=== PATIENT | male | born 1950 | race Hispanic/Latino ===

== ENCOUNTER 2017-02-04 08:17 | Day surgery (SDC) | payer BC, MEDICARE ==
[2017-01-23 08:43] VITALS: BMI 26.6
[2017-02-04] MEDS ORDERED: Propofol 10 mg/ml Inj (20 ML) ONE (10:33)
[2017-02-04] MEDS ORDERED: Sodium Chloride 0.9% 1,000 ML IV SCH (11:15)
[2017-02-04 11:29] VITALS: TEMP 98.3; O2SAT 97
[2017-02-04 11:38] VITALS: RESP 15
[2017-02-04 11:47] VITALS: PULSE 69
[2017-02-04 12:36] VITALS: BP 116/73
== END 2017-02-04 12:00 | disposition home or self-care (01) ==
LOC: ENDO 08:17
PROVIDERS: ATTEND Internal Medicine Gastroenterology
DX: D12.4 Benign neoplasm of descending colon (principal); K63.5 Polyp of colon; K59.00 Constipation, unspecified; K57.30 Diverticulosis of large intestine without perforation or abscess without bleeding; K64.8 Other hemorrhoids; Z80.0 Family history of malignant neoplasm of digestive organs
CPT/HCPCS: 45381; 45385; 88305; J2704; J7040

== ENCOUNTER 2017-12-25 14:10 | Inpatient (IN) | payer MEDICARE, OTHER ==
[2017-12-25 14:20] VITALS: BMI 22.1
--- NOTE | 2017-12-25 14:38 | ED PDOC ---
Arrival/HPI - General Chief Complaint: Dizziness/Lightheaded Time Seen by Provider: 12/25/17 14:23 Historian: Patient - History of Present Illness Narrative History of Present Illness (Text): 12/25/17 14:39 67 year old male, on Plavix, whose PMHx includes HTN, who presents to the ED complaining of lower abdominal pain since this morning. Pt reports lightheadedness and dizziness with walking, stating that the room was "spinning ." Patient additionally reports associated nausea and black stool. Of note, patient had recent colonoscopy done on 06/25 with positive findings for diverticulosis and internal hemorrhoids. Patient denies any fever, chills, vomiting, diarrhea, chest pain, shortness of breath, cough, headache, neck pain, back pain, or any other complaints. PMD: Dr. Jenkins GI: Dr. Noyola 12/25/17 14:47 Time/Duration: 1-3 hours Symptom Course: Unchanged Quality: Aching Activities at Onset: Light Context: Home Past Medical History - Provider Review Nursing Documentation Reviewed: Yes - Cardiac Hx Pacemaker: No - Pulmonary Hx Asthma: Yes - Neurological Hx Paralysis: No - HEENT Hx HEENT Disorder: No - Endocrine/Metabolic Hx Endocrine Disorders: No Hx Diabetes Mellitus Type 2: Yes (borderline no meds) - Hematological/Oncological Hx Blood Transfusions: No - Integumentary Hx Dermatological Disorder: No - Musculoskeletal/Rheumatological Hx Musculoskeletal Disorders: No - Gastrointestinal Hx Gastrointestinal Disorders: Yes (gastritis, hiatal hernia) - Genitourinary/Gynecological Hx Genitourinary Disorders: Yes (blader retention negative test results) - Psychiatric Hx Emotional Abuse: No Hx Physical Abuse: No Hx Substance Use: No - Anesthesia Hx Anesthesia Reactions: No Hx Malignant Hyperthermia: No - Suicidal Assessment Feels Threatened In Home Enviroment: No Family/Social History - Physician Review Nursing Documentation Reviewed: Yes Family/Social History: Unknown Family HX Smoking Status: Never Smoked Hx Alcohol Use: Yes (WINE ON OCCASION) Hx Substance Use: No Allergies/Home Meds Allergies/Adverse Reactions: Allergies Penicillins Allergy (Verified 12/25/17 18:18) RASH SEASONAL Allergy (Uncoded 12/25/17 18:18) CONGESTION Home Medications: Home Meds Medication Instructions Recorded Confirmed Aspirin 81 mg PO DAILY 02/01/15 12/25/17 Atorvastatin Calcium [Lipitor] 40 mg PO DIN 02/01/15 12/25/17 Clopidogrel [Plavix] 75 mg PO DAILY 02/01/15 12/25/17 Losartan/Hydrochlorothiazide 1 tab PO DAILY 01/23/17 12/25/17 [Losartan-Hctz 100-25 mg Tab] RX: Metoprolol Tartrate [Lopressor] 25 mg PO BID 01/23/17 12/25/17 Review of Systems - Physician Review All systems were reviewed & negative as marked: Yes - Review of Systems Constitutional: absent: Fevers Respiratory: absent: SOB, Cough Cardiovascular: absent: Chest Pain Gastrointestinal: Abdominal Pain, Stool Changes, Nausea. absent: Diarrhea, Vomiting Musculoskeletal: absent: Back Pain, Neck Pain Neurological: Dizziness. absent: Headache Physical Exam Vital Signs Reviewed: Yes Vital Signs Temp Pulse Resp BP Pulse Ox 12/25/17 14:20 98.5 F 100 H 18 119/79 99 Temperature: Afebrile Blood Pressure: Normal Pulse: Regular Respiratory Rate: Normal Appearance: Positive for: Non-Toxic, Comfortable, Other (pale appearing) Pain Distress: None Mental Status: Positive for: Alert and Oriented X 3 - Systems Exam Head: Present: Atraumatic, Normocephalic Pupils: Present: PERRL Extroacular Muscles: Present: EOMI Conjunctiva: Present: Normal Mouth: Present: Moist Mucous Membranes Neck: Present: Normal Range of Motion Respiratory/Chest: Present: Clear to Auscultation, Good Air Exchange. No: Respiratory Distress, Accessory Muscle Use Cardiovascular: Present: Regular Rate and Rhythm, Normal S1, S2. No: Murmurs Abdomen: No: Tenderness, Distention, Peritoneal Signs Rectal: Present: Other (guaiac positive) Back: Present: Normal Inspection Upper Extremity: Present: Normal Inspection. No: Cyanosis, Edema Lower Extremity: Present: Normal Inspection. No: Edema Neurological: Present: GCS=15, CN II-XII Intact, Speech Normal Skin: Present: Warm, Dry, Pale. No: Rashes Psychiatric: Present: Alert, Oriented x 3, Normal Insight, Normal Concentration Medical Decision Making ED Course and Treatment: 12/25/17 14:53 Impression: 67 year old pale who presents to the Ed with complaints of lower abdominal pain and dizziness. Differential Diagnosis included but are not limited to: GI bleed, suspect upper. abd soft no ttp. Plan: -- Labs -- EKG -- Chest X-ray -- Protonix -- IV fluids -- UA -- Reassess and disposition Prior Visits: Notes and results from previous visits were reviewed. Progress Notes: 12/25/17 15:39 Chest X-ray reviewed by radiologist, shows no active disease. 12/28/17 12:[address] diggs 12/28/17 12:08 h/h stable labs suggestive of upper gi bleed. - RAD Interpretation Contract Engineer: Radiologist - Jarrell Statement The provider has reviewed the documentation as recorded by the Jarrell romano with [facility] All medical record entries made by the Jarrell were at my direction and personally dictated by me. I have reviewed the chart and agree that the record accurately reflects my personal performance of the history, physical exam, [facility] decision making, and the department course for this patient. I have also personally directed, reviewed, and agree with the discharge instructions and disposition. Disposition/Present on Arrival - Present on Arrival Any Indicators Present on Arrival: No History of DVT/PE: No History of Uncontrolled Diabetes: No Urinary Catheter: No History of Decub. Ulcer: No History Surgical Site Infection Following: None - Disposition Have Diagnosis and Disposition been Completed?: Yes Diagnosis: Upper GI bleed Disposition: HOSPITALIZED Disposition Time: 06:00 Condition: FAIR
[2017-12-25] MEDS ORDERED: Sodium Chloride 0.9% 1,000 ML IV STA (14:39)
--- NOTE | 2017-12-25 15:05 | RAD ---
Date of service: 12/25/2017 HISTORY: abd pain COMPARISON: 05/02/2017 FINDINGS: LUNGS: No active pulmonary disease. PLEURA: No significant pleural effusion identified, no pneumothorax apparent. CARDIOVASCULAR: No atherosclerotic calcification present No radiographic findings to suggest acute or significant cardiovascular disease. OSSEOUS STRUCTURES: No significant abnormalities. VISUALIZED UPPER ABDOMEN: Normal. OTHER FINDINGS: None. IMPRESSION: No active disease. No significant interval change compared to the prior examination(s).
[2017-12-25] MEDS: Pantoprazole 40mg/100mL NS 40 MG/100 ML BAG IVPB SCH ×2 (15:26→21:09)
[2017-12-25 16:06] LABS: BASO # 0.03 K/mm3 (0.0-2.0); BASO % 0.3 % (0.0-3.0); EOS % 0.3 % (1.5-5.0); GRAN # 8.01 (1.4-6.5); GRAN % 85.6 % (50.0-68.0); HEMOGLOBIN 11.7 g/dL (14.0-18.0); LYMPH # 1.1 (1.2-3.4); LYMPH % 11.2 % (22.0-35.0); MEAN CELL VOLUME 91.4 fl (80.0-105.0); MEAN CORPUSCULAR HEMOGLOBIN 31.3 pg (25.0-35.0); MEAN CORPUSCULAR HGB CONC 34.2 g/dl (31.0-37.0); MEAN PLATELET VOLUME 10.4 fl (7.0-11.0); MONO # 0.2 (0.1-0.6); MONO % 2.6 % (1.0-6.0); RBC 3.74 10^6/uL (3.5-6.1); RED CELL DISTRIBUTION WIDTH 12.1 % (11.5-14.5); WHITE BLOOD COUNT 9.4 10^3/ul (4.5-11.0)
[2017-12-25 16:07] LABS: INR 1.11; PARTIAL THROMBOPLASTIN TIME 24.9 Seconds (25.1-36.5); PROTHROMBIN TIME 12.7 SECONDS (9.4-12.5)
[2017-12-25 16:08] LABS: ALB/GLOB RATIO 1.5 (1.1-1.8); ALBUMIN 3.8 g/dL (3.0-4.8); ALT/SGPT 65 U/L (7-56); AST/SGOT 57 U/L (17-59); BLOOD UREA NITROGEN 58 mg/dL (7-21); CALCIUM 9.1 mg/dL (8.4-10.5); GFR NON-AFRICAN AMERICAN > 60; LIPASE 75 U/L (23-300)
[2017-12-25 16:18] LABS: TROPONIN I < 0.01 ng/mL
[2017-12-25 16:33] LABS: CK-MB 3.1 ng/mL (0.0-3.6)
[2017-12-25 17:16] LABS: URINE BILIRUBIN NEGATIVE (NEGATIVE); URINE BLOOD NEGATIVE (NEGATIVE); URINE GLUCOSE (UA) NEGATIVE (NEGATIVE); URINE LEUKOCYTE ESTERASE NEGATIVE Leu/uL (NEGATIVE); URINE PROTEIN NEGATIVE mg/dL (<30 mg/dL); URINE UROBILINOGEN 0.2 E.U./dL (<1 E.U./dL)
[2017-12-25] MEDS ORDERED: Sodium Chloride 0.9% 1,000 ML IV SCH (17:45)
[2017-12-25 17:54] LABS: URINE APPEARANCE CLEAR (CLEAR)
--- NOTE | 2017-12-25 18:39 | CP.PCM.HP ---
<Regis Lerner - Last Filed: 12/25/17 20:25> History of Present Illness - History of Present Illness History of Present Illness: Regis Lerner PGY2 IM H&P Note for Dr. Heath cc: dizziness and lightheadedness after large dark stools Mr. Casas is a 67 year old male with a PMH of CAD, STEMI s/p PTCA w/ OUSMANE x 3 (2014) on ASA/Plavix, diverticulosis, internal hemorrhoids , colonic polyps, BPH and HTN who presented to the ED with dizziness and light headedness that started a few hours prior to presentation. After breakfast, the patient states that he had a normal bowel movement with normal caliber, but then had a large loose BM that was dark in color. Afterward, the patient became light headed and felt dizzy and had to sit down. He states that he had two smaller BM's afterward that were also dark in nature. In ED, the is bedside and states that the patient became dizzy, fell onto the stretcher as he was trying to stand. The patient denies any prior episodes of GI bleed, vomiting or dark stools. He also denies any episodes of fresh blood on toilet paper when wiping. He denies any excessive use of NSAIDS. The patient also denies any current chest or abdominal pain, nausea/vomiting, numbness/tingling. 12-pt ROS was reviewed and is otherwise unremarkable. Prior charts were reviewed and patient's last colonoscopy was 01/2017 and showed diverticulosis, internal hemorrhoids and polyps that were biopsied. Patient had a LHC for STEMI in 01/2015 for which he received OUSMANE in RCA, LAD and PDA. In ED, patient was noted to be guaiac positive by ED MD. He was given NS 1L bolus and started on PTX drip. PMD: Dr. Jenkins Cardio: Dr. Antunez/Dr. Cordero PMH: as above PSH: prostate surgery (w/ Dr. Cortés) Meds: reviewed, as per MAR; patient is unsure why he's still on ASA/Plavix for >1 yr but his (who works w/ Dr. Cordero) states it's because it was a large [place] Allergies: Penicillin (rash), and seasonal allergies SHx: retired; denies tobacco or drug use; occasional EtOH (beer) FHx: mom: colon CA but of heart disease in 60's; dad: of heart disease Present on Admission - Present on Admission Any Indicators Present on Admission: No Review of Systems - Review of Systems All systems: reviewed and no additional remarkable complaints except (as per HPI) Past Patient History - Past Medical History & Family History Past Medical History?: Yes - Past Social History Smoking Status: Never Smoked Alcohol: Occasional Drugs: Denies Home Situation {Lives}: With Family - CARDIAC Hx Heart Attack: Yes (2014 s/p 3 stents) Hx Hypertension: Yes Hx Pacemaker: No - PULMONARY Hx Asthma: Yes - NEUROLOGICAL Hx Paralysis: No - HEENT Hx HEENT Problems: No - ENDOCRINE/METABOLIC Hx Endocrine Disorders: No - HEMATOLOGICAL/ONCOLOGICAL Hx Blood Disorders: No Hx Blood Transfusions: No - INTEGUMENTARY Hx Dermatological Problems: No - MUSCULOSKELETAL/RHEUMATOLOGICAL Hx Musculoskeletal Disorders: No - GASTROINTESTINAL Hx Constipation: Yes - GENITOURINARY/GYNECOLOGICAL Hx Prostate Problems: Yes (BPH ) - PSYCHIATRIC Hx Emotional Abuse: No Hx Physical Abuse: No Hx Substance Use: No - SURGICAL HISTORY Hx Surgeries: Yes Other/Comment: prostate - ANESTHESIA Hx Anesthesia Reactions: No Hx Malignant Hyperthermia: No Meds Allergies/Adverse Reactions: Allergies Allergy/AdvReac Type Severity Reaction Status Date / Time Penicillins Allergy RASH Verified 12/25/17 18:18 SEASONAL Allergy CONGESTION Uncoded 12/25/17 18:18 Physical Exam - Constitutional Appears: No Acute Distress - Head Exam Head Exam: NORMAL INSPECTION - Eye Exam Eye Exam: EOMI, PERRL. absent: Normal appearance Additional comments: pallor - ENT Exam ENT Exam: Mucous Membranes Dry - Neck Exam Neck exam: Positive for: Normal Inspection - Respiratory Exam Respiratory Exam: NORMAL BREATHING PATTERN. absent: Rales, Rhonchi, Wheezes - Cardiovascular Exam Cardiovascular Exam: Tachycardia, +S1, +S2 Additional comments: orthostasis + - GI/Abdominal Exam GI & Abdominal Exam: Soft. absent: Distended, Organomegaly, Tenderness - Extremities Exam Extremities exam: Positive for: full ROM. Negative for: pedal edema - Back Exam Back exam: NORMAL INSPECTION - Neurological Exam Neurological exam: Alert, Oriented x3 - Psychiatric Exam Psychiatric exam: Normal Mood - Skin Skin Exam: Pallor Results - Vital Signs Recent Vital Signs: Last Vital Signs Temp 98.9 F 12/25/17 18:03 Pulse 93 H 12/25/17 18:03 Resp 18 12/25/17 18:03 BP 104/68 12/25/17 16:54 Pulse Ox 97 12/25/17 18:03 - Labs Result Diagrams: 12/25/17 15:53 12/25/17 15:53 Labs: Laboratory Results - last 24 hr 12/25/17 12/25/17 12/25/17 15:53 15:53 15:53 WBC 9.4 D RBC 3.74 Hgb 11.7 L Hct 34.2 L MCV 91.4 MCH 31.3 MCHC 34.2 RDW 12.1 Plt Count 206 MPV 10.4 Gran % 85.6 H Lymph % (Auto) 11.2 L [place] % (Auto) 2.6 Eos % (Auto) 0.3 L Baso % (Auto) 0.3 Gran # 8.01 H Lymph # (Auto) 1.1 L [place] # (Auto) 0.2 Eos # (Auto) 0.0 Baso # (Auto) 0.03 PT 12.7 H INR 1.11 APTT 24.9 L Sodium 135 Potassium 5.4 H Chloride 98 Carbon Dioxide 27 Anion Gap 16 BUN 58 H Creatinine 0.9 Est GFR ( Amer) > 60 Est GFR (Non-Af Amer) > 60 Random Glucose 186 H Calcium 9.1 Magnesium 1.6 L Total Bilirubin 0.7 AST 57 ALT 65 H Alkaline Phosphatase 51 Lactate Dehydrogenase 449 Total Creatine Kinase 326 H CK-MB (CK-2) 3.1 CK-MB (CK-2) % Cancelled Troponin I < 0.01 D Total Protein 6.4 Albumin 3.8 Globulin 2.6 Albumin/Globulin Ratio 1.5 Lipase 75 Urine Color Urine Appearance Urine pH Ur Specific [place] Urine Protein Urine Glucose (UA) Urine Ketones Urine Blood Urine Nitrate Urine Bilirubin Urine Urobilinogen Ur Leukocyte Esterase Blood Type Antibody Screen BBK History Checked 12/25/17 12/25/17 15:53 17:00 WBC RBC Hgb Hct MCV MCH MCHC RDW Plt Count MPV Gran % Lymph % (Auto) [place] % (Auto) Eos % (Auto) Baso % (Auto) Gran # Lymph # (Auto) [place] # (Auto) Eos # (Auto) Baso # (Auto) PT INR APTT Sodium Potassium Chloride Carbon Dioxide Anion Gap BUN Creatinine Est GFR ( Amer) Est GFR (Non-Af Amer) Random Glucose Calcium Magnesium Total Bilirubin AST ALT Alkaline Phosphatase Lactate Dehydrogenase Total Creatine Kinase CK-MB (CK-2) CK-MB (CK-2) % Troponin I Total Protein Albumin Globulin Albumin/Globulin Ratio Lipase Urine Color yellow Urine Appearance Clear Urine pH 6.0 Ur Specific [place] 1.020 Urine Protein Negative Urine Glucose (UA) Negative Urine Ketones 15 H Urine Blood Negative Urine Nitrate Negative Urine Bilirubin Negative Urine Urobilinogen 0.2 Ur Leukocyte Esterase Negative Blood Type A NEGATIVE Antibody Screen Negative BBK History Checked No verified bt Assessment & Plan - Assessment and Plan (Free Text) Assessment: 67 year old male with a PMH of CAD, STEMI s/p PTCA w/ OUSMANE x 3 (2014) on ASA/Plavix, diverticulosis, internal hemorrhoids , colonic polyps, BPH and HTN who presented to the ED with dizziness and light headedness after having a large dark bowel movement. Labs and VS reviewed. Patient is likely having an upper GI bleed, with symptomatic anemia (H/H may be masked by hemo- concentration) evident by orthostasis. Plan: 1. Dizziness likely 2/2 orthostasis due to upper GI bleed - NS 1L bolus followed by NS @ 125 - PTX drip started by ED - holding ASA/Plavix - avoid blood thinners or NSAIDS - NPO - bedrest - CBC q6 hrs - f/u AM labs - EKG was reviewed - VS q6 hrs - due to dizziness, will obtain CT Head - GI consulted, recs appreciated 2. Hx CAD - holding ASA/Plavix at this time until cleared by GI - holding PO meds as BP is well controlled - Cardio is consulted, recs appreciated 3. Hx BPH - ordered bladder scan prn - straight cath if post-void residual is > 200cc PTX gtt SCDs for DVT ppx NPO Case was reviewed and discussed with attending, Dr. Ivana Lerner PGY2 <Ankita Heath - Last Filed: 12/26/17 16:09> Results - Vital Signs Recent Vital Signs: Last Vital Signs Temp 98.5 F 12/26/17 12:11 Pulse 85 12/26/17 12:00 Resp 17 12/26/17 06:45 BP 103/59 L 12/26/17 06:00 Pulse Ox 100 12/26/17 14:58 - Labs Result Diagrams: 12/26/17 13:10 12/26/17 02:04 Labs: Laboratory Results - last 24 hr 12/25/17 12/25/17 12/25/17 15:53 15:53 15:53 WBC 9.4 D RBC 3.74 Hgb 11.7 L Hct 34.2 L MCV 91.4 MCH 31.3 MCHC 34.2 RDW 12.1 Plt Count 206 MPV 10.4 Gran % 85.6 H Lymph % (Auto) 11.2 L [place] % (Auto) 2.6 Eos % (Auto) 0.3 L Baso % (Auto) 0.3 Gran # 8.01 H Lymph # (Auto) 1.1 L [place] # (Auto) 0.2 Eos # (Auto) 0.0 Baso # (Auto) 0.03 PT 12.7 H INR 1.11 APTT 24.9 L Sodium 135 Potassium 5.4 H Chloride 98 Carbon Dioxide 27 Anion Gap 16 BUN 58 H Creatinine 0.9 Est GFR ( Amer) > 60 Est GFR (Non-Af Amer) > 60 POC Glucose (mg/dL) Random Glucose 186 H Hemoglobin A1c Calcium 9.1 Phosphorus Magnesium 1.6 L Total Bilirubin 0.7 AST 57 ALT 65 H Alkaline Phosphatase 51 Lactate Dehydrogenase 449 Total Creatine Kinase 326 H CK-MB (CK-2) 3.1 CK-MB (CK-2) % Cancelled Troponin I < 0.01 D Total Protein 6.4 Albumin 3.8 Globulin 2.6 Albumin/Globulin Ratio 1.5 Triglycerides Cholesterol LDL Cholesterol Direct HDL Cholesterol Lipase 75 TSH 3rd Generation Urine Color Urine Appearance Urine pH Ur Specific [place] Urine Protein Urine Glucose (UA) Urine Ketones Urine Blood Urine Nitrate Urine Bilirubin Urine Urobilinogen Ur Leukocyte Esterase Blood Type Blood Type Confirm Antibody Screen Crossmatch BBK History Checked 12/25/17 12/25/17 12/25/17 15:53 17:00 18:00 WBC RBC Hgb Hct MCV MCH MCHC RDW Plt Count MPV Gran % Lymph % (Auto) [place] % (Auto) Eos % (Auto) Baso % (Auto) Gran # Lymph # (Auto) [place] # (Auto) Eos # (Auto) Baso # (Auto) PT INR APTT Sodium Potassium Chloride Carbon Dioxide Anion Gap BUN Creatinine Est GFR ( Amer) Est GFR (Non-Af Amer) POC Glucose (mg/dL) Random Glucose Hemoglobin A1c Calcium Phosphorus Magnesium Total Bilirubin AST ALT Alkaline Phosphatase Lactate Dehydrogenase Total Creatine Kinase CK-MB (CK-2) CK-MB (CK-2) % Troponin I Total Protein Albumin Globulin Albumin/Globulin Ratio Triglycerides Cholesterol LDL Cholesterol Direct HDL Cholesterol Lipase TSH 3rd Generation Urine Color yellow Urine Appearance Clear Urine pH 6.0 Ur Specific [place] 1.020 Urine Protein Negative Urine Glucose (UA) Negative Urine Ketones 15 H Urine Blood Negative Urine Nitrate Negative Urine Bilirubin Negative Urine Urobilinogen 0.2 Ur Leukocyte Esterase Negative Blood Type A NEGATIVE Blood Type Confirm A NEGATIVE Antibody Screen Negative Crossmatch See Detail BBK History Checked No verified bt 12/25/17 12/25/17 12/25/17 21:01 21:01 21:01 WBC 10.2 RBC 3.19 L Hgb 10.0 L Hct 29.0 L MCV 90.9 MCH 31.3 MCHC 34.5 RDW 12.2 Plt Count 193 MPV 9.9 Gran % 89.6 H Lymph % (Auto) 7.4 L [place] % (Auto) 2.9 Eos % (Auto) 0.0 L Baso % (Auto) 0.1 Gran # 9.13 H Lymph # (Auto) 0.8 L [place] # (Auto) 0.3 Eos # (Auto) 0.0 Baso # (Auto) 0.01 PT INR APTT Sodium Potassium Chloride Carbon Dioxide Anion Gap BUN Creatinine Est GFR ( Amer) Est GFR (Non-Af Amer) POC Glucose (mg/dL) Random Glucose Hemoglobin A1c 5.6 Calcium Phosphorus Magnesium Total Bilirubin AST ALT Alkaline Phosphatase Lactate Dehydrogenase 349 Total Creatine Kinase 225 CK-MB (CK-2) CK-MB (CK-2) % Troponin I 0.02 D Total Protein Albumin Globulin Albumin/Globulin Ratio Triglycerides 126 Cholesterol 99 L LDL Cholesterol Direct 54 HDL Cholesterol 38 Lipase TSH 3rd Generation Urine Color Urine Appearance Urine pH Ur Specific [place] Urine Protein Urine Glucose (UA) Urine Ketones Urine Blood Urine Nitrate Urine Bilirubin Urine Urobilinogen Ur Leukocyte Esterase Blood Type Blood Type Confirm Antibody Screen Crossmatch BBK History Checked 12/25/17 12/25/17 12/26/17 21:01 21:01 02:04 WBC RBC Hgb Hct MCV MCH MCHC RDW Plt Count MPV Gran % Lymph % (Auto) [place] % (Auto) Eos % (Auto) Baso % (Auto) Gran # Lymph # (Auto) [place] # (Auto) Eos # (Auto) Baso # (Auto) PT INR APTT Sodium 135 135 Potassium 4.7 3.9 Chloride 101 103 Carbon Dioxide 26 26 Anion Gap 13 10 BUN 60 H 55 H Creatinine 0.9 0.9 Est GFR ( Amer) > 60 > 60 Est GFR (Non-Af Amer) > 60 > 60 POC Glucose (mg/dL) Random Glucose 167 H 133 H Hemoglobin A1c Calcium 8.6 8.3 L Phosphorus 4.0 Magnesium 2.1 Total Bilirubin 1.0 AST 38 ALT 54 Alkaline Phosphatase 44 Lactate Dehydrogenase 331 L Total Creatine Kinase 181 CK-MB (CK-2) CK-MB (CK-2) % Troponin I 0.02 Total Protein 5.7 L Albumin 3.2 Globulin 2.5 Albumin/Globulin Ratio 1.3 Triglycerides Cholesterol LDL Cholesterol Direct HDL Cholesterol Lipase TSH 3rd Generation 0.40 L Urine Color Urine Appearance Urine pH Ur Specific [place] Urine Protein Urine Glucose (UA) Urine Ketones Urine Blood Urine Nitrate Urine Bilirubin Urine Urobilinogen Ur Leukocyte Esterase Blood Type Blood Type Confirm Antibody Screen Crossmatch BBK History Checked 12/26/17 12/26/17 12/26/17 02:04 08:15 11:46 WBC 7.9 D 7.6 RBC 3.38 L 3.21 L Hgb 10.3 L 9.6 L Hct 29.8 L 28.2 L MCV 88.2 87.9 MCH 30.5 29.9 MCHC 34.6 34.0 RDW 13.5 13.8 Plt Count 160 152 MPV 9.4 9.5 Gran % Lymph % (Auto) [place] % (Auto) Eos % (Auto) Baso % (Auto) Gran # Lymph # (Auto) [place] # (Auto) Eos # (Auto) Baso # (Auto) PT INR APTT Sodium Potassium Chloride Carbon Dioxide Anion Gap BUN Creatinine Est GFR ( Amer) Est GFR (Non-Af Amer) POC Glucose (mg/dL) 114 H Random Glucose Hemoglobin A1c Calcium Phosphorus Magnesium Total Bilirubin AST ALT Alkaline Phosphatase Lactate Dehydrogenase Total Creatine Kinase CK-MB (CK-2) CK-MB (CK-2) % Troponin I Total Protein Albumin Globulin Albumin/Globulin Ratio Triglycerides Cholesterol LDL Cholesterol Direct HDL Cholesterol Lipase TSH 3rd Generation Urine Color Urine Appearance Urine pH Ur Specific [place] Urine Protein Urine Glucose (UA) Urine Ketones Urine Blood Urine Nitrate Urine Bilirubin Urine Urobilinogen Ur Leukocyte Esterase Blood Type Blood Type Confirm Antibody Screen Crossmatch BBK History Checked 12/26/17 13:10 WBC 8.4 RBC 3.30 L Hgb 10.0 L Hct 29.1 L MCV 88.2 MCH 30.3 MCHC 34.4 RDW 14.1 Plt Count 165 MPV 9.6 Gran % Lymph % (Auto) [place] % (Auto) Eos % (Auto) Baso % (Auto) Gran # Lymph # (Auto) [place] # (Auto) Eos # (Auto) Baso # (Auto) PT INR APTT Sodium Potassium Chloride Carbon Dioxide Anion Gap BUN Creatinine Est GFR ( Amer) Est GFR (Non-Af Amer) POC Glucose (mg/dL) Random Glucose Hemoglobin A1c Calcium Phosphorus Magnesium Total Bilirubin AST ALT Alkaline Phosphatase Lactate Dehydrogenase Total Creatine Kinase CK-MB (CK-2) CK-MB (CK-2) % Troponin I Total Protein Albumin Globulin Albumin/Globulin Ratio Triglycerides Cholesterol LDL Cholesterol Direct HDL Cholesterol Lipase TSH 3rd Generation Urine Color Urine Appearance Urine pH Ur Specific [place] Urine Protein Urine Glucose (UA) Urine Ketones Urine Blood Urine Nitrate Urine Bilirubin Urine Urobilinogen Ur Leukocyte Esterase Blood Type Blood Type Confirm Antibody Screen Crossmatch BBK History Checked Attending/Attestation - Attestation I have personally seen and examined this patient.: Yes I have fully participated in the care of the patient.: Yes I have reviewed all pertinent clinical information: Yes Notes (Text): 12/26/17 16:04 Medical record note made by the resident after discussion with my direction and input after the patient was personally seen and examined by me. I have reviewed the chart and agree that the record accurately reflects by personal performance of the history, physical exam, data review, and medical decision-making, in the course for the patient. I have also personally directed the plan of care. 67 year old male with a PMH of CAD, STEMI s/p PTCA w/ OUSMANE x 3 (2014) on ASA/Plavix, diverticulosis, internal hemorrhoids , colonic polyps, BPH and HTN who presented to the ED with dizziness and light headedness after having a large dark bowel movement.Patient is tachycardiac .His symptoms are likely due to upper GI bleeding.We will hold Aspirin ,Plavix and NSAID. Continue aggressive IV hydration and Protonix drip. We will monitor Hemoglobin and Hematocrit We will GI consult for Endoscopy. Management plan was discussed in detail with patient. Education was provided.
--- NOTE | 2017-12-25 19:19 | CP.PCM.CON ---
<Richard Crowley - Last Filed: 12/25/17 19:41> History of Present Illness - History of Present Illness History of Present Illness: Ruddy Casas is a very pleasant 67M who presented with dizziness and black stool. Patient was at home when he developed diarrhea that was black. He has been taking aspirin, plavix daily and motrin as needed for joint pains. He has not been taking PPI medications. He denies previous history of gastric bleeding. He has had colonoscopy with diverticulosis and tubular adenoma. At time of my exam, patient was going for CT scan of head and a rapid response was called for syncope. Patient was alert and oriented but very pale. SBP was 120, and HR 98. PMHx - CAD and CHF. Past Patient History - Past Social History Smoking Status: Never Smoked - CARDIAC Hx Pacemaker: No - PULMONARY Hx Asthma: Yes - NEUROLOGICAL Hx Paralysis: No - HEENT Hx HEENT Problems: No - ENDOCRINE/METABOLIC Hx Endocrine Disorders: No Hx Diabetes Mellitus Type 2: Yes (borderline no meds) - HEMATOLOGICAL/ONCOLOGICAL Hx Blood Transfusions: No - INTEGUMENTARY Hx Dermatological Problems: No - MUSCULOSKELETAL/RHEUMATOLOGICAL Hx Musculoskeletal Disorders: No - GASTROINTESTINAL Hx Gastrointestinal Disorders: Yes (gastritis, hiatal hernia) - GENITOURINARY/GYNECOLOGICAL Hx Genitourinary Disorders: Yes (blader retention negative test results) - PSYCHIATRIC Hx Emotional Abuse: No Hx Physical Abuse: No Hx Substance Use: No - SURGICAL HISTORY Hx Surgeries: Yes - ANESTHESIA Hx Anesthesia Reactions: No Hx Malignant Hyperthermia: No Meds Home Medications: Home Medication List Medication Instructions Recorded Confirmed Type Pantoprazole [Protonix] 40 mg PO DAILY #30 ect 12/28/17 Rx Allergies/Adverse Reactions: Allergies Allergy/AdvReac Type Severity Reaction Status Date / Time Penicillins Allergy RASH Verified 12/25/17 18:18 SEASONAL Allergy CONGESTION Uncoded 12/25/17 18:18 - Medications Medications: Current Medications Pantoprazole Sodium (Protonix 40mg Ivpb) 40 mg in 100 mls @ 20 mls/hr IVPB .Q5H [facility] Last Admin: 12/25/17 15:26 Dose: 20 mls/hr Sodium Chloride (Sodium Chloride 0.9%) 1,000 mls @ 125 mls/hr IV .Q8H [facility] Physical Exam - Constitutional Appears: Non-toxic, No Acute Distress Additional comments: Diaphoretic - Head Exam Head Exam: ATRAUMATIC, NORMAL INSPECTION - Eye Exam Eye Exam: EOMI, Normal appearance - ENT Exam ENT Exam: Mucous Membranes Moist, Normal Exam - Respiratory Exam Respiratory Exam: Clear to Auscultation Bilateral, NORMAL BREATHING PATTERN - Cardiovascular Exam Cardiovascular Exam: Tachycardia, RRR, +S1, +S2 - GI/Abdominal Exam GI & Abdominal Exam: Normal Bowel Sounds, Soft. absent: Distended, Tenderness - Rectal Exam Rectal Exam: Deferred - Extremities Exam Extremities exam: Positive for: normal inspection - Neurological Exam Neurological exam: Alert, CN II-XII Intact, Oriented x3 - Psychiatric Exam Psychiatric exam: Normal Affect, Normal Mood - Skin Skin Exam: Diaphoretic, Pallor Results - Vital Signs Recent Vital Signs: Last Vital Signs Temp 98.9 F 12/25/17 18:03 Pulse 93 H 12/25/17 18:03 Resp 18 12/25/17 18:03 BP 104/68 12/25/17 16:54 Pulse Ox 97 12/25/17 18:03 - Labs Result Diagrams: 12/25/17 15:53 12/25/17 15:53 Labs: Laboratory Results - last 24 hr 12/25/17 12/25/17 12/25/17 15:53 15:53 15:53 WBC 9.4 D RBC 3.74 Hgb 11.7 L Hct 34.2 L MCV 91.4 MCH 31.3 MCHC 34.2 RDW 12.1 Plt Count 206 MPV 10.4 Gran % 85.6 H Lymph % (Auto) 11.2 L [place] % (Auto) 2.6 Eos % (Auto) 0.3 L Baso % (Auto) 0.3 Gran # 8.01 H Lymph # (Auto) 1.1 L [place] # (Auto) 0.2 Eos # (Auto) 0.0 Baso # (Auto) 0.03 PT 12.7 H INR 1.11 APTT 24.9 L Sodium 135 Potassium 5.4 H Chloride 98 Carbon Dioxide 27 Anion Gap 16 BUN 58 H Creatinine 0.9 Est GFR ( Amer) > 60 Est GFR (Non-Af Amer) > 60 Random Glucose 186 H Calcium 9.1 Magnesium 1.6 L Total Bilirubin 0.7 AST 57 ALT 65 H Alkaline Phosphatase 51 Lactate Dehydrogenase 449 Total Creatine Kinase 326 H CK-MB (CK-2) 3.1 CK-MB (CK-2) % Cancelled Troponin I < 0.01 D Total Protein 6.4 Albumin 3.8 Globulin 2.6 Albumin/Globulin Ratio 1.5 Lipase 75 Urine Color Urine Appearance Urine pH Ur Specific [place] Urine Protein Urine Glucose (UA) Urine Ketones Urine Blood Urine Nitrate Urine Bilirubin Urine Urobilinogen Ur Leukocyte Esterase Blood Type Blood Type Confirm Antibody Screen BBK History Checked 12/25/17 12/25/17 12/25/17 15:53 17:00 18:00 WBC RBC Hgb Hct MCV MCH MCHC RDW Plt Count MPV Gran % Lymph % (Auto) [place] % (Auto) Eos % (Auto) Baso % (Auto) Gran # Lymph # (Auto) [place] # (Auto) Eos # (Auto) Baso # (Auto) PT INR APTT Sodium Potassium Chloride Carbon Dioxide Anion Gap BUN Creatinine Est GFR ( Amer) Est GFR (Non-Af Amer) Random Glucose Calcium Magnesium Total Bilirubin AST ALT Alkaline Phosphatase Lactate Dehydrogenase Total Creatine Kinase CK-MB (CK-2) CK-MB (CK-2) % Troponin I Total Protein Albumin Globulin Albumin/Globulin Ratio Lipase Urine Color yellow Urine Appearance Clear Urine pH 6.0 Ur Specific [place] 1.020 Urine Protein Negative Urine Glucose (UA) Negative Urine Ketones 15 H Urine Blood Negative Urine Nitrate Negative Urine Bilirubin Negative Urine Urobilinogen 0.2 Ur Leukocyte Esterase Negative Blood Type A NEGATIVE Blood Type Confirm A NEGATIVE Antibody Screen Negative BBK History Checked No verified bt Assessment & Plan - Assessment and Plan (Free Text) Assessment: 67M who has been taking aspirin, plavix, and as needed motrin without PPI is presenting with dark stool and syncope likely due to upper GI bleed #Acute blood loss anemia due to GI bleed #Syncope #CAD #possible chronic systolic CHF #HTN #Tubular adenoma PLAN -Likely upper GI bleed PUD -Recheck Hb q6h -Transfuse pRBCs for Hb less than 7 or symptomatic anemia. We will order 4 units and transfuse as needed after repeat CBC. -Continue PPI drip -Hold aspirin, plavix, NSAIDs, anticoagulation -We will consider platelets after discussion with cardiology and before EGD. -Plan for EGD tomorrow AM. -Discussed with ICU team about conservative fluid management. -NPO - Date & Time Date: 12/25/17 Time: 19:24 <Earnest Noyola V - Last Filed: 12/30/17 00:01> Meds - Medications Medications: Current Medications Pantoprazole Sodium (Protonix 40mg Ivpb) 40 mg in 100 mls @ 20 mls/hr IVPB .Q5H [facility] Last Admin: 12/25/17 21:09 Dose: 20 mls/hr Sodium Chloride (Sodium Chloride 0.9%) 1,000 mls @ 125 mls/hr IV .Q8H [facility] Sodium Chloride (Sodium Chloride 0.9%) 1,000 mls @ 60 mls/hr IV .[id number] [facility] Metoprolol Tartrate (Lopressor) 12.5 mg PO BID [facility] Last Admin: 12/25/17 21:09 Dose: 12.5 mg Results - Vital Signs Recent Vital Signs: Last Vital Signs Temp 99.1 F 12/25/17 23:33 Pulse 79 12/25/17 23:33 Resp 20 12/25/17 23:33 BP 113/64 12/25/17 23:33 Pulse Ox 100 12/25/17 23:00 - Labs Result Diagrams: 12/28/17 17:55 12/28/17 05:00 Labs: Laboratory Results - last 24 hr 12/25/17 12/25/17 12/25/17 15:53 15:53 15:53 WBC 9.4 D RBC 3.74 Hgb 11.7 L Hct 34.2 L MCV 91.4 MCH 31.3 MCHC 34.2 RDW 12.1 Plt Count 206 MPV 10.4 Gran % 85.6 H Lymph % (Auto) 11.2 L [place] % (Auto) 2.6 Eos % (Auto) 0.3 L Baso % (Auto) 0.3 Gran # 8.01 H Lymph # (Auto) 1.1 L [place] # (Auto) 0.2 Eos # (Auto) 0.0 Baso # (Auto) 0.03 PT 12.7 H INR 1.11 APTT 24.9 L Sodium 135 Potassium 5.4 H Chloride 98 Carbon Dioxide 27 Anion Gap 16 BUN 58 H Creatinine 0.9 Est GFR ( Amer) > 60 Est GFR (Non-Af Amer) > 60 Random Glucose 186 H Calcium 9.1 Magnesium 1.6 L Total Bilirubin 0.7 AST 57 ALT 65 H Alkaline Phosphatase 51 Lactate Dehydrogenase 449 Total Creatine Kinase 326 H CK-MB (CK-2) 3.1 CK-MB (CK-2) % Cancelled Troponin I < 0.01 D Total Protein 6.4 Albumin 3.8 Globulin 2.6 Albumin/Globulin Ratio 1.5 Triglycerides Cholesterol LDL Cholesterol Direct HDL Cholesterol Lipase 75 TSH 3rd Generation Urine Color Urine Appearance Urine pH Ur Specific [place] Urine Protein Urine Glucose (UA) Urine Ketones Urine Blood Urine Nitrate Urine Bilirubin Urine Urobilinogen Ur Leukocyte Esterase Blood Type Blood Type Confirm Antibody Screen Crossmatch BBK History Checked 12/25/17 12/25/17 12/25/17 15:53 17:00 18:00 WBC RBC Hgb Hct MCV MCH MCHC RDW Plt Count MPV Gran % Lymph % (Auto) [place] % (Auto) Eos % (Auto) Baso % (Auto) Gran # Lymph # (Auto) [place] # (Auto) Eos # (Auto) Baso # (Auto) PT INR APTT Sodium Potassium Chloride Carbon Dioxide Anion Gap BUN Creatinine Est GFR ( Amer) Est GFR (Non-Af Amer) Random Glucose Calcium Magnesium Total Bilirubin AST ALT Alkaline Phosphatase Lactate Dehydrogenase Total Creatine Kinase CK-MB (CK-2) CK-MB (CK-2) % Troponin I Total Protein Albumin Globulin Albumin/Globulin Ratio Triglycerides Cholesterol LDL Cholesterol Direct HDL Cholesterol Lipase TSH 3rd Generation Urine Color yellow Urine Appearance Clear Urine pH 6.0 Ur Specific [place] 1.020 Urine Protein Negative Urine Glucose (UA) Negative Urine Ketones 15 H Urine Blood Negative Urine Nitrate Negative Urine Bilirubin Negative Urine Urobilinogen 0.2 Ur Leukocyte Esterase Negative Blood Type A NEGATIVE Blood Type Confirm A NEGATIVE Antibody Screen Negative Crossmatch See Detail BBK History Checked No verified bt 12/25/17 12/25/17 12/25/17 21:01 21:01 21:01 WBC 10.2 RBC 3.19 L Hgb 10.0 L Hct 29.0 L MCV 90.9 MCH 31.3 MCHC 34.5 RDW 12.2 Plt Count 193 MPV 9.9 Gran % 89.6 H Lymph % (Auto) 7.4 L [place] % (Auto) 2.9 Eos % (Auto) 0.0 L Baso % (Auto) 0.1 Gran # 9.13 H Lymph # (Auto) 0.8 L [place] # (Auto) 0.3 Eos # (Auto) 0.0 Baso # (Auto) 0.01 PT INR APTT Sodium Potassium Chloride Carbon Dioxide Anion Gap BUN Creatinine Est GFR ( Amer) Est GFR (Non-Af Amer) Random Glucose Calcium Magnesium Total Bilirubin AST ALT Alkaline Phosphatase Lactate Dehydrogenase 349 Total Creatine Kinase 225 CK-MB (CK-2) CK-MB (CK-2) % Troponin I 0.02 D Total Protein Albumin Globulin Albumin/Globulin Ratio Triglycerides 126 Cholesterol 99 L LDL Cholesterol Direct 54 HDL Cholesterol 38 Lipase TSH 3rd Generation 0.40 L Urine Color Urine Appearance Urine pH Ur Specific [place] Urine Protein Urine Glucose (UA) Urine Ketones Urine Blood Urine Nitrate Urine Bilirubin Urine Urobilinogen Ur Leukocyte Esterase Blood Type Blood Type Confirm Antibody Screen Crossmatch BBK History Checked 12/25/17 21:01 WBC RBC Hgb Hct MCV MCH MCHC RDW Plt Count MPV Gran % Lymph % (Auto) [place] % (Auto) Eos % (Auto) Baso % (Auto) Gran # Lymph # (Auto) [place] # (Auto) Eos # (Auto) Baso # (Auto) PT INR APTT Sodium 135 Potassium 4.7 Chloride 101 Carbon Dioxide 26 Anion Gap 13 BUN 60 H Creatinine 0.9 Est GFR ( Amer) > 60 Est GFR (Non-Af Amer) > 60 Random Glucose 167 H Calcium 8.6 Magnesium Total Bilirubin AST ALT Alkaline Phosphatase Lactate Dehydrogenase Total Creatine Kinase CK-MB (CK-2) CK-MB (CK-2) % Troponin I Total Protein Albumin Globulin Albumin/Globulin Ratio Triglycerides Cholesterol LDL Cholesterol Direct HDL Cholesterol Lipase TSH 3rd Generation Urine Color Urine Appearance Urine pH Ur Specific [place] Urine Protein Urine Glucose (UA) Urine Ketones Urine Blood Urine Nitrate Urine Bilirubin Urine Urobilinogen Ur Leukocyte Esterase Blood Type Blood Type Confirm Antibody Screen Crossmatch BBK History Checked Attending/Attestation - Attestation I have personally seen and examined this patient.: Yes I have fully participated in the care of the patient.: Yes I have reviewed all pertinent clinical information: Yes Notes (Text): This is an addendum to GI consult report dictated by the GI Fellow.The patient was seen and examined earlier. Medical records, lab studies, imagings were reviewed. Last 24 hours events reviewed. Agreed with the above treatment plan as outlined in GI Fellow 's notes with the addition of the following Admitted with upper GI bleeding and syncopal episode History of taking NSAIDs Patient is also on aspirin and plavix for CAD stent placement three years ago On examination abdomen soft non-tender Followup of Hb may need platelet transfusion if active bleeding EGD after optimization of the patient's condition High dose PPI Discussed with the security intelligence analyst and patient's family 12/29/17 23:58
--- NOTE | 2017-12-25 19:31 | CP.PCM.CON ---
<Regis Lerner - Last Filed: 12/25/17 20:26> History of Present Illness - History of Present Illness History of Present Illness: Regis Lerner PGY2 ICU Consult Note for Dr. Crockett Mr. Casas is a 67 year old male with a PMH of CAD, STEMI s/p PTCA w/ OUSMANE x 3 (2014) on ASA/Plavix, diverticulosis, internal hemorrhoids, colonic polyps, BPH and HTN admitted for suspected upper GI bleed after becoming dizzy and weak after passing a large amount of loose dark stools earlier today. The patient was noted to be guaiac positive in ED, and was started on PTX gtt and given 1L NS bolus. Upon admission, as he was waiting to get a CT Head, he became dizzy again and was noted by radiology staff to be pre-syncopal and pale. BIOLOGY FACULTY MEMBER was called and ICU was asked to evaluate the patient (refer to BIOLOGY FACULTY MEMBER note for further information). The patient denies any dizziness or weakness upon evaluation, however, with changes in position (e.g. from strecher to CT bed), he does get dizzy and experiences orthostasis. He denies chest pain, shortness of breath, abdominal pain, or having any more bowel movements. 12-pt ROS was reviewed and is otherwise unremarkable. Prior charts were reviewed and patient's last colonoscopy was 01/2017 and showed diverticulosis, internal hemorrhoids and polyps that were biopsied. Patient had a LHC for STEMI in 01/2015 for which he received OUSMANE in RCA, LAD and PDA. PMD: Dr. Jenkins Cardio: Dr. Antunez/Dr. Cordero PMH: as above PSH: prostate surgery (w/ Dr. Cortés) Meds: reviewed, as per MAR; patient is unsure why he's still on ASA/Plavix for >1 yr but his (who works w/ Dr. Cordero) states it's because it was a large GA Allergies: Penicillin (rash), and seasonal allergies SHx: retired; denies tobacco or drug use; occasional EtOH (beer) FHx: mom: colon CA but of heart disease in 60's; dad: of heart disease Review of Systems - Review of Systems All systems: reviewed and no additional remarkable complaints except (as per HPI) Past Patient History - Past Medical History & Family History Past Medical History?: Yes - Past Social History Smoking Status: Never Smoked Alcohol: Occasional Drugs: Denies Home Situation {Lives}: With Family - CARDIAC Hx Heart Attack: Yes Hx Hypertension: Yes Hx Pacemaker: No - PULMONARY Hx Asthma: Yes - NEUROLOGICAL Hx Paralysis: No - HEENT Hx HEENT Problems: No - RENAL Hx Chronic Kidney Disease: No - ENDOCRINE/METABOLIC Hx Endocrine Disorders: No - HEMATOLOGICAL/ONCOLOGICAL Hx Blood Disorders: No Hx Blood Transfusions: No - INTEGUMENTARY Hx Dermatological Problems: No - MUSCULOSKELETAL/RHEUMATOLOGICAL Hx Musculoskeletal Disorders: No - GASTROINTESTINAL Hx Constipation: Yes - GENITOURINARY/GYNECOLOGICAL Hx Prostate Problems: Yes (BPH) - PSYCHIATRIC Hx Emotional Abuse: No Hx Physical Abuse: No Hx Substance Use: No - SURGICAL HISTORY Hx Surgeries: Yes - ANESTHESIA Hx Anesthesia Reactions: No Hx Malignant Hyperthermia: No Meds Allergies/Adverse Reactions: Allergies Allergy/AdvReac Type Severity Reaction Status Date / Time Penicillins Allergy RASH Verified 12/25/17 18:18 SEASONAL Allergy CONGESTION Uncoded 12/25/17 18:18 - Medications Medications: Current Medications Pantoprazole Sodium (Protonix 40mg Ivpb) 40 mg in 100 mls @ 20 mls/hr IVPB .Q5H [facility] Last Admin: 12/25/17 15:26 Dose: 20 mls/hr Sodium Chloride (Sodium Chloride 0.9%) 1,000 mls @ 125 mls/hr IV .Q8H [facility] Physical Exam - Constitutional Appears: Well, Non-toxic, No Acute Distress - Head Exam Head Exam: NORMAL INSPECTION - Eye Exam Eye Exam: EOMI, PERRL Additional comments: pale conjuctiva - ENT Exam ENT Exam: Mucous Membranes Dry - Neck Exam Neck exam: Positive for: Normal Inspection - Respiratory Exam Respiratory Exam: NORMAL BREATHING PATTERN. absent: Rhonchi, Wheezes, R espiratory Distress - Cardiovascular Exam Cardiovascular Exam: Tachycardia, +S1, +S2. absent: Systolic Murmur - GI/Abdominal Exam GI & Abdominal Exam: Normal Bowel Sounds, Soft. absent: Distended, Tenderness - Extremities Exam Extremities exam: Positive for: full ROM. Negative for: pedal edema - Back Exam Back exam: NORMAL INSPECTION - Neurological Exam Neurological exam: Alert, CN II-XII Intact, Oriented x3 - Psychiatric Exam Psychiatric exam: Normal Mood - Skin Skin Exam: Dry, Pallor Results - Vital Signs Recent Vital Signs: Last Vital Signs Temp 98.9 F 12/25/17 18:03 Pulse 93 H 12/25/17 18:03 Resp 18 12/25/17 18:03 BP 104/68 12/25/17 16:54 Pulse Ox 97 12/25/17 18:03 - Labs Result Diagrams: 12/25/17 15:53 12/25/17 15:53 Labs: Laboratory Results - last 24 hr 12/25/17 12/25/17 12/25/17 15:53 15:53 15:53 WBC 9.4 D RBC 3.74 Hgb 11.7 L Hct 34.2 L MCV 91.4 MCH 31.3 MCHC 34.2 RDW 12.1 Plt Count 206 MPV 10.4 Gran % 85.6 H Lymph % (Auto) 11.[address] % (Auto) 2.6 Eos % (Auto) 0.3 L Baso % (Auto) 0.3 Gran # 8.01 H Lymph # (Auto) 1.[address] [place] # (Auto) 0.2 Eos # (Auto) 0.0 Baso # (Auto) 0.03 PT 12.7 H INR 1.11 APTT 24.9 L Sodium 135 Potassium 5.4 H Chloride 98 Carbon Dioxide 27 Anion Gap 16 BUN 58 H Creatinine 0.9 Est GFR ( Amer) > 60 Est GFR (Non-Af Amer) > 60 Random Glucose 186 H Calcium 9.1 Magnesium 1.6 L Total Bilirubin 0.7 AST 57 ALT 65 H Alkaline Phosphatase 51 Lactate Dehydrogenase 449 Total Creatine Kinase 326 H CK-MB (CK-2) 3.1 CK-MB (CK-2) % Cancelled Troponin I < 0.01 D Total Protein 6.4 Albumin 3.8 Globulin 2.6 Albumin/Globulin Ratio 1.5 Lipase 75 Urine Color Urine Appearance Urine pH Ur Specific [place]range Urine Protein Urine Glucose (UA) Urine Ketones Urine Blood Urine Nitrate Urine Bilirubin Urine Urobilinogen Ur Leukocyte Esterase Blood Type Blood Type Confirm Antibody Screen Crossmatch BBK History Checked 12/25/17 12/25/17 12/25/17 15:53 17:00 18:00 WBC RBC Hgb Hct MCV MCH MCHC RDW Plt Count MPV Gran % Lymph % (Auto) [place] % (Auto) Eos % (Auto) Baso % (Auto) Gran # Lymph # (Auto) [place] # (Auto) Eos # (Auto) Baso # (Auto) PT INR APTT Sodium Potassium Chloride Carbon Dioxide Anion Gap BUN Creatinine Est GFR ( Amer) Est GFR (Non-Af Amer) Random Glucose Calcium Magnesium Total Bilirubin AST ALT Alkaline Phosphatase Lactate Dehydrogenase Total Creatine Kinase CK-MB (CK-2) CK-MB (CK-2) % Troponin I Total Protein Albumin Globulin Albumin/Globulin Ratio Lipase Urine Color yellow Urine Appearance Clear Urine pH 6.0 Ur Specific [place] 1.020 Urine Protein Negative Urine Glucose (UA) Negative Urine Ketones 15 H Urine Blood Negative Urine Nitrate Negative Urine Bilirubin Negative Urine Urobilinogen 0.2 Ur Leukocyte Esterase Negative Blood Type A NEGATIVE Blood Type Confirm A NEGATIVE Antibody Screen Negative Crossmatch See Detail BBK History Checked No verified bt Assessment & Plan - Assessment and Plan (Free Text) Assessment: 67 year old male with a PMH of CAD, STEMI s/p PTCA w/ OUSMANE x 3 (2014) on ASA/Plavix, diverticulosis, internal hemorrhoids, colonic polyps, BPH and HTN admitted for suspected upper GI bleed after becoming dizzy and weak after passing a large amount of loose dark stools earlier today. He is admitted for suspected upper GI bleed, with resulting symptomatic anemia and severe orthostasis. GI has evaluated the patient during the BIOLOGY FACULTY MEMBER and recommend 4u pRBC to be typed and crossed and transfuse as needed. They are recommending endoscopy in AM, and will order platelets if needed. Patient will be monitored in ICU overnight. Plan: Neuro - at baseline - monitor for changes in baseline - CT head not obtained due to patient being unstable at this time - maintain normothermia CV - maintain MAP > 65 - holding ASA/Plavix - holding PO ant-hypertensive meds as BP is normal - consider starting at later time - NS @ 125 but monitor for signs of fluid overload especially as blood being given - Prior echo was reviewed, none that are recent - troponin q6h to r/o atypical presentation of ACS - ordered A1C, lipid panel and TSH - EKG reviewed Pulm - maintain SaO2 > 92% - patient is stable at this time and not requiring any further breathing intervention - O2 PRN GI - NPO - cont PTX gtt - GI consulted, recommending AM endoscopy Heme likely upper GI bleed w/ symptomatic anemia masked w/ hemo-concentration - pRBC 4u typed and crossed - transfuse two at this time and reassess - Lasix maybe given in between to avoid fluid overload - CBC q6h - bladder scan prn - straight cath if post-void residual > 200 cc Endo - maintain euglycemia - TSH and A1c ordered ID - no signs of infection at this time Case was reviewed and discussed with attending, Dr. Bon Lerner PGY2 <Kiel Crockett - Last Filed: 12/26/17 06:26> Meds - Medications Medications: Current Medications Pantoprazole Sodium (Protonix 40mg Ivpb) 40 mg in 100 mls @ 20 mls/hr IVPB .Q5H [facility] Last Admin: 12/26/17 05:46 Dose: 20 mls/hr Sodium Chloride (Sodium Chloride 0.9%) 1,000 mls @ 125 mls/hr IV .Q8H [facility]A Sodium Chloride (Sodium Chloride 0.9%) 1,000 mls @ 60 mls/hr IV .[id number] [facility] Last Admin: 12/25/17 22:30 Dose: 60 mls/hr Metoprolol Tartrate (Lopressor) 12.5 mg PO BID ISA Last Admin: 12/25/17 21:09 Dose: 12.5 mg Results - Vital Signs Recent Vital Signs: Last Vital Signs Temp 98.7 F 12/26/17 01:15 Pulse 71 12/26/17 06:03 Resp 19 12/26/17 01:15 BP 124/62 12/26/17 01:15 Pulse Ox 100 12/25/17 23:00 - Labs Result Diagrams: 12/26/17 02:04 12/26/17 02:04 Labs: Laboratory Results - last 24 hr 12/25/17 12/25/17 12/25/17 15:53 15:53 15:53 WBC 9.4 D RBC 3.74 Hgb 11.7 L Hct 34.2 L MCV 91.4 MCH 31.3 MCHC 34.2 RDW 12.1 Plt Count 206 MPV 10.4 Gran % 85.6 H Lymph % (Auto) 11.[address] [place] % (Auto) 2.6 Eos % (Auto) 0.3 L Baso % (Auto) 0.3 Gran # 8.01 H Lymph # (Auto) 1.[address] [place] # (Auto) 0.2 Eos # (Auto) 0.0 Baso # (Auto) 0.03 PT 12.7 H INR 1.11 APTT 24.9 L Sodium 135 Potassium 5.4 H Chloride 98 Carbon Dioxide 27 Anion Gap 16 BUN 58 H Creatinine 0.9 Est GFR ( Amer) > 60 Est GFR (Non-Af Amer) > 60 Random Glucose 186 H Calcium 9.1 Phosphorus Magnesium 1.6 L Total Bilirubin 0.7 AST 57 ALT 65 H Alkaline Phosphatase 51 Lactate Dehydrogenase 449 Total Creatine Kinase 326 H CK-MB (CK-2) 3.1 CK-MB (CK-2) % Cancelled Troponin I < 0.01 D Total Protein 6.4 Albumin 3.8 Globulin 2.6 Albumin/Globulin Ratio 1.5 Triglycerides Cholesterol LDL Cholesterol Direct HDL Cholesterol Lipase 75 TSH 3rd Generation Urine Color Urine Appearance Urine pH Ur Specific [place]range Urine Protein Urine Glucose (UA) Urine Ketones Urine Blood Urine Nitrate Urine Bilirubin Urine Urobilinogen Ur Leukocyte Esterase Blood Type Blood Type Confirm Antibody Screen Crossmatch BBK History Checked 12/25/17 12/25/17 12/25/17 15:53 17:00 18:00 WBC RBC Hgb Hct MCV MCH MCHC RDW Plt Count MPV Gran % Lymph % (Auto) [place] % (Auto) Eos % (Auto) Baso % (Auto) Gran # Lymph # (Auto) [place] # (Auto) Eos # (Auto) Baso # (Auto) PT INR APTT Sodium Potassium Chloride Carbon Dioxide Anion Gap BUN Creatinine Est GFR ( Amer) Est GFR (Non-Af Amer) Random Glucose Calcium Phosphorus Magnesium Total Bilirubin AST ALT Alkaline Phosphatase Lactate Dehydrogenase Total Creatine Kinase CK-MB (CK-2) CK-MB (CK-2) % Troponin I Total Protein Albumin Globulin Albumin/Globulin Ratio Triglycerides Cholesterol LDL Cholesterol Direct HDL Cholesterol Lipase TSH 3rd Generation Urine Color yellow Urine Appearance Clear Urine pH 6.0 Ur Specific [place] 1.020 Urine Protein Negative Urine Glucose (UA) Negative Urine Ketones 15 H Urine Blood Negative Urine Nitrate Negative Urine Bilirubin Negative Urine Urobilinogen 0.2 Ur Leukocyte Esterase Negative Blood Type A NEGATIVE Blood Type Confirm A NEGATIVE Antibody Screen Negative Crossmatch See Detail BBK History Checked No verified bt 12/25/17 12/25/17 12/25/17 21:01 21:01 21:01 WBC 10.2 RBC 3.19 L Hgb 10.0 L Hct 29.0 L MCV 90.9 MCH 31.3 MCHC 34.5 RDW 12.2 Plt Count 193 MPV 9.9 Gran % 89.6 H Lymph % (Auto) 7.[address] [place] % (Auto) 2.9 Eos % (Auto) 0.0 L Baso % (Auto) 0.1 Gran # 9.13 H Lymph # (Auto) 0.[address] [place] # (Auto) 0.3 Eos # (Auto) 0.0 Baso # (Auto) 0.01 PT INR APTT Sodium Potassium Chloride Carbon Dioxide Anion Gap BUN Creatinine Est GFR ( Amer) Est GFR (Non-Af Amer) Random Glucose Calcium Phosphorus Magnesium Total Bilirubin AST ALT Alkaline Phosphatase Lactate Dehydrogenase 349 Total Creatine Kinase 225 CK-MB (CK-2) CK-MB (CK-2) % Troponin I 0.02 D Total Protein Albumin Globulin Albumin/Globulin Ratio Triglycerides 126 Cholesterol 99 L LDL Cholesterol Direct 54 HDL Cholesterol 38 Lipase TSH 3rd Generation 0.40 L Urine Color Urine Appearance Urine pH Ur Specific [place] Urine Protein Urine Glucose (UA) Urine Ketones Urine Blood Urine Nitrate Urine Bilirubin Urine Urobilinogen Ur Leukocyte Esterase Blood Type Blood Type Confirm Antibody Screen Crossmatch BBK History Checked 12/25/17 12/26/17 12/26/17 21:01 02:04 02:04 WBC 7.9 D RBC 3.38 L Hgb 10.3 L Hct 29.8 L MCV 88.2 MCH 30.5 MCHC 34.6 RDW 13.5 Plt Count 160 MPV 9.4 Gran % Lymph % (Auto) [place] % (Auto) Eos % (Auto) Baso % (Auto) Gran # Lymph # (Auto) [place] # (Auto) Eos # (Auto) Baso # (Auto) PT INR APTT Sodium 135 135 Potassium 4.7 3.9 Chloride 101 103 Carbon Dioxide 26 26 Anion Gap 13 10 BUN 60 H 55 H Creatinine 0.9 0.9 Est GFR ( Amer) > 60 > 60 Est GFR (Non-Af Amer) > 60 > 60 Random Glucose 167 H 133 H Calcium 8.6 8.3 L Phosphorus 4.0 Magnesium 2.1 Total Bilirubin 1.0 AST 38 ALT 54 Alkaline Phosphatase 44 Lactate Dehydrogenase 331 L Total Creatine Kinase 181 CK-MB (CK-2) CK-MB (CK-2) % Troponin I 0.02 Total Protein 5.7 L Albumin 3.2 Globulin 2.5 Albumin/Globulin Ratio 1.3 Triglycerides Cholesterol LDL Cholesterol Direct HDL Cholesterol Lipase TSH 3rd Generation Urine Color Urine Appearance Urine pH Ur Specific [place] Urine Protein Urine Glucose (UA) Urine Ketones Urine Blood Urine Nitrate Urine Bilirubin Urine Urobilinogen Ur Leukocyte Esterase Blood Type Blood Type Confirm Antibody Screen Crossmatch BBK History Checked Attending/Attestation - Attestation I have personally seen and examined this patient.: Yes I have fully participated in the care of the patient.: Yes I have reviewed all pertinent clinical information: Yes
--- NOTE | 2017-12-25 19:33 | PCM.RRT ---
<Quinn Thorne - Last Filed: 12/25/17 19:33> COLD PRESS OPERATOR Nurse Assessment - Situation Date: 12/25/17 Time COLD PRESS OPERATOR was called: 18:56 COLD PRESS OPERATOR Responder Arrival Time: 18:58 COLD PRESS OPERATOR Location:: ground floor CT scan COLD PRESS OPERATOR Reason for Call: Looks Sicker COLD PRESS OPERATOR Called By: RN - IV IV Inserted during COLD PRESS OPERATOR?: No - Respiratory Oxygen Delivery Method: Nasal Cannula @L/min Received Nebulizer Treatments:: No Was the Patient Ventilated with Bag/Mask 100% O2?: No Secretions Suctioned?: No Was the Patient Intubated?: No Was the Patient Placed on a Ventilator?: No - Diagnostic Test Ordered EKG: Yes CT Scan: No - Stat Labs Ordered COLD PRESS OPERATOR Stat Labs Ordered: CBC CPR started during COLD PRESS OPERATOR?: No - Freeman Coma Scale Coma Scale Eye Opening: Spontaneous Coma Scale Motor: Obeys Commands Movement Coma Scale Verbal: Oriented - Time COLD PRESS OPERATOR Ended Time COLD PRESS OPERATOR Ended: 19:30 - Recommendations 5) COLD PRESS OPERATOR Level of Care Recommendations: Transfer to ICU Notifications: Attending Physician, Consultations, Family or Designated Caregiver I.Reason for COLD PRESS OPERATOR - A) Acute Change in Patient: (Select all that apply): Staff member or family is worried about patient Subjective: Pt reported feeling weak, diaphoretic. Pt admitted today for suspected GI bleed. Pt was about to receive a CT scan and when he was being moved from one bed to another, he began feeling weak an dizzy. He stated that he did not feel well. Pt did not fall or hit his head. Pt transferred to the ICU - Neurological Status (Select all that apply): Alert, Responsive, Oriented, Verbal, Follows Commands - Respiratory Oxygen Delivery Method: Nasal Cannula @L/min - Head Head Exam: ATRAUMATIC, NORMAL INSPECTION, NORMOCEPHALIC - Eyes Eye Exam: EOMI - Respiratory Exam Respiratory Exam: NORMAL BREATHING PATTERN - Cardiovascular Exam Cardiovascular Exam: REGULAR RHYTHM, RRR, +S1, +S2 - Neurological Exam Neurological Exam: Alert, Awake, Oriented x3 - Extremities Exam Extremities Exam: Full ROM Plan - Assessment of Findings&Treatment Plan Weakness/ Dizziness - stat EKG: NSR - stat H/H - stat type and cross - CT canceled, will reschedule at a later date - Pt consented for blood transfusion - Dr Noyola notified, at bedside during rapid response, recommends 4 units, with close monitoring for overload - pt transferred to [facility] for close monitoring - pt at bedside <Caleb Rios - Last Filed: 12/26/17 15:29> Attending/Attestation - Attestation I have personally seen and examined this patient.: Yes I have fully participated in the care of the patient.: Yes I have reviewed all pertinent clinical information, including history, physical exam and plan: Yes Notes (Text): 12/26/17 15:27 Patient seen and examined during rapid response. Patient is still the CAT scan area. Patient came down for CT head. While transferring from bed [address] scan patient became dizzy and diaphoretic. Patient was immediately placed back on stretcher. Blood pressure is 121/70. Heart rate is 78. EKG showed no acute ST-T changes. Patient is looking pale. Stat hemoglobin ordered. Patient is admitted for GI bleed; patient was taking aspirin, Plavix and Motrin at home. Patient will be transferred to ICU. Transfusion ordered. GI Dr. Bridges by the bedside during rapid response. plan for endoscopy tomorrow. Case endorsed to ICU attending. Case discussed with patient's in detail by the bedside.
[2017-12-25] MEDS ORDERED: Magnesium Sulfate 1 gm in D5W 1 GM/100 ML BAG IVPB ONE ×2 (20:23→20:31)
[2017-12-25 21:04] LABS: BASO # 0.01 K/mm3 (0.0-2.0); BASO % 0.1 % (0.0-3.0); GRAN # 9.13 (1.4-6.5); GRAN % 89.6 % (50.0-68.0); LYMPH # 0.8 (1.2-3.4); LYMPH % 7.4 % (22.0-35.0); MEAN CELL VOLUME 90.9 fl (80.0-105.0); MEAN CORPUSCULAR HEMOGLOBIN 31.3 pg (25.0-35.0); MEAN CORPUSCULAR HGB CONC 34.5 g/dl (31.0-37.0); MEAN PLATELET VOLUME 9.9 fl (7.0-11.0); MONO # 0.3 (0.1-0.6); MONO % 2.9 % (1.0-6.0); RBC 3.19 10^6/uL (3.5-6.1); RED CELL DISTRIBUTION WIDTH 12.2 % (11.5-14.5); WHITE BLOOD COUNT 10.2 10^3/ul (4.5-11.0)
[2017-12-25 21:28] LABS: TROPONIN I 0.02 ng/mL
--- NOTE | 2017-12-25 22:07 | CARD ---
APPROVED REPORT Date of service: 12/25/2017 EKG Measurement Heart [id number] <Conclusion> Sinus tachycardia Inferior infarct, age undetermined Abnormal ECG
[2017-12-25] MEDS: Sodium Chloride 0.9% 1,000 ML IV SCH (22:30)
[2017-12-25 22:51] LABS: BLOOD UREA NITROGEN 60 mg/dL (7-21); CALCIUM 8.6 mg/dL (8.4-10.5); GFR NON-AFRICAN AMERICAN > 60
[2017-12-25] MEDS ORDERED: Influenza Vaccine 60 mcg/0.5 mL SYR (4YR UP) IM ONE (23:41)
[2017-12-25] MEDS ORDERED: Pneumococcal 23-Valent Vaccine IM ONE (23:41)
--- NOTE | 2017-12-26 02:06 | CON ---
DATE: 12/25/2017 The patient in ICU 128, bed 4. REASON FOR CONSULTATION: Coronary artery disease, history of stent insertion, GI bleeding, hypertension. HISTORY OF PRESENT ILLNESS: The patient is a 67-year-old male, known to have coronary artery disease. He had an acute STEMI on 01/30/2015, and he was found to have multivessel disease. He had stent put in in LAD, RCA, and RPDA. At that time, ejection fraction was 35% because of acute DC. The patient is a known case of colonic polyps, BPH, hypertension, presented to emergency room with a history that he had a large amount of black stools at home and when he got out of bathroom, he felt weak and dizzy and sat down on the sofa. Denied any chest pain, shortness of breath, palpitation. The patient also had diaphoresis at that time. Following that, large black stool bowel movement, the patient had another one small amount bowel movement. The patient felt nauseous, but denies any chest pain or shortness of breath, palpitation. Denies any vomiting of blood. Patient also felt dizzy after large Black stool Bowel Movement. PAST MEDICAL HISTORY: The patient's past history positive for coronary artery disease and stent insertion as above, diverticulosis, internal hemorrhoids, colonic polyps, BPH, hypertension. The patient states that many years ago, he was told to have an ulcer. SOCIAL HISTORY: Denies smoking, denies drinking. ALLERGIES: PATIENT DENIES ANY ALLERGIES. MEDICATIONS: The patient's home medications were metoprolol 25 b.i.d., Lipitor 40 daily, losartan HCl 100/25 mg p.o. daily. The patient also has been taking Motrin along with Plavix and aspirin. REVIEW OF SYSTEMS: All the systems reviewed, positive mentioned in history, others were negative. PHYSICAL EXAMINATION: VITAL SIGNS: Blood pressure is 104/68, pulse is 91, temperature 98.1. HEENT: Head is normocephalic. Eyes, pupils normal. Conjunctivae slightly pale. NECK: JVP low. Carotids equal. THORAX: AP diameter normal. CARDIOPULMONARY: S1, S2. LUNGS: Clear. ABDOMEN: Soft. No tenderness. No organomegaly. EXTREMITIES: No edema, no clubbing, no cyanosis. LABORATORY DATA: WBC 9.4, hemoglobin 11.7, hematocrit 34.2, platelet 206,000. Sodium 135, potassium 5.4, BUN 58, creatinine 0.9. Random glucose 186. AST 57, ALT 65. Troponin less than 0.01. Total protein 6.4, albumin 3.8. Chest x-ray, no active disease. EKG showed regular sinus rhythm, old inferior wall DC as compared to old EKG. T waves inverted on the previous EKGs are now upright. ASSESSMENT: Acute upper gastrointestinal bleeding, rule out peptic ulcer disease; coronary artery disease; history of stents insertion; benign prostatic hypertrophy; history of colonic diverticulosis; history of colonic polyps; dizziness, probably on the basis of gastrointestinal bleeding; history of benign prostatic hypertrophy; internal hemorrhoids. Dizzyness after Bloody Bowel Movement is due to G.I.Blood Loss. PLAN: To follow up CBC and cross match blood, keep on hand. The patient already receiving Protonix 40 IV, stat was given. The patient is getting IV fluid therapy and we will follow the BUN, elevated, probably on the basis of GI bleeding. We will follow repeat electrolytes and CBC. The patient may need blood transfusions. Already spoke to Dr. Noyola to evaluate the patient. We will continue present therapy and monitor the patient closely at this point. If the patient needs endoscopy or colonoscopy, from cardiac point of view, the patient can go for it, it has a moderate risk. As soon as the patient's condition is stable, we will put back on beta-chavez 25 b.i.d., but right now, if the patient continued to bleed, if he became hypotensive, so we will hold off metoprolol at this moment for the time being. Already aspirin and Plavix is on hold. Sizzyness after large Bloody Stool is related to G.I.Blood Loss. Ankita Cordero MD [facility] CENTERMillie
[2017-12-26 02:49] LABS: HEMOGLOBIN 10.3 g/dL (14.0-18.0); MEAN CELL VOLUME 88.2 fl (80.0-105.0); MEAN CORPUSCULAR HEMOGLOBIN 30.5 pg (25.0-35.0); MEAN CORPUSCULAR HGB CONC 34.6 g/dl (31.0-37.0); MEAN PLATELET VOLUME 9.4 fl (7.0-11.0); RBC 3.38 10^6/uL (3.5-6.1); RED CELL DISTRIBUTION WIDTH 13.5 % (11.5-14.5); WHITE BLOOD COUNT 7.9 10^3/ul (4.5-11.0)
[2017-12-26 03:16] LABS: TROPONIN I 0.02 ng/mL
[2017-12-26 03:27] LABS: ALB/GLOB RATIO 1.3 (1.1-1.8); ALBUMIN 3.2 g/dL (3.0-4.8); ALT/SGPT 54 U/L (7-56); AST/SGOT 38 U/L (17-59); BLOOD UREA NITROGEN 55 mg/dL (7-21); CALCIUM 8.3 mg/dL (8.4-10.5); GFR NON-AFRICAN AMERICAN > 60
[2017-12-26] MEDS: Pantoprazole 40mg/100mL NS 40 MG/100 ML BAG IVPB SCH ×2 (03:29→05:46)
--- NOTE | 2017-12-26 08:01 | CP.CCUPN ---
<Nigel Galvan - Last Filed: 12/26/17 08:23> CCU Subjective - Physician Review Subjective (Free Text): Nigel Galvan CCU Progress Note for Dr. Clayton Patient seen and examined at bedside. Patient is sitting at bedside and not in acute distress. Patient does not look pale and is stating well on 3L of NC. Patient reports black, loose stool and dizziness yesterday. Today, patient denies dizziness, fever, headache, chest pain, heart palpitations, shortness of breath, cough, wheezing, nausea, vomiting, constipation, diarrhea, dysuria, hematuria, numbness/tingling. 12-ROS was unremarkable except for what was mentioned above. CCU Objective - Vital Signs / Intake & Output Vital Signs (Last 4 hours): Vital Signs Temp Pulse Resp BP Pulse Ox 12/26/17 07:02 99.2 F 12/26/17 06:45 73 17 100 12/26/17 06:30 73 17 100 12/26/17 06:15 73 17 100 12/26/17 06:03 71 12/26/17 06:00 99.5 F 76 20 103/59 L 100 12/26/17 05:53 72 7 L 100 Intake and Output (Last 8hrs): Intake & Output 12/25/17 12/26/17 12/26/17 22:59 06:59 14:59 Intake Total 0 1615 Output Total 1650 Balance 0 -35 Weight 175 lb Intake: IV 915 Left Antecubital 915 Blood Product 0 650 Red Blood Cells Cpd As1 0 325 Lr Unit [id number] Other 50 Red Blood Cells Cpd As1 50 Lr Unit [id number] Output: Urine 1650 Urine, Voided 1650 Stool 0 Emesis 0 Other: Voiding Method Urinal - Physical Exam Head: Positive for: Atraumatic, Normocephalic Pupils: Positive for: PERRL Extroacular Muscles: Positive for: EOMI Conjunctiva: Positive for: Normal Mouth: Positive for: Moist Mucous Membranes Neck: Positive for: Normal Range of Motion Respiratory/Chest: Positive for: Clear to Auscultation, Good Air Exchange. Negative for: Respiratory Distress, Accessory Muscle Use Cardiovascular: Positive for: Regular Rate and Rhythm, Normal S1, S2. Negative for: Murmurs Abdomen: Negative for: Tenderness, Distention, Peritoneal Signs Back: Positive for: Normal Inspection Upper Extremity: Positive for: Normal Inspection. Negative for: Cyanosis, Edema Lower Extremity: Positive for: Normal Inspection. Negative for: Edema Neurological: Positive for: GCS=15, CN II-XII Intact, Speech Normal Skin: Positive for: Warm, Dry, Normal Color. Negative for: Rashes Psychiatric: Positive for: Alert, Oriented x 3, Normal Insight, Normal Concentration - Medications Active Medications: Active Medications Generic Name Dose Route Start Last Admin Trade Name Freq PRN Reason Stop Dose Admin Pantoprazole Sodium 40 mg in 100 mls @ 20 mls/hr 12/25/17 14:45 12/26/17 05:46 Protonix 40mg Ivpb IVPB 20 mls/hr .Q5H ISA Administration Sodium Chloride 1,000 mls @ 60 mls/hr 12/25/17 21:45 12/25/17 22:30 Sodium Chloride 0.9% IV 60 mls/hr .[id number] ISA Administration Metoprolol Tartrate 12.5 mg 12/26/17 07:39 Lopressor PO BID ISA - Patient Studies Lab Studies: Lab Studies 12/26/17 12/26/17 12/25/17 Range/Units 02:04 02:04 21:01 WBC 7.9 D (4.5-11.0) 10^3/ul RBC 3.38 L (3.5-6.1) 10^6/uL Hgb 10.3 L (14.0-18.0) g/dL Hct 29.8 L (42.0-52.0) % MCV 88.2 (80.0-105.0) fl MCH 30.5 (25.0-35.0) pg MCHC 34.6 (31.0-37.0) g/dl RDW 13.5 (11.5-14.5) % Plt Count 160 (120.0-450.0) 10^3/uL MPV 9.4 (7.0-11.0) fl Gran % (50.0-68.0) % Lymph % (Auto) (22.0-35.0) % [place] % (Auto) (1.0-6.0) % Eos % (Auto) (1.5-5.0) % Baso % (Auto) (0.0-3.0) % Gran # (1.4-6.5) Lymph # (Auto) (1.2-3.4) [place] # (Auto) (0.1-0.6) Eos # (Auto) (0.0-0.7) Baso # (Auto) (0.0-2.0) K/mm3 PT (9.4-12.5) SECONDS INR APTT (25.1-36.5) Seconds Sodium 135 135 (132-148) mmol/L Potassium 3.9 4.7 (3.6-5.0) mmol/L Chloride 103 101 (98-107) mmol/L Carbon Dioxide 26 26 (21-33) mmol/L Anion Gap 10 13 (10-20) BUN 55 H 60 H (7-21) mg/dL Creatinine 0.9 0.9 (0.8-1.5) mg/dl Est GFR ( Amer) > 60 > 60 Est GFR (Non-Af Amer) > 60 > 60 Random Glucose 133 H 167 H (70-110) mg/dL Calcium 8.3 L 8.6 (8.4-10.5) mg/dL Phosphorus 4.0 (2.5-4.5) mg/dL Magnesium 2.1 (1.7-2.2) mg/dL Total Bilirubin 1.0 (0.2-1.3) mg/dL AST 38 (17-59) U/L ALT 54 (7-56) U/L Alkaline Phosphatase 44 (38-126) U/L Lactate Dehydrogenase 331 L (333-699) U/L Total Creatine Kinase 181 (35-230) U/L CK-MB (CK-2) (0.0-3.6) ng/mL CK-MB (CK-2) % Troponin I 0.02 ng/mL Total Protein 5.7 L (5.8-8.3) g/dL Albumin 3.2 (3.0-4.8) g/dL Globulin 2.5 gm/dL Albumin/Globulin Ratio 1.3 (1.1-1.8) Triglycerides (35-160) mg/dL Cholesterol (130-200) mg/dL LDL Cholesterol Direct (0-129) mg/dL HDL Cholesterol (29-60) mg/dL Lipase (23-300) U/L TSH 3rd Generation (0.46-4.68) mIU/mL Urine Color (YELLOW) Urine Appearance (CLEAR) Urine pH (4.7-8.0) Ur Specific [place] (1.005-1.035) Urine Protein (<30 mg/dL) mg/dL Urine Glucose (UA) (NEGATIVE) mg/dL Urine Ketones (NEGATIVE) mg/dL Urine Blood (NEGATIVE) Urine Nitrate (NEGATIVE) Urine Bilirubin (NEGATIVE) Urine Urobilinogen (<1 E.U./dL) E.U./dL Ur Leukocyte Esterase (NEGATIVE) Gregory/uL Blood Type Blood Type Confirm Antibody Screen Crossmatch BBK History Checked 12/25/17 12/25/17 12/25/17 Range/Units 21:01 21:01 21:01 WBC 10.2 (4.5-11.0) 10^3/ul RBC 3.19 L (3.5-6.1) 10^6/uL Hgb 10.0 L (14.0-18.0) g/dL Hct 29.0 L (42.0-52.0) % MCV 90.9 (80.0-105.0) fl MCH 31.3 (25.0-35.0) pg MCHC 34.5 (31.0-37.0) g/dl RDW 12.2 (11.5-14.5) % Plt Count 193 (120.0-450.0) 10^3/uL MPV 9.9 (7.0-11.0) fl Gran % 89.6 H (50.0-68.0) % Lymph % (Auto) 7.4 L (22.0-35.0) % [place] % (Auto) 2.9 (1.0-6.0) % Eos % (Auto) 0.0 L (1.5-5.0) % Baso % (Auto) 0.1 (0.0-3.0) % Gran # 9.13 H (1.4-6.5) Lymph # (Auto) 0.8 L (1.2-3.4) [place] # (Auto) 0.3 (0.1-0.6) Eos # (Auto) 0.0 (0.0-0.7) Baso # (Auto) 0.01 (0.0-2.0) K/mm3 PT (9.4-12.5) SECONDS INR APTT (25.1-36.5) Seconds Sodium (132-148) mmol/L Potassium (3.6-5.0) mmol/L Chloride (98-107) mmol/L Carbon Dioxide (21-33) mmol/L Anion Gap (10-20) BUN (7-21) mg/dL Creatinine (0.8-1.5) mg/dl Est GFR ( Amer) Est GFR (Non-Af Amer) Random Glucose (70-110) mg/dL Calcium (8.4-10.5) mg/dL Phosphorus (2.5-4.5) mg/dL Magnesium (1.7-2.2) mg/dL Total Bilirubin (0.2-1.3) mg/dL AST (17-59) U/L ALT (7-56) U/L Alkaline Phosphatase (38-126) U/L Lactate Dehydrogenase 349 (333-699) U/L Total Creatine Kinase 225 (35-230) U/L CK-MB (CK-2) (0.0-3.6) ng/mL CK-MB (CK-2) % Troponin I 0.02 D ng/mL Total Protein (5.8-8.3) g/dL Albumin (3.0-4.8) g/dL Globulin gm/dL Albumin/Globulin Ratio (1.1-1.8) Triglycerides 126 (35-160) mg/dL Cholesterol 99 L (130-200) mg/dL LDL Cholesterol Direct 54 (0-129) mg/dL HDL Cholesterol 38 (29-60) mg/dL Lipase (23-300) U/L TSH 3rd Generation 0.40 L (0.46-4.68) mIU/mL Urine Color (YELLOW) Urine Appearance (CLEAR) Urine pH (4.7-8.0) Ur Specific [place] (1.005-1.035) Urine Protein (<30 mg/dL) mg/dL Urine Glucose (UA) (NEGATIVE) mg/dL Urine Ketones (NEGATIVE) mg/dL Urine Blood (NEGATIVE) Urine Nitrate (NEGATIVE) Urine Bilirubin (NEGATIVE) Urine Urobilinogen (<1 E.U./dL) E.U./dL Ur Leukocyte Esterase (NEGATIVE) Gregory/uL Blood Type Blood Type Confirm Antibody Screen Crossmatch BBK History Checked 12/25/17 12/25/17 12/25/17 Range/Units 18:00 17:00 15:53 WBC (4.5-11.0) 10^3/ul RBC (3.5-6.1) 10^6/uL Hgb (14.0-18.0) g/dL Hct (42.0-52.0) % MCV (80.0-105.0) fl MCH (25.0-35.0) pg MCHC (31.0-37.0) g/dl RDW (11.5-14.5) % Plt Count (120.0-450.0) 10^3/uL MPV (7.0-11.0) fl Gran % (50.0-68.0) % Lymph % (Auto) (22.0-35.0) % [place] % (Auto) (1.0-6.0) % Eos % (Auto) (1.5-5.0) % Baso % (Auto) (0.0-3.0) % Gran # (1.4-6.5) Lymph # (Auto) (1.2-3.4) [place] # (Auto) (0.1-0.6) Eos # (Auto) (0.0-0.7) Baso # (Auto) (0.0-2.0) K/mm3 PT (9.4-12.5) SECONDS INR APTT (25.1-36.5) Seconds Sodium (132-148) mmol/L Potassium (3.6-5.0) mmol/L Chloride (98-107) mmol/L Carbon Dioxide (21-33) mmol/L Anion Gap (10-20) BUN (7-21) mg/dL Creatinine (0.8-1.5) mg/dl Est GFR ( Amer) Est GFR (Non-Af Amer) Random Glucose (70-110) mg/dL Calcium (8.4-10.5) mg/dL Phosphorus (2.5-4.5) mg/dL Magnesium (1.7-2.2) mg/dL Total Bilirubin (0.2-1.3) mg/dL AST (17-59) U/L ALT (7-56) U/L Alkaline Phosphatase (38-126) U/L Lactate Dehydrogenase (333-699) U/L Total Creatine Kinase (35-230) U/L CK-MB (CK-2) (0.0-3.6) ng/mL CK-MB (CK-2) % Troponin I ng/mL Total Protein (5.8-8.3) g/dL Albumin (3.0-4.8) g/dL Globulin gm/dL Albumin/Globulin Ratio (1.1-1.8) Triglycerides (35-160) mg/dL Cholesterol (130-200) mg/dL LDL Cholesterol Direct (0-129) mg/dL HDL Cholesterol (29-60) mg/dL Lipase (23-300) U/L TSH 3rd Generation (0.46-4.68) mIU/mL Urine Color yellow (YELLOW) Urine Appearance Clear (CLEAR) Urine pH 6.0 (4.7-8.0) Ur Specific [place] 1.020 (1.005-1.035) Urine Protein Negative (<30 mg/dL) mg/dL Urine Glucose (UA) Negative (NEGATIVE) mg/dL Urine Ketones 15 H (NEGATIVE) mg/dL Urine Blood Negative (NEGATIVE) Urine Nitrate Negative (NEGATIVE) Urine Bilirubin Negative (NEGATIVE) Urine Urobilinogen 0.2 (<1 E.U./dL) E.U./dL Ur Leukocyte Esterase Negative (NEGATIVE) Gregory/uL Blood Type A NEGATIVE Blood Type Confirm A NEGATIVE Antibody Screen Negative Crossmatch See Detail BBK History Checked No verified bt 12/25/17 12/25/17 12/25/17 Range/Units 15:53 15:53 15:53 WBC 9.4 D (4.5-11.0) 10^3/ul RBC 3.74 (3.5-6.1) 10^6/uL Hgb 11.7 L (14.0-18.0) g/dL Hct 34.2 L (42.0-52.0) % MCV 91.4 (80.0-105.0) fl MCH 31.3 (25.0-35.0) pg MCHC 34.2 (31.0-37.0) g/dl RDW 12.1 (11.5-14.5) % Plt Count 206 (120.0-450.0) 10^3/uL MPV 10.4 (7.0-11.0) fl Gran % 85.6 H (50.0-68.0) % Lymph % (Auto) 11.2 L (22.0-35.0) % [place] % (Auto) 2.6 (1.0-6.0) % Eos % (Auto) 0.3 L (1.5-5.0) % Baso % (Auto) 0.3 (0.0-3.0) % Gran # 8.01 H (1.4-6.5) Lymph # (Auto) 1.1 L (1.2-3.4) [place] # (Auto) 0.2 (0.1-0.6) Eos # (Auto) 0.0 (0.0-0.7) Baso # (Auto) 0.03 (0.0-2.0) K/mm3 PT 12.7 H (9.4-12.5) SECONDS INR 1.11 APTT 24.9 L (25.1-36.5) Seconds Sodium 135 (132-148) mmol/L Potassium 5.4 H (3.6-5.0) mmol/L Chloride 98 (98-107) mmol/L Carbon Dioxide 27 (21-33) mmol/L Anion Gap 16 (10-20) BUN 58 H (7-21) mg/dL Creatinine 0.9 (0.8-1.5) mg/dl Est GFR ( Amer) > 60 Est GFR (Non-Af Amer) > 60 Random Glucose 186 H (70-110) mg/dL Calcium 9.1 (8.4-10.5) mg/dL Phosphorus (2.5-4.5) mg/dL Magnesium 1.6 L (1.7-2.2) mg/dL Total Bilirubin 0.7 (0.2-1.3) mg/dL AST 57 (17-59) U/L ALT 65 H (7-56) U/L Alkaline Phosphatase 51 (38-126) U/L Lactate Dehydrogenase 449 (333-699) U/L Total Creatine Kinase 326 H (35-230) U/L CK-MB (CK-2) 3.1 (0.0-3.6) ng/mL CK-MB (CK-2) % Cancelled Troponin I < 0.01 D ng/mL Total Protein 6.4 (5.8-8.3) g/dL Albumin 3.8 (3.0-4.8) g/dL Globulin 2.6 gm/dL Albumin/Globulin Ratio 1.5 (1.1-1.8) Triglycerides (35-160) mg/dL Cholesterol (130-200) mg/dL LDL Cholesterol Direct (0-129) mg/dL HDL Cholesterol (29-60) mg/dL Lipase 75 (23-300) U/L TSH 3rd Generation (0.46-4.68) mIU/mL Urine Color (YELLOW) Urine Appearance (CLEAR) Urine pH (4.7-8.0) Ur Specific [place] (1.005-1.035) Urine Protein (<30 mg/dL) mg/dL Urine Glucose (UA) (NEGATIVE) mg/dL Urine Ketones (NEGATIVE) mg/dL Urine Blood (NEGATIVE) Urine Nitrate (NEGATIVE) Urine Bilirubin (NEGATIVE) Urine Urobilinogen (<1 E.U./dL) E.U./dL Ur Leukocyte Esterase (NEGATIVE) Gregory/uL Blood Type Blood Type Confirm Antibody Screen Crossmatch BBK History Checked Laboratory Results - last 24 hr 12/25/17 12/25/17 12/25/17 15:53 15:53 15:53 WBC 9.4 D RBC 3.74 Hgb 11.7 L Hct 34.2 L MCV 91.4 MCH 31.3 MCHC 34.2 RDW 12.1 Plt Count 206 MPV 10.4 Gran % 85.6 H Lymph % (Auto) 11.2 L [place] % (Auto) 2.6 Eos % (Auto) 0.3 L Baso % (Auto) 0.3 Gran # 8.01 H Lymph # (Auto) 1.1 L [place] # (Auto) 0.2 Eos # (Auto) 0.0 Baso # (Auto) 0.03 PT 12.7 H INR 1.11 APTT 24.9 L Sodium 135 Potassium 5.4 H Chloride 98 Carbon Dioxide 27 Anion Gap 16 BUN 58 H Creatinine 0.9 Est GFR ( Amer) > 60 Est GFR (Non-Af Amer) > 60 Random Glucose 186 H Calcium 9.1 Phosphorus Magnesium 1.6 L Total Bilirubin 0.7 AST 57 ALT 65 H Alkaline Phosphatase 51 Lactate Dehydrogenase 449 Total Creatine Kinase 326 H CK-MB (CK-2) 3.1 CK-MB (CK-2) % Cancelled Troponin I < 0.01 D Total Protein 6.4 Albumin 3.8 Globulin 2.6 Albumin/Globulin Ratio 1.5 Triglycerides Cholesterol LDL Cholesterol Direct HDL Cholesterol Lipase 75 TSH 3rd Generation Urine Color Urine Appearance Urine pH Ur Specific [place] Urine Protein Urine Glucose (UA) Urine Ketones Urine Blood Urine Nitrate Urine Bilirubin Urine Urobilinogen Ur Leukocyte Esterase Blood Type Blood Type Confirm Antibody Screen Crossmatch BBK History Checked 12/25/17 12/25/17 12/25/17 15:53 17:00 18:00 WBC RBC Hgb Hct MCV MCH MCHC RDW Plt Count MPV Gran % Lymph % (Auto) [place] % (Auto) Eos % (Auto) Baso % (Auto) Gran # Lymph # (Auto) [place] # (Auto) Eos # (Auto) Baso # (Auto) PT INR APTT Sodium Potassium Chloride Carbon Dioxide Anion Gap BUN Creatinine Est GFR ( Amer) Est GFR (Non-Af Amer) Random Glucose Calcium Phosphorus Magnesium Total Bilirubin AST ALT Alkaline Phosphatase Lactate Dehydrogenase Total Creatine Kinase CK-MB (CK-2) CK-MB (CK-2) % Troponin I Total Protein Albumin Globulin Albumin/Globulin Ratio Triglycerides Cholesterol LDL Cholesterol Direct HDL Cholesterol Lipase TSH 3rd Generation Urine Color yellow Urine Appearance Clear Urine pH 6.0 Ur Specific [place] 1.020 Urine Protein Negative Urine Glucose (UA) Negative Urine Ketones 15 H Urine Blood Negative Urine Nitrate Negative Urine Bilirubin Negative Urine Urobilinogen 0.2 Ur Leukocyte Esterase Negative Blood Type A NEGATIVE Blood Type Confirm A NEGATIVE Antibody Screen Negative Crossmatch See Detail BBK History Checked No verified bt 12/25/17 12/25/17 12/25/17 21:01 21:01 21:01 WBC 10.2 RBC 3.19 L Hgb 10.0 L Hct 29.0 L MCV 90.9 MCH 31.3 MCHC 34.5 RDW 12.2 Plt Count 193 MPV 9.9 Gran % 89.6 H Lymph % (Auto) 7.4 L [place] % (Auto) 2.9 Eos % (Auto) 0.0 L Baso % (Auto) 0.1 Gran # 9.13 H Lymph # (Auto) 0.8 L [place] # (Auto) 0.3 Eos # (Auto) 0.0 Baso # (Auto) 0.01 PT INR APTT Sodium Potassium Chloride Carbon Dioxide Anion Gap BUN Creatinine Est GFR ( Amer) Est GFR (Non-Af Amer) Random Glucose Calcium Phosphorus Magnesium Total Bilirubin AST ALT Alkaline Phosphatase Lactate Dehydrogenase 349 Total Creatine Kinase 225 CK-MB (CK-2) CK-MB (CK-2) % Troponin I 0.02 D Total Protein Albumin Globulin Albumin/Globulin Ratio Triglycerides 126 Cholesterol 99 L LDL Cholesterol Direct 54 HDL Cholesterol 38 Lipase TSH 3rd Generation 0.40 L Urine Color Urine Appearance Urine pH Ur Specific [place] Urine Protein Urine Glucose (UA) Urine Ketones Urine Blood Urine Nitrate Urine Bilirubin Urine Urobilinogen Ur Leukocyte Esterase Blood Type Blood Type Confirm Antibody Screen Crossmatch BBK History Checked 12/25/17 12/26/17 12/26/17 21:01 02:04 02:04 WBC 7.9 D RBC 3.38 L Hgb 10.3 L Hct 29.8 L MCV 88.2 MCH 30.5 MCHC 34.6 RDW 13.5 Plt Count 160 MPV 9.4 Gran % Lymph % (Auto) [place] % (Auto) Eos % (Auto) Baso % (Auto) Gran # Lymph # (Auto) [place] # (Auto) Eos # (Auto) Baso # (Auto) PT INR APTT Sodium 135 135 Potassium 4.7 3.9 Chloride 101 103 Carbon Dioxide 26 26 Anion Gap 13 10 BUN 60 H 55 H Creatinine 0.9 0.9 Est GFR ( Amer) > 60 > 60 Est GFR (Non-Af Amer) > 60 > 60 Random Glucose 167 H 133 H Calcium 8.6 8.3 L Phosphorus 4.0 Magnesium 2.1 Total Bilirubin 1.0 AST 38 ALT 54 Alkaline Phosphatase 44 Lactate Dehydrogenase 331 L Total Creatine Kinase 181 CK-MB (CK-2) CK-MB (CK-2) % Troponin I 0.02 Total Protein 5.7 L Albumin 3.2 Globulin 2.5 Albumin/Globulin Ratio 1.3 Triglycerides Cholesterol LDL Cholesterol Direct HDL Cholesterol Lipase TSH 3rd Generation Urine Color Urine Appearance Urine pH Ur Specific [place] Urine Protein Urine Glucose (UA) Urine Ketones Urine Blood Urine Nitrate Urine Bilirubin Urine Urobilinogen Ur Leukocyte Esterase Blood Type Blood Type Confirm Antibody Screen Crossmatch BBK History Checked EKG/Cardiology Studies: Cardiology / EKG Studies 12/25/17 14:38 ELECTROCARDIOGRAM Stat Comment: Reason For Exam: abd pain 12/25/17 19:05 EKG [ELECTROCARDIOGRAM] Stat Comment: 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, 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, 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 Fingerstick Blood Sugar Results: 133 Review of Systems - Constitutional Constitutional: absent: Fever, Chills, Sweats - EENT Eyes: absent: Blurred Vision Ears: absent: Decreased Hearing Nose/Mouth/Throat: absent: Sore Throat - Cardiovascular Cardiovascular: absent: Chest Pain, Diaphoresis, Dyspnea - Respiratory Respiratory: absent: Cough, Dyspnea, Hemoptysis, Wheezing - Gastrointestinal Gastrointestinal: absent: Abdominal Pain, Constipation, Diarrhea, Nausea, Vomiting - Genitourinary Genitourinary: absent: Dysuria, Hematuria - Musculoskeletal Musculoskeletal: absent: Arthralgias, Back Pain - Neurological Neurological: Syncope (2 times yesterday). absent: Numbness, Headaches, Tingling, Tremor Critical Care Progress Note - Ventilator Checklist Head of Bed 30 Degrees: Yes PUD Prophalyxis: Yes DVT Prophylaxis: Yes - Nutrition Nutrition: Nutrition Category Date Time Status NPO Diet [DIET] Diets 12/25/17 Dinner Ordered Assessment/Plan - Assessment and Plan (Free Text) Assessment: 67 year old male with past medical history of CAD, STEMI with PTCA with DESx3 in 2015, ASA/plavix, divertiulosis, internal hemorrhoids, colonic polyps, BPH, HTN presents wit h dizziness, lightheadedness and 3 black, loose stools. Patient lost consciousness twice yesterday, was found to have guaiac positive stool, and had an episode of dizziness and LOC when he was able to go for a CT scan Plan: Neuro: -AAOx3, no FND, moving extremities past midline. -Monitor neuro status. -Reorient patient as necessary. Cardio: -RRR, borderline hypotensive at 99/63, no signs of HD compromise -EKG: sinus tachycardia at HR: 105 -Last echocardiogram in 2014: LVEF: 55.6% -Lopressor 12.5 mg BID held due to patient's low blood pressure. -As per cardiology, patient is moderate risk for endoscopy procedure today but is stable for procedure. -Maintain MAP>65. -Monitor for S/S, HD compromise. Pulm: -No signs of respiratory distress. CTA B/L -Patient is stating well on 3L of NC. -Maintain O2 saturation>95%. -CXR: no active disease -Elevate bed to 30 degrees GI: -NPO prior to endoscopy procedure today. -Patient has had an elevated BUN/Cr ratio throughout admission, admitted to 3 episodes of black loose stools, and was guiaic positive. Patient reports last taking NSAID on Friday. Patient had one U of PRBCs last nightPatient is currently asymptomatic. Patient is anemic at 10.3, but this may be falsely elevated due to patient's fluid status. Patients Hgb improved to 10.3 from 10.0 after the 1 U of PRBCs last night. -Patient will have upper endoscopy today to evaluate for suspected upper GI bleed with appropriate intervention. Patient's aspirin and plavix has been held. -Protonix drip at 20 cc/hr -Last colonoscopy in 01/2017 showed 1 5 mm tubular adenoma in descending colon, 1 hyperplastic polyp in ascending colon, 1 8 mm sigmoid diverticula, and internal hemorrhoids. /Nephro: -BUN/Cr ratio elevated at 55/0.9 likely 2/2 to hypovolemia vs. upper GI bleed. -NS at 60 cc/hr -UA: 15 ketones, negative nitrates, negative leukocyte esterase -Increased urine output overnight. -Continue monitoring. -Replete electrolytes as needed. -Maintain euvolemia. Endocrinology: -Random glucose: 133 -Maintain euglycemia. Heme/Onc: -H/H is 10.3/29.8. Patient's hemoglobin increased from 10 to 10.3 post 1 U of PRBCs yesterday. -3 more units of PRBCs ready for transfusion if patient is symptomatic for anemia or if Hgb<8 due to patient's cardiac status. -1 U of platelet pharesis on standby if needed for prior or post endoscopy today. -No signs of HD compromise. -Continue monitoring H/H ID: -Afebrile, no leukocytosis -Monitor for signs and symptoms of infection. DVT prophylaxis: SCD GI prophylaxis: protonix drip at 20 cc/hr Patient seen and examined with Dr. Clayton. - Date & Time Date: 12/26/17 Time: 08:04 <Cinyd Clayton - Last Filed: 12/26/17 18:22> CCU Objective - Vital Signs / Intake & Output Vital Signs (Last 4 hours): Vital Signs Pulse Resp BP Pulse Ox 12/26/17 17:00 68 16 110/61 100 12/26/17 16:00 72 16 102/59 L 100 12/26/17 15:40 93 L 12/26/17 14:58 100 Intake and Output (Last 8hrs): Intake & Output 12/26/17 12/26/17 12/26/17 06:59 14:59 22:59 Intake Total 1615 Output Total 1650 Balance -35 Weight 79.379 kg Intake: IV 915 Left Antecubital 915 Blood Product 650 Red Blood Cells Cpd As1 325 Lr Unit [id number] Other 50 Red Blood Cells Cpd As1 50 Lr Unit [id number] Output: Urine 1650 Urine, Voided 1650 Stool 0 Emesis 0 Other: Voiding Method Urinal - Medications Active Medications: Active Medications Generic Name Dose Route Start Last Admin Trade Name Freq PRN Reason Stop Dose Admin Sodium Chloride 1,000 mls @ 60 mls/hr 12/25/17 21:45 12/26/17 11:46 Sodium Chloride 0.9% IV 60 mls/hr .[id number] ISA Administration Metoprolol Tartrate 12.5 mg 12/26/17 07:39 Lopressor PO BID ISA Pantoprazole Sodium 40 mg 12/26/17 22:00 Protonix Inj IVP Q12 ISA - Patient Studies Lab Studies: Lab Studies 12/26/17 12/26/17 12/26/17 Range/Units 16:11 13:10 11:46 WBC 6.1 D 8.4 (4.5-11.0) 10^3/ul RBC 2.93 L 3.30 L (3.5-6.1) 10^6/uL Hgb 8.9 L 10.0 L (14.0-18.0) g/dL Hct 25.9 L 29.1 L (42.0-52.0) % MCV 88.4 88.2 (80.0-105.0) fl MCH 30.4 30.3 (25.0-35.0) pg MCHC 34.4 34.4 (31.0-37.0) g/dl RDW 14.2 14.1 (11.5-14.5) % Plt Count 132 165 (120.0-450.0) 10^3/uL MPV 9.4 9.6 (7.0-11.0) fl Gran % (50.0-68.0) % Lymph % (Auto) (22.0-35.0) % [place] % (Auto) (1.0-6.0) % Eos % (Auto) (1.5-5.0) % Baso % (Auto) (0.0-3.0) % Gran # (1.4-6.5) Lymph # (Auto) (1.2-3.4) [place] # (Auto) (0.1-0.6) Eos # (Auto) (0.0-0.7) Baso # (Auto) (0.0-2.0) K/mm3 Sodium (132-148) mmol/L Potassium (3.6-5.0) mmol/L Chloride (98-107) mmol/L Carbon Dioxide (21-33) mmol/L Anion Gap (10-20) BUN (7-21) mg/dL Creatinine (0.8-1.5) mg/dl Est GFR ( Amer) Est GFR (Non-Af Amer) POC Glucose (mg/dL) 114 H (65-110) mg/dL Random Glucose (70-110) mg/dL Hemoglobin A1c (4.2-6.5) % Calcium (8.4-10.5) mg/dL Phosphorus (2.5-4.5) mg/dL Magnesium (1.7-2.2) mg/dL Total Bilirubin (0.2-1.3) mg/dL AST (17-59) U/L ALT (7-56) U/L Alkaline Phosphatase (38-126) U/L Lactate Dehydrogenase (333-699) U/L Total Creatine Kinase (35-230) U/L Troponin I ng/mL Total Protein (5.8-8.3) g/dL Albumin (3.0-4.8) g/dL Globulin gm/dL Albumin/Globulin Ratio (1.1-1.8) Triglycerides (35-160) mg/dL Cholesterol (130-200) mg/dL LDL Cholesterol Direct (0-129) mg/dL HDL Cholesterol (29-60) mg/dL TSH 3rd Generation (0.46-4.68) mIU/mL Blood Type Blood Type Confirm Antibody Screen Crossmatch BBK History Checked 12/26/17 12/26/17 12/26/17 Range/Units 08:15 02:04 02:04 WBC 7.6 7.9 D (4.5-11.0) 10^3/ul RBC 3.21 L 3.38 L (3.5-6.1) 10^6/uL Hgb 9.6 L 10.3 L (14.0-18.0) g/dL Hct 28.2 L 29.8 L (42.0-52.0) % MCV 87.9 88.2 (80.0-105.0) fl MCH 29.9 30.5 (25.0-35.0) pg MCHC 34.0 34.6 (31.0-37.0) g/dl RDW 13.8 13.5 (11.5-14.5) % Plt Count 152 160 (120.0-450.0) 10^3/uL MPV 9.5 9.4 (7.0-11.0) fl Gran % (50.0-68.0) % Lymph % (Auto) (22.0-35.0) % [place] % (Auto) (1.0-6.0) % Eos % (Auto) (1.5-5.0) % Baso % (Auto) (0.0-3.0) % Gran # (1.4-6.5) Lymph # (Auto) (1.2-3.4) [place] # (Auto) (0.1-0.6) Eos # (Auto) (0.0-0.7) Baso # (Auto) (0.0-2.0) K/mm3 Sodium 135 (132-148) mmol/L Potassium 3.9 (3.6-5.0) mmol/L Chloride 103 (98-107) mmol/L Carbon Dioxide 26 (21-33) mmol/L Anion Gap 10 (10-20) BUN 55 H (7-21) mg/dL Creatinine 0.9 (0.8-1.5) mg/dl Est GFR ( Amer) > 60 Est GFR (Non-Af Amer) > 60 POC Glucose (mg/dL) (65-110) mg/dL Random Glucose 133 H (70-110) mg/dL Hemoglobin A1c (4.2-6.5) % Calcium 8.3 L (8.4-10.5) mg/dL Phosphorus 4.0 (2.5-4.5) mg/dL Magnesium 2.1 (1.7-2.2) mg/dL Total Bilirubin 1.0 (0.2-1.3) mg/dL AST 38 (17-59) U/L ALT 54 (7-56) U/L Alkaline Phosphatase 44 (38-126) U/L Lactate Dehydrogenase 331 L (333-699) U/L Total Creatine Kinase 181 (35-230) U/L Troponin I 0.02 ng/mL Total Protein 5.7 L (5.8-8.3) g/dL Albumin 3.2 (3.0-4.8) g/dL Globulin 2.5 gm/dL Albumin/Globulin Ratio 1.3 (1.1-1.8) Triglycerides (35-160) mg/dL Cholesterol (130-200) mg/dL LDL Cholesterol Direct (0-129) mg/dL HDL Cholesterol (29-60) mg/dL TSH 3rd Generation (0.46-4.68) mIU/mL Blood Type Blood Type Confirm Antibody Screen Crossmatch BBK History Checked 12/25/17 12/25/17 12/25/17 Range/Units 21:01 21:01 21:01 WBC (4.5-11.0) 10^3/ul RBC (3.5-6.1) 10^6/uL Hgb (14.0-18.0) g/dL Hct (42.0-52.0) % MCV (80.0-105.0) fl MCH (25.0-35.0) pg MCHC (31.0-37.0) g/dl RDW (11.5-14.5) % Plt Count (120.0-450.0) 10^3/uL MPV (7.0-11.0) fl Gran % (50.0-68.0) % Lymph % (Auto) (22.0-35.0) % [place] % (Auto) (1.0-6.0) % Eos % (Auto) (1.5-5.0) % Baso % (Auto) (0.0-3.0) % Gran # (1.4-6.5) Lymph # (Auto) (1.2-3.4) [place] # (Auto) (0.1-0.6) Eos # (Auto) (0.0-0.7) Baso # (Auto) (0.0-2.0) K/mm3 Sodium 135 (132-148) mmol/L Potassium 4.7 (3.6-5.0) mmol/L Chloride 101 (98-107) mmol/L Carbon Dioxide 26 (21-33) mmol/L Anion Gap 13 (10-20) BUN 60 H (7-21) mg/dL Creatinine 0.9 (0.8-1.5) mg/dl Est GFR ( Amer) > 60 Est GFR (Non-Af Amer) > 60 POC Glucose (mg/dL) (65-110) mg/dL Random Glucose 167 H (70-110) mg/dL Hemoglobin A1c 5.6 (4.2-6.5) % Calcium 8.6 (8.4-10.5) mg/dL Phosphorus (2.5-4.5) mg/dL Magnesium (1.7-2.2) mg/dL Total Bilirubin (0.2-1.3) mg/dL AST (17-59) U/L ALT (7-56) U/L Alkaline Phosphatase (38-126) U/L Lactate Dehydrogenase (333-699) U/L Total Creatine Kinase (35-230) U/L Troponin I ng/mL Total Protein (5.8-8.3) g/dL Albumin (3.0-4.8) g/dL Globulin gm/dL Albumin/Globulin Ratio (1.1-1.8) Triglycerides (35-160) mg/dL Cholesterol (130-200) mg/dL LDL Cholesterol Direct (0-129) mg/dL HDL Cholesterol (29-60) mg/dL TSH 3rd Generation 0.40 L (0.46-4.68) mIU/mL Blood Type Blood Type Confirm Antibody Screen Crossmatch BBK History Checked 12/25/17 12/25/17 12/25/17 Range/Units 21:01 21:01 18:00 WBC 10.2 (4.5-11.0) 10^3/ul RBC 3.19 L (3.5-6.1) 10^6/uL Hgb 10.0 L (14.0-18.0) g/dL Hct 29.0 L (42.0-52.0) % MCV 90.9 (80.0-105.0) fl MCH 31.3 (25.0-35.0) pg MCHC 34.5 (31.0-37.0) g/dl RDW 12.2 (11.5-14.5) % Plt Count 193 (120.0-450.0) 10^3/uL MPV 9.9 (7.0-11.0) fl Gran % 89.6 H (50.0-68.0) % Lymph % (Auto) 7.4 L (22.0-35.0) % [place] % (Auto) 2.9 (1.0-6.0) % Eos % (Auto) 0.0 L (1.5-5.0) % Baso % (Auto) 0.1 (0.0-3.0) % Gran # 9.13 H (1.4-6.5) Lymph # (Auto) 0.8 L (1.2-3.4) [place] # (Auto) 0.3 (0.1-0.6) Eos # (Auto) 0.0 (0.0-0.7) Baso # (Auto) 0.01 (0.0-2.0) K/mm3 Sodium (132-148) mmol/L Potassium (3.6-5.0) mmol/L Chloride (98-107) mmol/L Carbon Dioxide (21-33) mmol/L Anion Gap (10-20) BUN (7-21) mg/dL Creatinine (0.8-1.5) mg/dl Est GFR ( Amer) Est GFR (Non-Af Amer) POC Glucose (mg/dL) (65-110) mg/dL Random Glucose (70-110) mg/dL Hemoglobin A1c (4.2-6.5) % Calcium (8.4-10.5) mg/dL Phosphorus (2.5-4.5) mg/dL Magnesium (1.7-2.2) mg/dL Total Bilirubin (0.2-1.3) mg/dL AST (17-59) U/L ALT (7-56) U/L Alkaline Phosphatase (38-126) U/L Lactate Dehydrogenase 349 (333-699) U/L Total Creatine Kinase 225 (35-230) U/L Troponin I 0.02 D ng/mL Total Protein (5.8-8.3) g/dL Albumin (3.0-4.8) g/dL Globulin gm/dL Albumin/Globulin Ratio (1.1-1.8) Triglycerides 126 (35-160) mg/dL Cholesterol 99 L (130-200) mg/dL LDL Cholesterol Direct 54 (0-129) mg/dL HDL Cholesterol 38 (29-60) mg/dL TSH 3rd Generation (0.46-4.68) mIU/mL Blood Type Blood Type Confirm A NEGATIVE Antibody Screen Crossmatch BBK History Checked 12/25/17 Range/Units 15:53 WBC (4.5-11.0) 10^3/ul RBC (3.5-6.1) 10^6/uL Hgb (14.0-18.0) g/dL Hct (42.0-52.0) % MCV (80.0-105.0) fl MCH (25.0-35.0) pg MCHC (31.0-37.0) g/dl RDW (11.5-14.5) % Plt Count (120.0-450.0) 10^3/uL MPV (7.0-11.0) fl Gran % (50.0-68.0) % Lymph % (Auto) (22.0-35.0) % [place] % (Auto) (1.0-6.0) % Eos % (Auto) (1.5-5.0) % Baso % (Auto) (0.0-3.0) % Gran # (1.4-6.5) Lymph # (Auto) (1.2-3.4) [place] # (Auto) (0.1-0.6) Eos # (Auto) (0.0-0.7) Baso # (Auto) (0.0-2.0) K/mm3 Sodium (132-148) mmol/L Potassium (3.6-5.0) mmol/L Chloride (98-107) mmol/L Carbon Dioxide (21-33) mmol/L Anion Gap (10-20) BUN (7-21) mg/dL Creatinine (0.8-1.5) mg/dl Est GFR ( Amer) Est GFR (Non-Af Amer) POC Glucose (mg/dL) (65-110) mg/dL Random Glucose (70-110) mg/dL Hemoglobin A1c (4.2-6.5) % Calcium (8.4-10.5) mg/dL Phosphorus (2.5-4.5) mg/dL Magnesium (1.7-2.2) mg/dL Total Bilirubin (0.2-1.3) mg/dL AST (17-59) U/L ALT (7-56) U/L Alkaline Phosphatase (38-126) U/L Lactate Dehydrogenase (333-699) U/L Total Creatine Kinase (35-230) U/L Troponin I ng/mL Total Protein (5.8-8.3) g/dL Albumin (3.0-4.8) g/dL Globulin gm/dL Albumin/Globulin Ratio (1.1-1.8) Triglycerides (35-160) mg/dL Cholesterol (130-200) mg/dL LDL Cholesterol Direct (0-129) mg/dL HDL Cholesterol (29-60) mg/dL TSH 3rd Generation (0.46-4.68) mIU/mL Blood Type A NEGATIVE Blood Type Confirm Antibody Screen Negative Crossmatch See Detail BBK History Checked No verified bt Laboratory Results - last 24 hr 12/25/17 12/25/17 12/25/17 15:53 18:00 21:01 WBC RBC Hgb Hct MCV MCH MCHC RDW Plt Count MPV Gran % Lymph % (Auto) [place] % (Auto) Eos % (Auto) Baso % (Auto) Gran # Lymph # (Auto) [place] # (Auto) Eos # (Auto) Baso # (Auto) Sodium Potassium Chloride Carbon Dioxide Anion Gap BUN Creatinine Est GFR ( Amer) Est GFR (Non-Af Amer) POC Glucose (mg/dL) Random Glucose Hemoglobin A1c Calcium Phosphorus Magnesium Total Bilirubin AST ALT Alkaline Phosphatase Lactate Dehydrogenase 349 Total Creatine Kinase 225 Troponin I 0.02 D Total Protein Albumin Globulin Albumin/Globulin Ratio Triglycerides 126 Cholesterol 99 L LDL Cholesterol Direct 54 HDL Cholesterol 38 TSH 3rd Generation Blood Type A NEGATIVE Blood Type Confirm A NEGATIVE Antibody Screen Negative Crossmatch See Detail BBK History Checked No verified bt 10/12/25/17 12/25/17 21:01 21:01 21:01 WBC 10.2 RBC 3.19 L Hgb 10.0 L Hct 29.0 L MCV 90.9 MCH 31.3 MCHC 34.5 RDW 12.2 Plt Count 193 MPV 9.9 Gran % 89.6 H Lymph % (Auto) 7.4 L [place] % (Auto) 2.9 Eos % (Auto) 0.0 L Baso % (Auto) 0.1 Gran # 9.13 H Lymph # (Auto) 0.8 L [place] # (Auto) 0.3 Eos # (Auto) 0.0 Baso # (Auto) 0.01 Sodium Potassium Chloride Carbon Dioxide Anion Gap BUN Creatinine Est GFR ( Amer) Est GFR (Non-Af Amer) POC Glucose (mg/dL) Random Glucose Hemoglobin A1c 5.6 Calcium Phosphorus Magnesium Total Bilirubin AST ALT Alkaline Phosphatase Lactate Dehydrogenase Total Creatine Kinase Troponin I Total Protein Albumin Globulin Albumin/Globulin Ratio Triglycerides Cholesterol LDL Cholesterol Direct HDL Cholesterol TSH 3rd Generation 0.40 L Blood Type Blood Type Confirm Antibody Screen Crossmatch BBK History Checked 12/25/17 12/26/17 12/26/17 21:01 02:04 02:04 WBC 7.9 D RBC 3.38 L Hgb 10.3 L Hct 29.8 L MCV 88.2 MCH 30.5 MCHC 34.6 RDW 13.5 Plt Count 160 MPV 9.4 Gran % Lymph % (Auto) [place] % (Auto) Eos % (Auto) Baso % (Auto) Gran # Lymph # (Auto) [place] # (Auto) Eos # (Auto) Baso # (Auto) Sodium 135 135 Potassium 4.7 3.9 Chloride 101 103 Carbon Dioxide 26 26 Anion Gap 13 10 BUN 60 H 55 H Creatinine 0.9 0.9 Est GFR ( Amer) > 60 > 60 Est GFR (Non-Af Amer) > 60 > 60 POC Glucose (mg/dL) Random Glucose 167 H 133 H Hemoglobin A1c Calcium 8.6 8.3 L Phosphorus 4.0 Magnesium 2.1 Total Bilirubin 1.0 AST 38 ALT 54 Alkaline Phosphatase 44 Lactate Dehydrogenase 331 L Total Creatine Kinase 181 Troponin I 0.02 Total Protein 5.7 L Albumin 3.2 Globulin 2.5 Albumin/Globulin Ratio 1.3 Triglycerides Cholesterol LDL Cholesterol Direct HDL Cholesterol TSH 3rd Generation Blood Type Blood Type Confirm Antibody Screen Crossmatch BBK History Checked 12/26/17 12/26/17 12/26/17 08:15 11:46 13:10 WBC 7.6 8.4 RBC 3.21 L 3.30 L Hgb 9.6 L 10.0 L Hct 28.2 L 29.1 L MCV 87.9 88.2 MCH 29.9 30.3 MCHC 34.0 34.4 RDW 13.8 14.1 Plt Count 152 165 MPV 9.5 9.6 Gran % Lymph % (Auto) [place] % (Auto) Eos % (Auto) Baso % (Auto) Gran # Lymph # (Auto) [place] # (Auto) Eos # (Auto) Baso # (Auto) Sodium Potassium Chloride Carbon Dioxide Anion Gap BUN Creatinine Est GFR ( Amer) Est GFR (Non-Af Amer) POC Glucose (mg/dL) 114 H Random Glucose Hemoglobin A1c Calcium Phosphorus Magnesium Total Bilirubin AST ALT Alkaline Phosphatase Lactate Dehydrogenase Total Creatine Kinase Troponin I Total Protein Albumin Globulin Albumin/Globulin Ratio Triglycerides Cholesterol LDL Cholesterol Direct HDL Cholesterol TSH 3rd Generation Blood Type Blood Type Confirm Antibody Screen Crossmatch BBK History Checked 12/26/17 16:11 WBC 6.1 D RBC 2.93 L Hgb 8.9 L Hct 25.9 L MCV 88.4 MCH 30.4 MCHC 34.4 RDW 14.2 Plt Count 132 MPV 9.4 Gran % Lymph % (Auto) [place] % (Auto) Eos % (Auto) Baso % (Auto) Gran # Lymph # (Auto) [place] # (Auto) Eos # (Auto) Baso # (Auto) Sodium Potassium Chloride Carbon Dioxide Anion Gap BUN Creatinine Est GFR ( Amer) Est GFR (Non-Af Amer) POC Glucose (mg/dL) Random Glucose Hemoglobin A1c Calcium Phosphorus Magnesium Total Bilirubin AST ALT Alkaline Phosphatase Lactate Dehydrogenase Total Creatine Kinase Troponin I Total Protein Albumin Globulin Albumin/Globulin Ratio Triglycerides Cholesterol LDL Cholesterol Direct HDL Cholesterol TSH 3rd Generation Blood Type Blood Type Confirm Antibody Screen Crossmatch BBK History Checked EKG/Cardiology Studies: Cardiology / EKG Studies 12/25/17 19:05 EKG [ELECTROCARDIOGRAM] Stat Comment: 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 Case reviewed on round with housestaff. Agree with resident note above with the following additions/exceptions: 67M admitted with GI bleed. He is on aspirin, and plavix at home for hx of CAD/STEMI with stents 2014 Acute blood loss anemia due to GI bleed liky upper Hx of Stemi/CAD HTN Tubular adenoma He is hemodynamically stable Rec'd 1 unit PRBc which did not change his HB plan for EGD today with GI NPO for now PPI drip Hold aspirin, plavix, NSAIDs, anticoagulation Will follow up post-EGD rest of care above Cindy Clayton MD Lab Clerk
[2017-12-26 08:40] LABS: HEMOGLOBIN 9.6 g/dL (14.0-18.0); MEAN CELL VOLUME 87.9 fl (80.0-105.0); MEAN CORPUSCULAR HEMOGLOBIN 29.9 pg (25.0-35.0); MEAN PLATELET VOLUME 9.5 fl (7.0-11.0); RBC 3.21 10^6/uL (3.5-6.1); RED CELL DISTRIBUTION WIDTH 13.8 % (11.5-14.5); WHITE BLOOD COUNT 7.6 10^3/ul (4.5-11.0)
--- NOTE | 2017-12-26 10:12 | CARD ---
APPROVED REPORT Date of service: 12/25/2017 EKG Measurement Heart [id number] <Conclusion> Normal sinus rhythm Inferior infarct, age undetermined Abnormal ECG
[2017-12-26] MEDS: Sodium Chloride 0.9% 1,000 ML IV SCH (11:46)
--- NOTE | 2017-12-26 13:04 | CP.PCM.PN ---
<Aria Ramos - Last Filed: 12/26/17 13:01> Subjective - Date & Time of Evaluation Date of Evaluation: 12/26/17 Time of Evaluation: 09:30 - Subjective Subjective: PGY-1 Medicine Progress Note for Dr. Heath's service Patient seen and examined at bedside. Patient reports no acute complaints. Patient denies weakness, lightheadedness, dizziness, fevers, chills, chest pain, sob, n/v, constipation or diarrhea, dysuria. Objective - Vital Signs/Intake and Output Vital Signs (last 24 hours): Temp Pulse Resp BP Pulse Ox 98.5 F 85 17 103/59 L 100 12/26/17 12:11 12/26/17 12:00 12/26/17 06:45 12/26/17 06:00 12/26/17 06:45 Intake and Output: 12/26/17 12/26/17 06:59 18:59 Intake Total 1615 Output Total 1650 Balance -35 - Medications Medications: Current Medications Pantoprazole Sodium (Protonix 40mg Ivpb) 40 mg in 100 mls @ 20 mls/hr IVPB .Q5H [facility] Last Admin: 12/26/17 05:46 Dose: 20 mls/hr Sodium Chloride (Sodium Chloride 0.9%) 1,000 mls @ 60 mls/hr IV .[id number] [facility] Last Admin: 12/26/17 11:46 Dose: 60 mls/hr Metoprolol Tartrate (Lopressor) 12.5 mg PO BID ISA - Labs Labs: 12/26/17 08:15 12/26/17 02:04 PT 12.7 SECONDS (9.4-12.5) H 12/25/17 15:53 INR 1.11 12/25/17 15:53 APTT 24.9 Seconds (25.1-36.5) L 12/25/17 15:53 - Constitutional Appears: Non-toxic, No Acute Distress - Head Exam Head Exam: NORMAL INSPECTION, NORMOCEPHALIC - Eye Exam Eye Exam: EOMI, Normal appearance. absent: Nystagmus, Scleral icterus - ENT Exam ENT Exam: Mucous Membranes Moist - Respiratory Exam Respiratory Exam: Clear to Ausculation Bilateral, NORMAL BREATHING PATTERN. absent: Rales, Rhonchi, Wheezes - Cardiovascular Exam Cardiovascular Exam: REGULAR RHYTHM, +S1, +S2 - GI/Abdominal Exam GI & Abdominal Exam: Soft, Normal Bowel Sounds - Neurological Exam Neurological Exam: Alert, Awake, Oriented x3 Neuro motor strength exam: Left Upper Extremity: 5, Right Upper Extremity: 5, Left Lower Extremity: 5, Right Lower Extremity: 5 - Psychiatric Exam Psychiatric exam: Normal Affect, Normal Mood - Skin Skin Exam: Intact, Normal Color Assessment and Plan - Assessment and Plan (Free Text) Assessment: Mr. Casas is a 67 year old male with a PMH of CAD, STEMI s/p PTCA w/ OUSMANE x 3 (2014) on ASA/Plavix, diverticulosis, internal hemorrhoids , colonic polyps, BPH and HTN who presented to the ED with dizziness and light headedness that started a few hours prior to presentation. Trended CBCs showed an acute loss of blood. Patient was repleted with 1 unit of pRBCs. Patient was made NPO and plan for endoscopy by GI team. Plan: Dizziness likely orthostatic 2/2 blood loss Plavix/ASA held in setting of bleed Patient NPO for endoscopy with GI team VSS stable CT head not completed as patient became dizzy; no need currently as patient asymptomatic NS @ 60mls/hr IVPB Hx of BPH Prostate surgery was done with Dr. Cortés Hx of CAD Consider restarting home statin agent after procedure Hx of [place] Will hold off Asa/Plavix Lopressor 12.5 mg po bid Hx of HTN Held in the setting of normotensive blood pressure readings. PPx DVT- SCDs GI- Protonix 40mg po <Ankita Heath - Last Filed: 12/26/17 16:13> Objective - Vital Signs/Intake and Output Vital Signs (last 24 hours): Temp Pulse Resp BP Pulse Ox 98.5 F 85 17 103/59 L 100 12/26/17 12:11 12/26/17 12:00 12/26/17 06:45 12/26/17 06:00 12/26/17 14:58 Intake and Output: 12/26/17 12/26/17 06:59 18:59 Intake Total 1615 Output Total 1650 Balance -35 - Medications Medications: Current Medications Sodium Chloride (Sodium Chloride 0.9%) 1,000 mls @ 60 mls/hr IV .[id number] [facility] Last Admin: 12/26/17 11:46 Dose: 60 mls/hr Metoprolol Tartrate (Lopressor) 12.5 mg PO BID ISA Pantoprazole Sodium (Protonix Inj) 40 mg IVP Q12 ISA - Labs Labs: 12/26/17 13:10 12/26/17 02:04 PT 12.7 SECONDS (9.4-12.5) H 12/25/17 15:53 INR 1.11 12/25/17 15:53 APTT 24.9 Seconds (25.1-36.5) L 12/25/17 15:53 Attending/Attestation - Attestation I have personally seen and examined this patient.: Yes I have fully participated in the care of the patient.: Yes I have reviewed all pertinent clinical information, including history, physical exam and plan: Yes Notes (Text): 12/26/17 16:11 Medical record note made by the resident after discussion with my direction and input after the patient was personally seen and examined by me. I have reviewed the chart and agree that the record accurately reflects by personal performance of the history, physical exam, data review, and medical decision-making, in the course for the patient. I have also personally directed the plan of care. 67 year old male with a PMH of CAD, STEMI s/p PTCA w/ OUSMANE x 3 (2014) on ASA/Plavix, diverticulosis, internal hemorrhoids , colonic polyps, BPH and HTN was admitted with GI bleeding. He is SP one unit PRBC.Tachycardia is improved, on IV fluid and PPI. Patient is for EGD by GI today, we will follow up results. Management plan was discussed in detail with patient. Education was provided.
[2017-12-26 13:32] LABS: MEAN CELL VOLUME 88.2 fl (80.0-105.0); MEAN CORPUSCULAR HEMOGLOBIN 30.3 pg (25.0-35.0); MEAN CORPUSCULAR HGB CONC 34.4 g/dl (31.0-37.0); MEAN PLATELET VOLUME 9.6 fl (7.0-11.0); RBC 3.3 10^6/uL (3.5-6.1); RED CELL DISTRIBUTION WIDTH 14.1 % (11.5-14.5); WHITE BLOOD COUNT 8.4 10^3/ul (4.5-11.0)
[2017-12-26] MEDS ORDERED: Propofol 10 mg/ml Inj (20 ML) ONE (15:00)
[2017-12-26 16:16] LABS: HEMOGLOBIN 8.9 g/dL (14.0-18.0); MEAN CELL VOLUME 88.4 fl (80.0-105.0); MEAN CORPUSCULAR HEMOGLOBIN 30.4 pg (25.0-35.0); MEAN CORPUSCULAR HGB CONC 34.4 g/dl (31.0-37.0); MEAN PLATELET VOLUME 9.4 fl (7.0-11.0); RBC 2.93 10^6/uL (3.5-6.1); RED CELL DISTRIBUTION WIDTH 14.2 % (11.5-14.5); WHITE BLOOD COUNT 6.1 10^3/ul (4.5-11.0)
--- NOTE | 2017-12-26 17:15 | PN ---
DATE: 12/26/2017 LOCATION: Patient in ICU 128, bed 4. REASON FOR CONSULTATION: Coronary artery disease, GI bleeding, hypertension, dizzy spells. SUBJECTIVE: Patient was admitted yesterday with GI bleeding and feeling dizzy and weak. Denied any chest pain, shortness of breath, or palpitation. Patient received one blood transfusion lot during the night and he is lying flat in bed without any cardiac symptoms. Patient did not have any bowel movement since admission. PHYSICAL EXAMINATION: VITAL SIGNS: Blood pressure 103/59, respiration 20, pulse 76, patient is afebrile. HEENT: Head is normocephalic. Eyes, pupils normal. Conjunctivae slightly pale. NECK: JVP low. Carotids equal. THORAX: AP diameter normal. LUNGS: Clear. CARDIOPULMONARY: S1, S2. ABDOMEN: Soft. No tenderness. No organomegaly. Bowel sounds normal. EXTREMITIES: No clubbing. No cyanosis. LABORATORY DATA: WBC 8.4, hemoglobin 10, hematocrit 29.1, platelet 165. Sodium 135, potassium 3.9, BUN 55, creatinine 0.9. Sugar 114, glucose 133, calcium 8.3, phosphorous 4, magnesium 2.1. Troponin x2 negative. DIAGNOSES: Acute upper gastrointestinal bleeding, possibility of ulcer, coronary artery disease, history of stent insertion, prostatic hypertrophy, history of colonic diverticulosis, history of colon polyps, dizziness probably on the basis of bleeding, history of internal hemorrhoids. PLAN: Clinically, patient's cardiac status is stable and patient needs to do endoscopy and from cardiac point of view he can go for endoscopy as moderate risk. Patient's Plavix, aspirin have been already stopped. Patient getting Protonix 40 p.o. daily. I started patient on metoprolol tartrate 12.5 mg p.o. b.i.d. Patient getting IV fluid therapy. Patient is scheduled for endoscopy today. From cardiac point of view, he can go for endoscopy as moderate risk and we will continue to follow BUN, creatinine, and CBC. BUN, creatinine elevated probably on the basis of GI bleeding and we will continue IV fluids. Ankita Cordero MD
[2017-12-26 21:25] LABS: HEMOGLOBIN 8.8 g/dL (14.0-18.0); MEAN CELL VOLUME 88.9 fl (80.0-105.0); MEAN CORPUSCULAR HEMOGLOBIN 30.7 pg (25.0-35.0); MEAN CORPUSCULAR HGB CONC 34.5 g/dl (31.0-37.0); MEAN PLATELET VOLUME 9.2 fl (7.0-11.0); RBC 2.87 10^6/uL (3.5-6.1); WHITE BLOOD COUNT 6.7 10^3/ul (4.5-11.0)
[2017-12-27] MEDS: Sodium Chloride 0.9% 1,000 ML IV SCH ×2 (04:54→23:10)
[2017-12-27 05:45] LABS: HEMOGLOBIN 10.2 g/dL (14.0-18.0); MEAN CELL VOLUME 89.4 fl (80.0-105.0); MEAN CORPUSCULAR HGB CONC 30.2 g/dl (31.0-37.0); MEAN PLATELET VOLUME 8.2 fl (7.0-11.0); RBC 3.78 10^6/uL (3.5-6.1); RED CELL DISTRIBUTION WIDTH 17.9 % (11.5-14.5); WHITE BLOOD COUNT 11.6 10^3/ul (4.5-11.0)
[2017-12-27] MEDS ORDERED: Pantoprazole 40 mg EC Tab PO SCH (06:00)
[2017-12-27 06:08] LABS: ALB/GLOB RATIO 1.1 (1.1-1.8); ALBUMIN 2.7 g/dL (3.0-4.8); ALT/SGPT 22 U/L (7-56); AST/SGOT 34 U/L (17-59); BLOOD UREA NITROGEN 43 mg/dL (7-21); CALCIUM 8.2 mg/dL (8.4-10.5); GFR NON-AFRICAN AMERICAN 51
--- NOTE | 2017-12-27 06:59 | CP.PCM.PN ---
<Aria Ramos - Last Filed: 12/27/17 14:04> Subjective - Date & Time of Evaluation Date of Evaluation: 12/27/17 Time of Evaluation: 07:30 - Subjective Subjective: PGY-1 Medicine Progress Note for Dr. Heath's service Patient seen and examined at bedside. Patient offers no acute complaints. Patient denies fevers, chills, chest pain, sob, n/v, constipation or diarrhea, dysuria, melena, hematochezia. Objective - Vital Signs/Intake and Output Vital Signs (last 24 hours): Temp Pulse Resp BP Pulse Ox 97.9 F 67 15 114/60 100 12/27/17 04:00 12/27/17 06:00 12/26/17 18:00 12/26/17 18:00 12/26/17 18:00 Intake and Output: 12/26/17 12/27/17 18:59 06:59 Intake Total 940 840 Output Total 725 900 Balance 215 -60 - Medications Medications: Current Medications Sodium Chloride (Sodium Chloride 0.9%) 1,000 mls @ 60 mls/hr IV .[id number] [facility] Last Admin: 12/27/17 04:54 Dose: 60 mls/hr Metoprolol Tartrate (Lopressor) 12.5 mg PO BID [facility] Pantoprazole Sodium (Protonix Inj) 40 mg IVP Q12 [facility] Last Admin: 12/26/17 21:34 Dose: 40 mg - Labs Labs: 12/27/17 05:00 12/27/17 05:00 PT 12.7 SECONDS (9.4-12.5) H 12/25/17 15:53 INR 1.11 12/25/17 15:53 APTT 24.9 Seconds (25.1-36.5) L 12/25/17 15:53 - Constitutional Appears: Non-toxic, No Acute Distress - Head Exam Head Exam: NORMAL INSPECTION, NORMOCEPHALIC - Eye Exam Eye Exam: EOMI, Normal appearance. absent: Nystagmus, Scleral icterus - ENT Exam ENT Exam: Mucous Membranes Moist - Respiratory Exam Respiratory Exam: Clear to Ausculation Bilateral, NORMAL BREATHING PATTERN. absent: Rales, Rhonchi, Wheezes - Cardiovascular Exam Cardiovascular Exam: REGULAR RHYTHM, +S1, +S2. absent: Tachycardia, Murmur - GI/Abdominal Exam GI & Abdominal Exam: Soft, Normal Bowel Sounds. absent: Distended, Firm, Guarding, Tenderness - Extremities Exam Extremities Exam: Normal Inspection. absent: Calf Tenderness, Pedal Edema - Neurological Exam Neurological Exam: Alert, Awake, Oriented x3 - Psychiatric Exam Psychiatric exam: Normal Affect, Normal Mood - Skin Skin Exam: Intact, Normal Color Assessment and Plan - Assessment and Plan (Free Text) Assessment: Mr. Casas is a 67 year old male with a PMH of CAD, STEMI s/p PTCA w/ OUSMANE x 3 (2014) on ASA/Plavix, diverticulosis, internal hemorrhoids , colonic polyps, BPH and HTN who presented to the ED with dizziness and light headedness that started a few hours prior to presentation. Trended CBCs showed an acute loss of blood. Patient was repleted with 1 unit of pRBCs. Patient was made NPO and plan for endoscopy by GI team. Endoscopy showed no active bleeding. Patient will remain on IV protonix for 24 hours prior to dc. Plan: Dizziness Cardio Consult- Dr. Jess gonsalves as below GI consult- Dr. Bora gonsalves as belo likely orthostatic 2/2 blood loss Orthostatics currently negative Plavix/ASA held in setting of bleed Endoscopy shows one linear esophageal ulcer with no bleeding and no recent bleeding; a 1 cm hiatal hernai; mild schatzki ring; hematin in gastric fundus; multiple dispersed small erosions were found in the stomach, few superficial ulcers were found in the stomach VSS stable CT head not completed as patient became dizzy; no need currently as patient asymptomatic NS @ 60mls/hr IVPB Hx of BPH Prostate surgery was done with Dr. Cortés Hx of CAD Consider restarting home statin agent after procedure Hx of [place] Will hold off Asa/Plavix Lopressor 12.5 mg po bid Hx of HTN Held in the setting of normotensive blood pressure readings. PPx DVT- SCDs GI- Protonix 40mg IV Medical Management discussed with Dr. Heath PGY-1 Aria Ramos <Ankita Heath - Last Filed: 12/27/17 15:16> Objective - Vital Signs/Intake and Output Vital Signs (last 24 hours): Temp Pulse Resp BP Pulse Ox 98.4 F 76 11 L 108/58 L 100 12/27/17 12:00 12/27/17 14:00 10/20/18 13:00 12/27/17 13:00 12/27/17 13:00 Intake and Output: 12/27/17 12/27/17 06:59 18:59 Intake Total 840 Output Total 900 950 Balance -60 -950 - Medications Medications: Current Medications Sodium Chloride (Sodium Chloride 0.9%) 1,000 mls @ 60 mls/hr IV .[id number] ISA Last Admin: 12/27/17 04:54 Dose: 60 mls/hr Metoprolol Tartrate (Lopressor) 12.5 mg PO BID ISA Pantoprazole Sodium (Protonix Inj) 40 mg IVP Q12 ISA Last Admin: 12/27/17 09:38 Dose: 40 mg - Labs Labs: 12/27/17 13:20 12/27/17 05:00 PT 12.7 SECONDS (9.4-12.5) H 12/25/17 15:53 INR 1.11 12/25/17 15:53 APTT 24.9 Seconds (25.1-36.5) L 12/25/17 15:53 Attending/Attestation - Attestation I have personally seen and examined this patient.: Yes I have fully participated in the care of the patient.: Yes I have reviewed all pertinent clinical information, including history, physical exam and plan: Yes Notes (Text): 12/27/17 15:16 Medical record note made by the resident after discussion with my direction and input after the patient was personally seen and examined by me. I have reviewed the chart and agree that the record accurately reflects by personal performance of the history, physical exam, data review, and medical decision-making, in the course for the patient. I have also personally directed the plan of care.
[2017-12-27] MEDS ORDERED: Sodium Chloride 0.9% 1,000 ML IV STA (08:19)
--- NOTE | 2017-12-27 09:34 | CP.CCUPN ---
<Nigel Galvan - Last Filed: 12/27/17 10:51> CCU Subjective - Physician Review Subjective (Free Text): Nigel Galvan, CCU Progress Note for Dr. Reilly Patient seen and examined at bedside. Patient is sitting at bedside and not in acute distress. Patient does not look pale and is stating well on 3L of NC. Today, patient reports itchiness of bilateral eyes. Patient denies dizziness, fever, change in vision, eye redness, eye discharge, headache, chest pain, heart palpitations, shortness of breath, cough, wheezing, nausea, vomiting, constipation, diarrhea, dysuria, hematuria, numbness/tingling. 12-ROS was unremarkable except for what was mentioned above. CCU Objective - Vital Signs / Intake & Output Vital Signs (Last 4 hours): Vital Signs Pulse Resp BP Pulse Ox 12/27/17 07:00 70 17 96/56 L 100 12/27/17 06:00 67 105/56 L 12/27/17 05:59 81 23 99 Intake and Output (Last 8hrs): Intake & Output 12/26/17 12/27/17 12/27/17 22:59 06:59 14:59 Intake Total 940 840 Output Total 725 900 Balance 215 -60 Weight 180 lb Intake: IV 720 Left Forearm 720 Oral 940 120 Output: Urine 725 900 Urine, Voided 725 900 Other: # Voids Urine, Voided 3 - Physical Exam Head: Positive for: Atraumatic, Normocephalic Pupils: Positive for: PERRL Extroacular Muscles: Positive for: EOMI Conjunctiva: Positive for: Normal, Other (no erythema, discharge) Mouth: Positive for: Moist Mucous Membranes Neck: Positive for: Normal Range of Motion Respiratory/Chest: Positive for: Clear to Auscultation, Good Air Exchange. Negative for: Respiratory Distress, Accessory Muscle Use Cardiovascular: Positive for: Regular Rate and Rhythm, Normal S1, S2. Negative for: Murmurs Abdomen: Negative for: Tenderness, Distention, Peritoneal Signs Rectal: Positive for: Other (guaiac positive) Back: Positive for: Normal Inspection Upper Extremity: Positive for: Normal Inspection. Negative for: Cyanosis, Edema Lower Extremity: Positive for: Normal Inspection. Negative for: Edema Neurological: Positive for: GCS=15, CN II-XII Intact, Speech Normal Skin: Positive for: Warm, Dry, Normal Color. Negative for: Rashes Psychiatric: Positive for: Alert, Oriented x 3, Normal Insight, Normal Concentration - Medications Active Medications: Active Medications Generic Name Dose Route Start Last Admin Trade Name Freq PRN Reason Stop Dose Admin Sodium Chloride 1,000 mls @ 60 mls/hr 12/25/17 21:45 12/27/17 04:54 Sodium Chloride 0.9% IV 60 mls/hr .[id number] ISA Administration Metoprolol Tartrate 12.5 mg 12/26/17 07:39 Lopressor PO BID ISA Pantoprazole Sodium 40 mg 12/26/17 22:00 12/26/17 21:34 Protonix Inj IVP 40 mg Q12 ISA Administration - Patient Studies Lab Studies: Lab Studies 12/27/17 12/27/17 12/27/17 Range/Units 06:16 05:00 05:00 WBC 11.6 H D (4.5-11.0) 10^3/ul RBC 3.78 (3.5-6.1) 10^6/uL Hgb 10.2 L (14.0-18.0) g/dL Hct 33.8 L (42.0-52.0) % MCV 89.4 (80.0-105.0) fl MCH 27.0 (25.0-35.0) pg MCHC 30.2 L (31.0-37.0) g/dl RDW 17.9 H (11.5-14.5) % Plt Count 233 (120.0-450.0) 10^3/uL MPV 8.2 (7.0-11.0) fl Sodium 136 (132-148) mmol/L Potassium 3.9 (3.6-5.0) mmol/L Chloride 98 (98-107) mmol/L Carbon Dioxide 32 (21-33) mmol/L Anion Gap 10 (10-20) BUN 43 H (7-21) mg/dL Creatinine 1.4 (0.8-1.5) mg/dl Est GFR ( Amer) > 60 Est GFR (Non-Af Amer) 51 POC Glucose (mg/dL) 89 (65-110) mg/dL Random Glucose 125 H (70-110) mg/dL Hemoglobin A1c (4.2-6.5) % Calcium 8.2 L (8.4-10.5) mg/dL Phosphorus 5.0 H (2.5-4.5) mg/dL Magnesium 2.1 (1.7-2.2) mg/dL Total Bilirubin 0.3 (0.2-1.3) mg/dL AST 34 (17-59) U/L ALT 22 (7-56) U/L Alkaline Phosphatase 55 (38-126) U/L Total Protein 5.3 L (5.8-8.3) g/dL Albumin 2.7 L (3.0-4.8) g/dL Globulin 2.5 gm/dL Albumin/Globulin Ratio 1.1 (1.1-1.8) 12/26/17 12/26/17 12/26/17 Range/Units 23:25 21:20 18:20 WBC 6.7 (4.5-11.0) 10^3/ul RBC 2.87 L (3.5-6.1) 10^6/uL Hgb 8.8 L (14.0-18.0) g/dL Hct 25.5 L (42.0-52.0) % MCV 88.9 (80.0-105.0) fl MCH 30.7 (25.0-35.0) pg MCHC 34.5 (31.0-37.0) g/dl RDW 14.0 (11.5-14.5) % Plt Count 149 (120.0-450.0) 10^3/uL MPV 9.2 (7.0-11.0) fl Sodium (132-148) mmol/L Potassium (3.6-5.0) mmol/L Chloride (98-107) mmol/L Carbon Dioxide (21-33) mmol/L Anion Gap (10-20) BUN (7-21) mg/dL Creatinine (0.8-1.5) mg/dl Est GFR ( Amer) Est GFR (Non-Af Amer) POC Glucose (mg/dL) 87 126 H (65-110) mg/dL Random Glucose (70-110) mg/dL Hemoglobin A1c (4.2-6.5) % Calcium (8.4-10.5) mg/dL Phosphorus (2.5-4.5) mg/dL Magnesium (1.7-2.2) mg/dL Total Bilirubin (0.2-1.3) mg/dL AST (17-59) U/L ALT (7-56) U/L Alkaline Phosphatase (38-126) U/L Total Protein (5.8-8.3) g/dL Albumin (3.0-4.8) g/dL Globulin gm/dL Albumin/Globulin Ratio (1.1-1.8) 12/26/17 12/26/17 12/26/17 Range/Units 16:11 13:10 11:46 WBC 6.1 D 8.4 (4.5-11.0) 10^3/ul RBC 2.93 L 3.30 L (3.5-6.1) 10^6/uL Hgb 8.9 L 10.0 L (14.0-18.0) g/dL Hct 25.9 L 29.1 L (42.0-52.0) % MCV 88.4 88.2 (80.0-105.0) fl MCH 30.4 30.3 (25.0-35.0) pg MCHC 34.4 34.4 (31.0-37.0) g/dl RDW 14.2 14.1 (11.5-14.5) % Plt Count 132 165 (120.0-450.0) 10^3/uL MPV 9.4 9.6 (7.0-11.0) fl Sodium (132-148) mmol/L Potassium (3.6-5.0) mmol/L Chloride (98-107) mmol/L Carbon Dioxide (21-33) mmol/L Anion Gap (10-20) BUN (7-21) mg/dL Creatinine (0.8-1.5) mg/dl Est GFR ( Amer) Est GFR (Non-Af Amer) POC Glucose (mg/dL) 114 H (65-110) mg/dL Random Glucose (70-110) mg/dL Hemoglobin A1c (4.2-6.5) % Calcium (8.4-10.5) mg/dL Phosphorus (2.5-4.5) mg/dL Magnesium (1.7-2.2) mg/dL Total Bilirubin (0.2-1.3) mg/dL AST (17-59) U/L ALT (7-56) U/L Alkaline Phosphatase (38-126) U/L Total Protein (5.8-8.3) g/dL Albumin (3.0-4.8) g/dL Globulin gm/dL Albumin/Globulin Ratio (1.1-1.8) 12/25/17 Range/Units 21:01 WBC (4.5-11.0) 10^3/ul RBC (3.5-6.1) 10^6/uL Hgb (14.0-18.0) g/dL Hct (42.0-52.0) % MCV (80.0-105.0) fl MCH (25.0-35.0) pg MCHC (31.0-37.0) g/dl RDW (11.5-14.5) % Plt Count (120.0-450.0) 10^3/uL MPV (7.0-11.0) fl Sodium (132-148) mmol/L Potassium (3.6-5.0) mmol/L Chloride (98-107) mmol/L Carbon Dioxide (21-33) mmol/L Anion Gap (10-20) BUN (7-21) mg/dL Creatinine (0.8-1.5) mg/dl Est GFR ( Amer) Est GFR (Non-Af Amer) POC Glucose (mg/dL) (65-110) mg/dL Random Glucose (70-110) mg/dL Hemoglobin A1c 5.6 (4.2-6.5) % Calcium (8.4-10.5) mg/dL Phosphorus (2.5-4.5) mg/dL Magnesium (1.7-2.2) mg/dL Total Bilirubin (0.2-1.3) mg/dL AST (17-59) U/L ALT (7-56) U/L Alkaline Phosphatase (38-126) U/L Total Protein (5.8-8.3) g/dL Albumin (3.0-4.8) g/dL Globulin gm/dL Albumin/Globulin Ratio (1.1-1.8) Laboratory Results - last 24 hr 12/25/17 12/26/17 12/26/17 21:01 11:46 13:10 WBC 8.4 RBC 3.30 L Hgb 10.0 L Hct 29.1 L MCV 88.2 MCH 30.3 MCHC 34.4 RDW 14.1 Plt Count 165 MPV 9.6 Sodium Potassium Chloride Carbon Dioxide Anion Gap BUN Creatinine Est GFR ( Amer) Est GFR (Non-Af Amer) POC Glucose (mg/dL) 114 H Random Glucose Hemoglobin A1c 5.6 Calcium Phosphorus Magnesium Total Bilirubin AST ALT Alkaline Phosphatase Total Protein Albumin Globulin Albumin/Globulin Ratio 12/26/17 12/26/17 12/26/17 16:11 18:20 21:20 WBC 6.1 D 6.7 RBC 2.93 L 2.87 L Hgb 8.9 L 8.8 L Hct 25.9 L 25.5 L MCV 88.4 88.9 MCH 30.4 30.7 MCHC 34.4 34.5 RDW 14.2 14.0 Plt Count 132 149 MPV 9.4 9.2 Sodium Potassium Chloride Carbon Dioxide Anion Gap BUN Creatinine Est GFR ( Amer) Est GFR (Non-Af Amer) POC Glucose (mg/dL) 126 H Random Glucose Hemoglobin A1c Calcium Phosphorus Magnesium Total Bilirubin AST ALT Alkaline Phosphatase Total Protein Albumin Globulin Albumin/Globulin Ratio 12/26/17 12/27/17 12/27/17 23:25 05:00 05:00 WBC 11.6 H D RBC 3.78 Hgb 10.2 L Hct 33.8 L MCV 89.4 MCH 27.0 MCHC 30.2 L RDW 17.9 H Plt Count 233 MPV 8.2 Sodium 136 Potassium 3.9 Chloride 98 Carbon Dioxide 32 Anion Gap 10 BUN 43 H Creatinine 1.4 Est GFR ( Amer) > 60 Est GFR (Non-Af Amer) 51 POC Glucose (mg/dL) 87 Random Glucose 125 H Hemoglobin A1c Calcium 8.2 L Phosphorus 5.0 H Magnesium 2.1 Total Bilirubin 0.3 AST 34 ALT 22 Alkaline Phosphatase 55 Total Protein 5.3 L Albumin 2.7 L Globulin 2.5 Albumin/Globulin Ratio 1.1 12/27/17 06:16 WBC RBC Hgb Hct MCV MCH MCHC RDW Plt Count MPV Sodium Potassium Chloride Carbon Dioxide Anion Gap BUN Creatinine Est GFR ( Amer) Est GFR (Non-Af Amer) POC Glucose (mg/dL) 89 Random Glucose Hemoglobin A1c Calcium Phosphorus Magnesium Total Bilirubin AST ALT Alkaline Phosphatase Total Protein Albumin Globulin Albumin/Globulin Ratio Fingerstick Blood Sugar Results: 89 Review of Systems - Constitutional Constitutional: absent: Fever, Chills, Sweats - EENT Eyes: Itchy Eyes. absent: Blurred Vision, Change in Vision, Diplopia, Discharge Ears: absent: Decreased Hearing Nose/Mouth/Throat: absent: Sore Throat - Cardiovascular Cardiovascular: absent: Chest Pain - Respiratory Respiratory: absent: Dyspnea - Gastrointestinal Gastrointestinal: absent: Abdominal Pain - Genitourinary Genitourinary: absent: Dysuria, Hematuria - Musculoskeletal Musculoskeletal: absent: Arthralgias, Back Pain - Neurological Neurological: absent: Numbness, Tingling, Tremor, Weakness Critical Care Progress Note - Ventilator Checklist Head of Bed 30 Degrees: Yes PUD Prophalyxis: Yes DVT Prophylaxis: Yes - Nutrition Nutrition: Nutrition Category Date Time Status Liquid Diet [DIET] Diets 12/26/17 Dinner Ordered Assessment/Plan - Assessment and Plan (Free Text) Assessment: 67 year old male with past medical history of CAD, STEMI with PTCA with DESx3 in 2014, ASA/plavix, diverticulosis, internal hemorrhoids, colonic polyps, BPH, HTN presents with dizziness, lightheadedness and 3 black, loose stools. Patient lost consciousness twice yesterday, was found to have guaiac positive stool, and had an episode of dizziness and LOC when he was able to go for a CT scan Plan: Neuro: -AAOx3, no FND, moving extremities past midline. -Monitor neuro status. -Reorient patient as necessary. Cardio: -RRR, borderline hypotensive at 99/63, no signs of HD compromise -EKG: sinus tachycardia at HR: 105 -Last echocardiogram in 2014: LVEF: 55.6% -Lopressor 12.5 mg BID held due to patient's low blood pressure. -As per cardiology, patient is moderate risk for endoscopy procedure today but is stable for procedure. -Maintain MAP>65. -Monitor for S/S, HD compromise. Pulm: -No signs of respiratory distress. CTA B/L -Patient is stating well on room air. -Maintain O2 saturation>95%. -CXR: no active disease -Elevate bed to 30 degrees GI: -Liquid diet. -Patient has had an elevated BUN/Cr ratio throughout admission, admitted to 3 episodes of black loose stools, and was guiaic positive. Patient reports last taking NSAID on Friday. Patient had one U of PRBCs last night. Patient is currently asymptomatic. Patient is currently anemic at 10.2. -Upper endoscopy: 39 cm Z line, non bleeding esophageal ulcer, mild schatzki ring, 1 cm hiatal hernia, hematin in gastric fungus, erosive gastropathy, gastric ulcers, normal duodenum -Protonix drip at 20 cc/hr -Last colonoscopy in 01/2017 showed 1 5 mm tubular adenoma in descending colon, 1 hyperplastic polyp in ascending colon, 1 8 mm sigmoid diverticula, and internal hemorrhoids. /Nephro: -BUN/Cr ratio elevated at 43/1.4 likely 2/2 to hypovolemia vs. upper GI bleed. Last creatinine was 0.9 -Elevated creatinine is likely due to prerenal azotemia/ATN. -NS at 60 cc/hr -UA: 15 ketones, negative nitrates, negative leukocyte esterase -Corrected calcium: 8.3 -Phosphate: 5. Consider renagel if phosphate>5.5 -Continue monitoring. -Replete electrolytes as needed. -Maintain euvolemia. Endocrinology: -Random glucose: 125 -Maintain euglycemia. Heme/Onc: -H/H is 10.2/33.8. Patient's hemoglobin increased from 10 to 10.3 post 1 U of PRBCs 2 days ago -3 more units of PRBCs ready for transfusion if patient is symptomatic for anemia or if Hgb<8 due to patient's cardiac status. -1 U of platelet pharesis on standby if needed for prior or post endoscopy today. -No signs of HD compromise. -Continue monitoring H/H ID: -Afebrile, no leukocytosis -Monitor for signs and symptoms of infection. DVT prophylaxis: SCD GI prophylaxis: protonix drip at 20 cc/hr Disposition: Patient is stable and ready for transfer to medicine floors at this time. Patient seen and examined with Dr. Reilly. - Date & Time Date: 12/27/17 Time: 09:35 <Mark Reilly - Last Filed: 12/27/17 11:45> CCU Objective - Vital Signs / Intake & Output Intake and Output (Last 8hrs): Intake & Output 12/26/17 12/27/17 12/27/17 22:59 06:59 14:59 Intake Total 940 840 Output Total 725 900 Balance 215 -60 Weight 180 lb Intake: IV 720 Left Forearm 720 Oral 940 120 Output: Urine 725 900 Urine, Voided 725 900 Other: # Voids Urine, Voided 3 - Medications Active Medications: Active Medications Generic Name Dose Route Start Last Admin Trade Name Freq PRN Reason Stop Dose Admin Sodium Chloride 1,000 mls @ 60 mls/hr 12/25/17 21:45 12/27/17 04:54 Sodium Chloride 0.9% IV 60 mls/hr .[id number] ISA Administration Metoprolol Tartrate 12.5 mg 12/26/17 07:39 Lopressor PO BID ISA Pantoprazole Sodium 40 mg 12/26/17 22:00 12/27/17 09:38 Protonix Inj IVP 40 mg Q12 ISA Administration - Patient Studies Lab Studies: Lab Studies 12/27/17 12/27/17 12/27/17 Range/Units 06:16 05:00 05:00 WBC 11.6 H D (4.5-11.0) 10^3/ul RBC 3.78 (3.5-6.1) 10^6/uL Hgb 10.2 L (14.0-18.0) g/dL Hct 33.8 L (42.0-52.0) % MCV 89.4 (80.0-105.0) fl MCH 27.0 (25.0-35.0) pg MCHC 30.2 L (31.0-37.0) g/dl RDW 17.9 H (11.5-14.5) % Plt Count 233 (120.0-450.0) 10^3/uL MPV 8.2 (7.0-11.0) fl Sodium 136 (132-148) mmol/L Potassium 3.9 (3.6-5.0) mmol/L Chloride 98 (98-107) mmol/L Carbon Dioxide 32 (21-33) mmol/L Anion Gap 10 (10-20) BUN 43 H (7-21) mg/dL Creatinine 1.4 (0.8-1.5) mg/dl Est GFR ( Amer) > 60 Est GFR (Non-Af Amer) 51 POC Glucose (mg/dL) 89 (65-110) mg/dL Random Glucose 125 H (70-110) mg/dL Hemoglobin A1c (4.2-6.5) % Calcium 8.2 L (8.4-10.5) mg/dL Phosphorus 5.0 H (2.5-4.5) mg/dL Magnesium 2.1 (1.7-2.2) mg/dL Total Bilirubin 0.3 (0.2-1.3) mg/dL AST 34 (17-59) U/L ALT 22 (7-56) U/L Alkaline Phosphatase 55 (38-126) U/L Total Protein 5.3 L (5.8-8.3) g/dL Albumin 2.7 L (3.0-4.8) g/dL Globulin 2.5 gm/dL Albumin/Globulin Ratio 1.1 (1.1-1.8) 12/26/17 12/26/17 12/26/17 Range/Units 23:25 21:20 18:20 WBC 6.7 (4.5-11.0) 10^3/ul RBC 2.87 L (3.5-6.1) 10^6/uL Hgb 8.8 L (14.0-18.0) g/dL Hct 25.5 L (42.0-52.0) % MCV 88.9 (80.0-105.0) fl MCH 30.7 (25.0-35.0) pg MCHC 34.5 (31.0-37.0) g/dl RDW 14.0 (11.5-14.5) % Plt Count 149 (120.0-450.0) 10^3/uL MPV 9.2 (7.0-11.0) fl Sodium (132-148) mmol/L Potassium (3.6-5.0) mmol/L Chloride (98-107) mmol/L Carbon Dioxide (21-33) mmol/L Anion Gap (10-20) BUN (7-21) mg/dL Creatinine (0.8-1.5) mg/dl Est GFR ( Amer) Est GFR (Non-Af Amer) POC Glucose (mg/dL) 87 126 H (65-110) mg/dL Random Glucose (70-110) mg/dL Hemoglobin A1c (4.2-6.5) % Calcium (8.4-10.5) mg/dL Phosphorus (2.5-4.5) mg/dL Magnesium (1.7-2.2) mg/dL Total Bilirubin (0.2-1.3) mg/dL AST (17-59) U/L ALT (7-56) U/L Alkaline Phosphatase (38-126) U/L Total Protein (5.8-8.3) g/dL Albumin (3.0-4.8) g/dL Globulin gm/dL Albumin/Globulin Ratio (1.1-1.8) 12/26/17 12/26/17 12/26/17 Range/Units 16:11 13:10 11:46 WBC 6.1 D 8.4 (4.5-11.0) 10^3/ul RBC 2.93 L 3.30 L (3.5-6.1) 10^6/uL Hgb 8.9 L 10.0 L (14.0-18.0) g/dL Hct 25.9 L 29.1 L (42.0-52.0) % MCV 88.4 88.2 (80.0-105.0) fl MCH 30.4 30.3 (25.0-35.0) pg MCHC 34.4 34.4 (31.0-37.0) g/dl RDW 14.2 14.1 (11.5-14.5) % Plt Count 132 165 (120.0-450.0) 10^3/uL MPV 9.4 9.6 (7.0-11.0) fl Sodium (132-148) mmol/L Potassium (3.6-5.0) mmol/L Chloride (98-107) mmol/L Carbon Dioxide (21-33) mmol/L Anion Gap (10-20) BUN (7-21) mg/dL Creatinine (0.8-1.5) mg/dl Est GFR ( Amer) Est GFR (Non-Af Amer) POC Glucose (mg/dL) 114 H (65-110) mg/dL Random Glucose (70-110) mg/dL Hemoglobin A1c (4.2-6.5) % Calcium (8.4-10.5) mg/dL Phosphorus (2.5-4.5) mg/dL Magnesium (1.7-2.2) mg/dL Total Bilirubin (0.2-1.3) mg/dL AST (17-59) U/L ALT (7-56) U/L Alkaline Phosphatase (38-126) U/L Total Protein (5.8-8.3) g/dL Albumin (3.0-4.8) g/dL Globulin gm/dL Albumin/Globulin Ratio (1.1-1.8) 12/25/17 Range/Units 21:01 WBC (4.5-11.0) 10^3/ul RBC (3.5-6.1) 10^6/uL Hgb (14.0-18.0) g/dL Hct (42.0-52.0) % MCV (80.0-105.0) fl MCH (25.0-35.0) pg MCHC (31.0-37.0) g/dl RDW (11.5-14.5) % Plt Count (120.0-450.0) 10^3/uL MPV (7.0-11.0) fl Sodium (132-148) mmol/L Potassium (3.6-5.0) mmol/L Chloride (98-107) mmol/L Carbon Dioxide (21-33) mmol/L Anion Gap (10-20) BUN (7-21) mg/dL Creatinine (0.8-1.5) mg/dl Est GFR ( Amer) Est GFR (Non-Af Amer) POC Glucose (mg/dL) (65-110) mg/dL Random Glucose (70-110) mg/dL Hemoglobin A1c 5.6 (4.2-6.5) % Calcium (8.4-10.5) mg/dL Phosphorus (2.5-4.5) mg/dL Magnesium (1.7-2.2) mg/dL Total Bilirubin (0.2-1.3) mg/dL AST (17-59) U/L ALT (7-56) U/L Alkaline Phosphatase (38-126) U/L Total Protein (5.8-8.3) g/dL Albumin (3.0-4.8) g/dL Globulin gm/dL Albumin/Globulin Ratio (1.1-1.8) Laboratory Results - last 24 hr 12/25/17 12/26/17 12/26/17 21:01 11:46 13:10 WBC 8.4 RBC 3.30 L Hgb 10.0 L Hct 29.1 L MCV 88.2 MCH 30.3 MCHC 34.4 RDW 14.1 Plt Count 165 MPV 9.6 Sodium Potassium Chloride Carbon Dioxide Anion Gap BUN Creatinine Est GFR ( Amer) Est GFR (Non-Af Amer) POC Glucose (mg/dL) 114 H Random Glucose Hemoglobin A1c 5.6 Calcium Phosphorus Magnesium Total Bilirubin AST ALT Alkaline Phosphatase Total Protein Albumin Globulin Albumin/Globulin Ratio 12/26/17 12/26/17 12/26/17 16:11 18:20 21:20 WBC 6.1 D 6.7 RBC 2.93 L 2.87 L Hgb 8.9 L 8.8 L Hct 25.9 L 25.5 L MCV 88.4 88.9 MCH 30.4 30.7 MCHC 34.4 34.5 RDW 14.2 14.0 Plt Count 132 149 MPV 9.4 9.2 Sodium Potassium Chloride Carbon Dioxide Anion Gap BUN Creatinine Est GFR ( Amer) Est GFR (Non-Af Amer) POC Glucose (mg/dL) 126 H Random Glucose Hemoglobin A1c Calcium Phosphorus Magnesium Total Bilirubin AST ALT Alkaline Phosphatase Total Protein Albumin Globulin Albumin/Globulin Ratio 12/26/17 12/27/17 12/27/17 23:25 05:00 05:00 WBC 11.6 H D RBC 3.78 Hgb 10.2 L Hct 33.8 L MCV 89.4 MCH 27.0 MCHC 30.2 L RDW 17.9 H Plt Count 233 MPV 8.2 Sodium 136 Potassium 3.9 Chloride 98 Carbon Dioxide 32 Anion Gap 10 BUN 43 H Creatinine 1.4 Est GFR ( Amer) > 60 Est GFR (Non-Af Amer) 51 POC Glucose (mg/dL) 87 Random Glucose 125 H Hemoglobin A1c Calcium 8.2 L Phosphorus 5.0 H Magnesium 2.1 Total Bilirubin 0.3 AST 34 ALT 22 Alkaline Phosphatase 55 Total Protein 5.3 L Albumin 2.7 L Globulin 2.5 Albumin/Globulin Ratio 1.1 12/27/17 06:16 WBC RBC Hgb Hct MCV MCH MCHC RDW Plt Count MPV Sodium Potassium Chloride Carbon Dioxide Anion Gap BUN Creatinine Est GFR ( Amer) Est GFR (Non-Af Amer) POC Glucose (mg/dL) 89 Random Glucose Hemoglobin A1c Calcium Phosphorus Magnesium Total Bilirubin AST ALT Alkaline Phosphatase Total Protein Albumin Globulin Albumin/Globulin Ratio Critical Care Progress Note - Nutrition Nutrition: Nutrition Category Date Time Status Liquid Diet [DIET] Diets 12/26/17 Dinner Ordered Attending/Attestation - Attestation I have personally seen and examined this patient.: Yes I have fully participated in the care of the patient.: Yes I have reviewed all pertinent clinical information: Yes Notes (Text): 12/27/17 11:[address] Reilly note
--- NOTE | 2017-12-27 10:57 | CP.PCM.PN ---
<Richard Crowley - Last Filed: 12/27/17 10:44> Subjective - Date & Time of Evaluation Date of Evaluation: 12/27/17 Time of Evaluation: 10:44 - Subjective Subjective: Patient is doing well. Tolerating diet. No Bleeding. No vomiting. I discussed diagnosis, treatment and follow up with patient. Objective - Vital Signs/Intake and Output Vital Signs (last 24 hours): Temp Pulse Resp BP Pulse Ox 97.9 F 70 17 96/56 L 100 12/27/17 04:00 12/27/17 07:00 12/27/17 07:00 12/27/17 07:00 12/27/17 07:00 Intake and Output: 12/27/17 12/27/17 06:59 18:59 Intake Total 840 Output Total 900 Balance -60 - Medications Medications: Current Medications Sodium Chloride (Sodium Chloride 0.9%) 1,000 mls @ 60 mls/hr IV .[id number] [facility] Last Admin: 12/27/17 04:54 Dose: 60 mls/hr Metoprolol Tartrate (Lopressor) 12.5 mg PO BID ISA Pantoprazole Sodium (Protonix Inj) 40 mg IVP Q12 ISA Last Admin: 12/27/17 09:38 Dose: 40 mg - Labs Labs: 12/27/17 05:00 12/27/17 05:00 PT 12.7 SECONDS (9.4-12.5) H 12/25/17 15:53 INR 1.11 12/25/17 15:53 APTT 24.9 Seconds (25.1-36.5) L 12/25/17 15:53 - Constitutional Appears: Well, No Acute Distress - Head Exam Head Exam: NORMAL INSPECTION - Eye Exam Eye Exam: Normal appearance - ENT Exam ENT Exam: Normal Exam - Respiratory Exam Respiratory Exam: Clear to Ausculation Bilateral, NORMAL BREATHING PATTERN - Cardiovascular Exam Cardiovascular Exam: REGULAR RHYTHM, +S1, +S2 - GI/Abdominal Exam GI & Abdominal Exam: Soft, Normal Bowel Sounds. absent: Tenderness - Extremities Exam Extremities Exam: Normal Inspection - Neurological Exam Neurological Exam: Alert, Awake, Oriented x3 - Psychiatric Exam Psychiatric exam: Normal Affect, Normal Mood Assessment and Plan - Assessment and Plan (Free Text) Assessment: 67M who has been taking aspirin, plavix, and as needed motrin without PPI is presenting with dark stool and syncope likely due to upper GI bleed #Acute blood loss anemia due to GI bleed #Esophageal Ulcer #Schatzki ring (mild) with small hiatal hernia #Gastric ulcer #Syncope #CAD #possible chronic systolic CHF #HTN #Tubular adenoma PLAN -EGD 12/26/17 with esophageal ulcer with clean base, hiatal hernia with schatzki's ring and gastric ulcer and erosions. -Transfuse pRBCs for Hb less than 7 or unstable anemia. -Continue PPI IV BID he can be transitioned to PO PPI tomorrow if stable. -Hold aspirin, plavix, NSAIDs, anticoagulation -Defer to cardiology on restarting Aspirin, Plavix but would recommend to continue to hold for the time being -Advance to full liquid diet -OK to transfer out of ICU from GI perspective -Recommend EGD in 8 wks to evaluate healing of ulcer with biopsy. <Earnest Noyola V - Last Filed: 12/30/17 00:02> Objective - Vital Signs/Intake and Output Vital Signs (last 24 hours): Temp Pulse Resp BP Pulse Ox 98.6 F 69 15 122/61 99 12/27/17 21:26 12/27/17 20:59 12/27/17 20:59 12/27/17 21:00 12/27/17 21:02 Intake and Output: 12/27/17 12/28/17 18:59 06:59 Intake Total 850 Output Total 1700 Balance -850 - Medications Medications: Current Medications Sodium Chloride (Sodium Chloride 0.9%) 1,000 mls @ 60 mls/hr IV .[id number] [facility] Last Admin: 12/27/17 04:54 Dose: 60 mls/hr Metoprolol Tartrate (Lopressor) 12.5 mg PO BID ISA Pantoprazole Sodium (Protonix Inj) 40 mg IVP Q12 [facility] Last Admin: 12/27/17 09:38 Dose: 40 mg - Labs Labs: 12/27/17 13:20 12/27/17 05:00 PT 12.7 SECONDS (9.4-12.5) H 12/25/17 15:53 INR 1.11 12/25/17 15:53 APTT 24.9 Seconds (25.1-36.5) L 12/25/17 15:53 Attending/Attestation - Attestation I have personally seen and examined this patient.: Yes I have fully participated in the care of the patient.: Yes I have reviewed all pertinent clinical information, including history, physical exam and plan: Yes Notes (Text): This is a delayed addendum to GI progress report dictated by the GI Fellow.The patient was seen and examined earlier. Medical records, lab studies, imagings were reviewed. Last 24 hours events reviewed. Agreed with the above treatment plan as outlined in GI Fellow 's notes with the addition of the following Status post EGD esophageal ulcerations Drop in blood count two units being transfused Would need a repeat EGD in two months Advised only soft diet 12/27/17 21:39 12/30/17 00:01
--- NOTE | 2017-12-27 11:22 | PN ---
DATE: 12/27/2017 SUBJECTIVE: The patient is seen and examined at bedside. He is alert, awake, oriented, enjoying his breakfast. His hemoglobin is stable. PHYSICAL EXAMINATION: VITAL SIGNS: Blood pressure 105/60, respiratory rate 17, oxygen saturation 100% on room air, heart rate 17. ENT: Head and neck atraumatic. LUNGS: Clear to auscultation bilaterally. HEART: Regular rate and rhythm. S1 and S2 normal. ABDOMEN: Soft, nontender and nondistended. MUSCULOSKELETAL: No C/C/E. NEURO: The patient moves all extremities spontaneously. SKIN: Moist. PSYCH: The patient is alert, awake and oriented x3. LABORATORY DATA: Hemoglobin 10.2, up from 8.8 without blood transfusion; WBC 11.6; platelet count 233. Sodium 136; potassium 3.9; chloride 98; carbon dioxide 32; BUN 43; creatinine 1.4, up from 0.9 (Nephrology consult requested); glucose 125; AST 34; ALT 22; total bilirubin 0.3. MEDICATIONS: Protonix 40 mg IV every 12, normal saline 60 mL/hour, metoprolol p.o. (was on hold due to drop in blood pressure to high 90s). ASSESSMENT AND PLAN: This is a 67-year-old gentleman, who presented to [facility] (Formerly [facility]3] with what appeared to be massive upper gastrointestinal bleed. However, the upper endoscopy performed by Dr. Noyola revealed nonbleeding esophageal ulcer, mild Schatzki ring; however, no bleeding lesion besides hematin found in the gastric fundus. We will transfer the patient to telemetry at present time. The patient was cleared by GI for oral intake, which he tolerates well. We will continue to target euvolemia, euglycemia, normothermia and oxygen saturation more than 90%. Mechanical deep venous thrombosis prophylaxis. Gastrointestinal prophylaxis. ccm time 40 min Mark Reilly MD MTDMillie
--- NOTE | 2017-12-27 13:24 | PN ---
DATE: 12/27/2017 LOCATION: The patient in ICU 128, bed 4. REASON FOR CONSULTATION: Follow up coronary artery disease, history of stent insertion, history of MO, GI bleeding, hypertension, dizziness, probably it was related to GI bleeding with postural hypotension. SUBJECTIVE: The patient lying flat in bed without chest pain, shortness of breath. Denies any black stool. Denies nausea or vomiting. Denies any palpitation. PHYSICAL EXAMINATION: VITAL SIGNS: Blood pressure 105/56, respirations 17, pulse 78, afebrile. HEENT: Head is normocephalic. Eyes: Pupils normal. Conjunctivae are slightly pale. NECK: JVP low. Carotid equal. THORAX: AP diameter normal. CARDIOVASCULAR: S1, S2. LUNGS: Clear. ABDOMEN: Soft, no tenderness, no organomegaly. Bowel sounds normal. EXTREMITIES: No clubbing, no cyanosis. LABORATORY DATA: WBC 11.6, hemoglobin 10.2, hematocrit 33.8, platelet 233. Sodium 136, potassium 3.9, BUN 43, creatinine 1.4, calcium 8.2, phosphorus 5, AST and ALT normal, total protein 5.3, albumin 2.7. The patient had endoscopy yesterday, it showed Schatzki ring, small punch gastric ulcers at esophageal gastric junction, small Carmela-Reyes tear, 1 cm hiatal hernia, islet path in esophagus. DIAGNOSES: Gastrointestinal bleeding, gastric ulcer, Carmela-Reyes tear, coronary artery disease, history of angioplasty and stent insertion, episode of dizziness on admission probably due to postural hypotension due to blood loss, renal dysfunction, probably also related to blood loss, history of hypertension, anemia, status post blood transfusion, status post gastro endoscopy. PLAN: The patient is started on a full liquid diet, tolerating it well, on Protonix 40 mg IV every 12 hours. The patient getting IV fluid 60 mL an hour. We will check orthostatic blood pressure and clinically the patient's cardiac status is stable. The patient's metoprolol 12.5 b.i.d. has been on hold with the concern of about any postural hypotension, but once blood pressure in three positions, it does not show any indication for that, then we will restart metoprolol 12.5 b.i.d. Ankita Cordero MD [facility] # [id number]
[2017-12-27 13:41] LABS: BASO # 0.04 K/mm3 (0.0-2.0); BASO % 0.6 % (0.0-3.0); EOS # 0.2 (0.0-0.7); EOS % 2.4 % (1.5-5.0); GRAN # 3.78 (1.4-6.5); GRAN % 60.4 % (50.0-68.0); HEMOGLOBIN 8.2 g/dL (14.0-18.0); LYMPH # 1.9 (1.2-3.4); LYMPH % 30.8 % (22.0-35.0); MEAN CELL VOLUME 90.3 fl (80.0-105.0); MEAN CORPUSCULAR HEMOGLOBIN 30.6 pg (25.0-35.0); MEAN CORPUSCULAR HGB CONC 33.9 g/dl (31.0-37.0); MEAN PLATELET VOLUME 9.8 fl (7.0-11.0); MONO # 0.4 (0.1-0.6); MONO % 5.8 % (1.0-6.0); RBC 2.68 10^6/uL (3.5-6.1); RED CELL DISTRIBUTION WIDTH 13.8 % (11.5-14.5); WHITE BLOOD COUNT 6.3 10^3/ul (4.5-11.0)
[2017-12-27 17:10] LABS: CREATININE,RANDOM URINE 53 mg/dL
--- NOTE | 2017-12-27 21:58 | CON ---
DATE OF CONSULTATION: 12/27/2017 REASON FOR CONSULTATION: Acute kidney injury. HISTORY OF PRESENT ILLNESS: This is a 67-year-old male, previously unknown to me, the patient is seen in the ICU. The patient was admitted on with complaints of two to three dark bowel movements. The patient reported a normal bowel movement and then subsequently he had a large black bowel movement. After that, he had two more bowel movements, which were also black. The patient complained of dizziness, lightheadedness. Hence, his brought him to the emergency room. In the emergency room, he was found to be somewhat hypotensive, blood pressure was 119/79, but during his ER stay dropped to 99/63. His hemoglobin was 11.7 at presentation, it dropped down to 8.2. His creatinine was 0.9 at presentation, today his creatinine has risen to 1.4, hence consultation is requested. The patient denies any chest pain. He denies any palpitations, but he has had two syncopal episodes during this stay. He passed out and Rapid Response was called on 12/25/2017 and that is when he was transferred to the ICU. The patient underwent an endoscopy and he was found to have a linear esophageal ulcer with no bleeding and no stigmata for recent bleeding, a mild Schatzki ring had been seen in the gastric fundus, and multiple dispersed small erosions were found in the stomach. He is currently sitting in the chair in the ICU, is at bedside. He denies any chest pain. He denies any shortness of breath. He denies any abdominal pain. PAST MEDICAL AND SURGICAL HISTORY: Hypertension, CAD, PTCA and stent, diverticulosis, internal hemorrhoids, BPH, history of prostatectomy, chronic Plavix and aspirin. FAMILY HISTORY: Noncontributory. SOCIAL HISTORY: No smoking, no alcohol use, no IV drug abuse. ALLERGIES: PENICILLIN. MEDICATIONS: Aspirin, Plavix, Lopressor 25 b.i.d., losartan/hydrochlorothiazide 100/25, Lipitor 40. REVIEW OF SYSTEMS: All systems are reviewed, pertinent positives as mentioned in the history of presenting illness, rest unremarkable. PHYSICAL EXAMINATION: GENERAL: Elderly male sitting in chair in the ICU. VITAL SIGNS: Blood pressure 108/58, heart rate 81, respiratory rate 8-12, temperature 98.4. HEENT: Normocephalic, atraumatic, positive pallor. NECK: Supple, no JVD. LUNGS: Bilateral equal entry, bilateral equal expansion, no rales. CARDIAC: S1 and S2, regular rate and rhythm, no murmur, no rub. ABDOMEN: Soft, nondistended, nontender, bowel sounds present. EXTREMITIES: No lower extremity edema. Oral intake and output 1780/1625. LABORATORY DATA: WBC 6.3, hemoglobin 8.2, hematocrit 24, temperature 14.6. Sodium 136, potassium 3.9, chloride 98, CO2 of 32, BUN 43, creatinine 1.4, glucose 125, calcium 8.2, phosphorus 5.0, magnesium 2.1, albumin 2.7, globulin 2.5. Urinalysis: Yellow, clear, pH 6, specific gravity 1.020, protein negative, glucose negative, ketones 15, leukocyte esterase negative. CURRENT MEDICATIONS: Lopressor 12.5 b.i.d. on hold, Protonix 40 IV every 12 hours, sodium chloride at 60. ASSESSMENT: 1. Acute kidney injury, likely acute tubular necrosis in the setting of GI bleed, hypotension. Renal hypoperfusion. 2. Severe anemia, hemoglobin has dropped from 10 to 8.2, recommend blood transfusion 1 unit. 3. History of coronary artery disease, PTCA and stent, 4. History of hypertension, currently low blood pressure. 5. Zimza-bz-jiycheh anemia. 6. Hemodynamic instability. PLAN: 1. Recommend holding antihypertensives for systolic blood pressure less than 120. 2. Transfuse 1 unit of PRBC. 3. Maintain hemoglobin around 9. 4. Continue to monitor closely in the ICU. 5. Check urine sodium, urine creatinine. 6. Expect creatinine to worsen before it gets better. 7. Case discussed with ICU nursing staff, case discussed with ICU residents. Case discussed with and the patient at bedside. More than 35 minutes were spent in the care of this critically ill patient. Mary Grace Price MD
[2017-12-27 23:06] VITALS: O2SAT 95
[2017-12-28 05:41] LABS: ALB/GLOB RATIO 1.3 (1.1-1.8); ALBUMIN 2.7 g/dL (3.0-4.8); ALT/SGPT 44 U/L (7-56); AST/SGOT 29 U/L (17-59); BLOOD UREA NITROGEN 15 mg/dL (7-21); CALCIUM 8.1 mg/dL (8.4-10.5); GFR NON-AFRICAN AMERICAN > 60
[2017-12-28 05:53] LABS: HEMOGLOBIN 7.6 g/dL (14.0-18.0); MEAN CELL VOLUME 89.2 fl (80.0-105.0); MEAN CORPUSCULAR HEMOGLOBIN 30.5 pg (25.0-35.0); MEAN CORPUSCULAR HGB CONC 34.2 g/dl (31.0-37.0); MEAN PLATELET VOLUME 9.5 fl (7.0-11.0); RBC 2.49 10^6/uL (3.5-6.1); RED CELL DISTRIBUTION WIDTH 13.5 % (11.5-14.5); WHITE BLOOD COUNT 4.8 10^3/ul (4.5-11.0)
--- NOTE | 2017-12-28 10:10 | CP.PCM.PN ---
<Richard Crowley - Last Filed: 12/28/17 10:06> Subjective - Date & Time of Evaluation Date of Evaluation: 12/28/17 Time of Evaluation: 10:06 - Subjective Subjective: Patient is doing well. Tolerating diet. Denies n/v/BMs. No signs of bleeding. Mild dizziness with standing this AM. Discussed with cardiology regarding plavix and aspirin. Objective - Vital Signs/Intake and Output Vital Signs (last 24 hours): Temp Pulse Resp BP Pulse Ox 98.5 F 75 17 100/58 L 95 12/28/17 06:00 12/28/17 06:00 12/27/17 23:00 12/27/17 23:00 12/27/17 23:00 Intake and Output: 12/28/17 12/28/17 06:59 18:59 Intake Total 720 Output Total 1255 Balance -535 - Medications Medications: Current Medications Sodium Chloride (Sodium Chloride 0.9%) 1,000 mls @ 60 mls/hr IV .[id number] [facility] Last Admin: 12/27/17 23:10 Dose: 60 mls/hr Metoprolol Tartrate (Lopressor) 12.5 mg PO BID [facility] Pantoprazole Sodium (Protonix Ec Tab) 40 mg PO 0600 [facility] - Labs Labs: 12/28/17 05:00 12/28/17 05:00 PT 12.7 SECONDS (9.4-12.5) H 12/25/17 15:53 INR 1.11 12/25/17 15:53 APTT 24.9 Seconds (25.1-36.5) L 12/25/17 15:53 - Constitutional Appears: Well, No Acute Distress - Head Exam Head Exam: NORMAL INSPECTION - Eye Exam Eye Exam: Normal appearance - ENT Exam ENT Exam: Mucous Membranes Moist - Respiratory Exam Respiratory Exam: Clear to Ausculation Bilateral, NORMAL BREATHING PATTERN - Cardiovascular Exam Cardiovascular Exam: REGULAR RHYTHM, +S1, +S2 - GI/Abdominal Exam GI & Abdominal Exam: Soft, Normal Bowel Sounds. absent: Tenderness - Back Exam Back Exam: NORMAL INSPECTION - Neurological Exam Neurological Exam: Alert, Awake, Oriented x3 - Psychiatric Exam Psychiatric exam: Normal Affect, Normal Mood - Skin Skin Exam: Dry, Normal Color Assessment and Plan - Assessment and Plan (Free Text) Assessment: 67M who has been taking aspirin, plavix, and as needed motrin without PPI is presenting with dark stool and syncope likely due to upper GI bleed #Acute blood loss anemia due to GI bleed #Esophageal Ulcer #Schatzki ring (mild) with small hiatal hernia #Gastric ulcer #Syncope #CAD #possible chronic systolic CHF #HTN #Tubular adenoma PLAN -EGD 12/26/17 with esophageal ulcer with clean base, hiatal hernia with schatzki's ring and gastric ulcer and erosions. -Transfuse pRBCs for Hb less than 7 or unstable anemia. -PPI PO daily indefinitely until repeat EGD and follow up -Hold plavix, NSAIDs, anticoagulation -Okay to restart Aspirin today. Discussed with cardiology which will hold plavix. -Advance to heart healthy diet -OK to transfer out of ICU from GI perspective -Recommend EGD in 8 wks to evaluate healing of ulcer with biopsy. -Transfuse 1 unit of pRBCs to a total of 2units given Hb 7.6, cardiac history and symptoms of dizziness. <Dennys,Kovil V - Last Filed: 12/30/17 00:04> Objective - Vital Signs/Intake and Output Vital Signs (last 24 hours): Temp Pulse Resp BP Pulse Ox 98.0 F 82 20 187/87 H 95 12/28/17 17:40 12/28/17 17:40 12/28/17 17:40 12/28/17 17:40 12/28/17 17:40 - Labs Labs: 12/28/17 17:55 12/28/17 05:00 PT 12.7 SECONDS (9.4-12.5) H 12/25/17 15:53 INR 1.11 12/25/17 15:53 APTT 24.9 Seconds (25.1-36.5) L 12/25/17 15:53 Attending/Attestation - Attestation I have personally seen and examined this patient.: Yes I have fully participated in the care of the patient.: Yes I have reviewed all pertinent clinical information, including history, physical exam and plan: Yes Notes (Text): This is an addendum to GI progress report dictated by the GI Fellow.The patient was seen and examined earlier. Medical records, lab studies, imagings were reviewed. Last 24 hours events reviewed. Agreed with the above treatment plan as outlined in GI Fellow 's notes with the addition of the following Sp transfusion HCT stable Abdomen soft mild tenderness in the epigastric area Discussed with the patient's Recommend soft diet High dose PPI followup Hb Repeat EGD in 6-8 weeks time for helping of the ulcer and biopsy followup 12/30/17 00:02
--- NOTE | 2017-12-28 11:24 | CT ---
Date of service: 12/28/2017 PROCEDURE: CT HEAD WITHOUT CONTRAST. HISTORY: dizziness COMPARISON: None available. TECHNIQUE: Axial computed tomography images were obtained through the head/brain without intravenous contrast. Supplemental Coronal and Sagittal projections created and reviewed. Radiation dose: Total exam DLP = 836.89 mGy-cm. This CT exam was performed using one or more of the following dose reduction techniques: Automated exposure control, adjustment of the mA and/or kV according to patient size, and/or use of iterative reconstruction technique. FINDINGS: HEMORRHAGE: No intracranial hemorrhage. BRAIN: No mass effect or edema. Cortical and cerebellar atrophy, periventricular small vessel disease. VENTRICLES: Unremarkable. No hydrocephalus. CALVARIUM: Unremarkable. PARANASAL SINUSES: Chronic ethmoid air cell disease. MASTOID AIR CELLS: Unremarkable as visualized. No inflammatory changes. OTHER FINDINGS: None. IMPRESSION: No acute intracranial abnormalities. No significant findings to account for the clinical presentation.
[2017-12-28 12:10] LABS: BASO # 0.02 K/mm3 (0.0-2.0); BASO % 0.3 % (0.0-3.0); EOS # 0.2 (0.0-0.7); EOS % 3.5 % (1.5-5.0); GRAN # 3.33 (1.4-6.5); GRAN % 57.9 % (50.0-68.0); HEMOGLOBIN 9.1 g/dL (14.0-18.0); LYMPH # 1.7 (1.2-3.4); LYMPH % 28.9 % (22.0-35.0); MEAN CELL VOLUME 90.3 fl (80.0-105.0); MEAN CORPUSCULAR HEMOGLOBIN 30.4 pg (25.0-35.0); MEAN CORPUSCULAR HGB CONC 33.7 g/dl (31.0-37.0); MEAN PLATELET VOLUME 9.6 fl (7.0-11.0); MONO # 0.5 (0.1-0.6); MONO % 9.4 % (1.0-6.0); RBC 2.99 10^6/uL (3.5-6.1); RED CELL DISTRIBUTION WIDTH 13.5 % (11.5-14.5); WHITE BLOOD COUNT 5.8 10^3/ul (4.5-11.0)
--- NOTE | 2017-12-28 12:26 | PN ---
DATE: 12/28/2017 LOCATION: The patient in ICU 128, bed 4. REASON FOR CONSULTATION AND FOLLOWUP: Coronary artery disease, GI bleeding, anemia, renal dysfunction. SUBJECTIVE: The patient denies any chest pain, shortness of breath, palpitation. When he stands up, he feels slightly weak and slightly dizzy. PHYSICAL EXAMINATION: VITAL SIGNS: Blood pressure 122/60, respirations 18, pulse is 84, temperature 98.5. HEENT: Head is normocephalic. Eyes: Pupils normal. Conjunctivae are slightly pale. NECK: JVP low. Carotid equal. THORAX: AP diameter normal. LUNGS: Clear. CARDIOVASCULAR: S1, S2. ABDOMEN: Soft, no tenderness, no organomegaly. Bowel sounds normal. EXTREMITIES: No clubbing, no cyanosis. LABORATORY DATA: WBC 4.8, hemoglobin 7.6, hematocrit 22.2, platelets 138. Sodium 139, potassium 3.7, BUN 15, creatinine 0.9, calcium 8.1, phosphorus 3.4, magnesium 1.9, total protein 4.9, albumin 2.7. DIAGNOSES: Gastrointestinal bleeding, gastric ulcer, coronary artery disease, history of angioplasty and stent insertion, history of hypertension, abnormal kidney function, probably dehydration on the basis of the gastrointestinal bleeding. The patient initially on admission has had also postural hypotension and dizziness and syncopal episode. The patient is status post gastroendoscopy, found to have gastric ulcer, status post blood transfusion. PLAN: The patient has coronary artery disease, has multiple stents; so, hemoglobin showing fall today, probably due to hydration and hemodilution, because initially BUN and creatinine was high; now BUN and creatinine is normal; so, it is a delusional effect and we will give two units of blood to the patient. We will continue Protonix 40 p.o. daily, two units of blood today. We will repeat CBC, SMA-7 in the morning. Metoprolol 12.5 b.i.d. is on hold because of borderline blood pressure yesterday. So, since BUN and creatinine is normal now, also we can DC the IV fluid and we will continue to follow with you. Ankita Cordero MD [facility] # [id number]
--- NOTE | 2017-12-28 12:52 | CP.PCM.DIS ---
Provider - Provider Date of Admission: 12/25/17 16:30 Attending physician: Caleb Rios MD Consults: Dr. Gil Linder Time Spent in preparation of Discharge (in minutes): 45 Hospital Course - Lab Results Lab Results: Micro Results 12/25/17 21:13 Nose MRSA Culture (Admit) - Final MRSA NOT DETECTED Most Recent Lab Values WBC 5.8 10^3/ul (4.5-11.0) D 12/28/17 11:50 RBC 2.99 10^6/uL (3.5-6.1) L 12/28/17 11:50 Hgb 9.1 g/dL (14.0-18.0) L 12/28/17 11:50 Hct 27.0 % (42.0-52.0) L 12/28/17 11:50 MCV 90.3 fl (80.0-105.0) 12/28/17 11:50 MCH 30.4 pg (25.0-35.0) 12/28/17 11:50 MCHC 33.7 g/dl (31.0-37.0) 12/28/17 11:50 RDW 13.5 % (11.5-14.5) 12/28/17 11:50 Plt Count 183 10^3/uL (120.0-450.0) 12/28/17 11:50 MPV 9.6 fl (7.0-11.0) 12/28/17 11:50 Gran % 57.9 % (50.0-68.0) 12/28/17 11:50 Lymph % (Auto) 28.9 % (22.0-35.0) 12/28/17 11:50 [place] % (Auto) 9.4 % (1.0-6.0) H 12/28/17 11:50 Eos % (Auto) 3.5 % (1.5-5.0) 12/28/17 11:50 Baso % (Auto) 0.3 % (0.0-3.0) 12/28/17 11:50 Gran # 3.33 (1.4-6.5) 12/28/17 11:50 Lymph # (Auto) 1.7 (1.2-3.4) 12/28/17 11:50 [place] # (Auto) 0.5 (0.1-0.6) 12/28/17 11:50 Eos # (Auto) 0.2 (0.0-0.7) 12/28/17 11:50 Baso # (Auto) 0.02 K/mm3 (0.0-2.0) 12/28/17 11:50 PT 12.7 SECONDS (9.4-12.5) H 12/25/17 15:53 INR 1.11 12/25/17 15:53 APTT 24.9 Seconds (25.1-36.5) L 12/25/17 15:53 Sodium 139 mmol/L (132-148) 12/28/17 05:00 Potassium 3.7 mmol/L (3.6-5.0) 12/28/17 05:00 Chloride 108 mmol/L (98-107) H 12/28/17 05:00 Carbon Dioxide 30 mmol/L (21-33) 12/28/17 05:00 Anion Gap 6 (10-20) L 12/28/17 05:00 BUN 15 mg/dL (7-21) 12/28/17 05:00 Creatinine 0.9 mg/dl (0.8-1.5) 12/28/17 05:00 Est GFR ( Amer) > 60 12/28/17 05:00 Est GFR (Non-Af Amer) > 60 12/28/17 05:00 POC Glucose (mg/dL) 167 mg/dL (65-110) H 12/27/17 12:25 Random Glucose 95 mg/dL (70-110) 12/28/17 05:00 Hemoglobin A1c 5.6 % (4.2-6.5) 12/25/17 21:01 Calcium 8.1 mg/dL (8.4-10.5) L 12/28/17 05:00 Phosphorus 3.4 mg/dL (2.5-4.5) 12/28/17 05:00 Magnesium 1.9 mg/dL (1.7-2.2) 12/28/17 05:00 Total Bilirubin 0.3 mg/dL (0.2-1.3) 12/28/17 05:00 AST 29 U/L (17-59) 12/28/17 05:00 ALT 44 U/L (7-56) 12/28/17 05:00 Alkaline Phosphatase 40 U/L (38-126) 12/28/17 05:00 Lactate Dehydrogenase 331 U/L (333-699) L 12/26/17 02:04 Total Creatine Kinase 181 U/L (35-230) 12/26/17 02:04 CK-MB (CK-2) 3.1 ng/mL (0.0-3.6) 12/25/17 15:53 CK-MB (CK-2) % Cancelled 12/25/17 15:53 Troponin I 0.02 ng/mL 12/26/17 02:04 Total Protein 4.9 g/dL (5.8-8.3) L 12/28/17 05:00 Albumin 2.7 g/dL (3.0-4.8) L 12/28/17 05:00 Globulin 2.2 gm/dL 12/28/17 05:00 Albumin/Globulin Ratio 1.3 (1.1-1.8) 12/28/17 05:00 Triglycerides 126 mg/dL (35-160) 12/25/17 21:01 Cholesterol 99 mg/dL (130-200) L 12/25/17 21:01 LDL Cholesterol Direct 54 mg/dL (0-129) 12/25/17 21:01 HDL Cholesterol 38 mg/dL (29-60) 12/25/17 21:01 Lipase 75 U/L (23-300) 12/25/17 15:53 TSH 3rd Generation 0.40 mIU/mL (0.46-4.68) L 12/25/17 21:01 Urine Color yellow (YELLOW) 12/25/17 17:00 Urine Appearance Clear (CLEAR) 12/25/17 17:00 Urine pH 6.0 (4.7-8.0) 12/25/17 17:00 Ur Specific [place] 1.020 (1.005-1.035) 12/25/17 17:00 Urine Protein Negative mg/dL (<30 mg/dL) 12/25/17 17:00 Urine Glucose (UA) Negative mg/dL (NEGATIVE) 12/25/17 17:00 Urine Ketones 15 mg/dL (NEGATIVE) H 12/25/17 17:00 Urine Blood Negative (NEGATIVE) 12/25/17 17:00 Urine Nitrate Negative (NEGATIVE) 12/25/17 17:00 Urine Bilirubin Negative (NEGATIVE) 12/25/17 17:00 Urine Urobilinogen 0.2 E.U./dL (<1 E.U./dL) 12/25/17 17:00 Ur Leukocyte Esterase Negative Gregory/uL (NEGATIVE) 12/25/17 17:00 Ur Random Creatinine 53 mg/dL 12/27/17 16:15 Ur Random Sodium 62 meq/L 12/27/17 16:15 Blood Type A NEGATIVE 12/28/17 11:50 Blood Type Confirm A NEGATIVE 12/25/17 18:00 Antibody Screen Negative 12/28/17 11:50 Crossmatch See Detail 12/28/17 11:50 BBK History Checked Patient has bt 12/28/17 11:50 - Hospital Course Hospital Course: Upon Admission Patient is a 67 year old male with a PMH of CAD, STEMI s/p PTCA w/ OUSMANE x 3 (2014) on ASA/Plavix, diverticulosis, internal hemorrhoids , colonic polyps, BPH and HTN who presented to the ED with dizziness and light headedness that started a few hours prior to presentation. After breakfast, the patient states that he had a normal bowel movement with normal caliber, but then had a large loose BM that was dark in color. Afterward, the patient became light headed and felt dizzy and had to sit down. He states that he had two smaller BM's afterward that were also dark in nature. In ED, the is bedside and states that the patient became dizzy, fell onto the stretcher as he was trying to stand. The patient denies any prior episodes of GI bleed, vomiting or dark stools. He also denies any episodes of fresh blood on toilet paper when wiping. He denies any excessive use of NSAIDS. The patient also denies any current chest or abdominal pain, nausea/vomiting, numbness/tingling. 12-pt ROS was reviewed and is otherwise unremarkable. Hospital Course Patient is a 67 yo male admitted for dizziness and lightheadedness. Patient stated had dark bowel movements at home. On labwork patient Hgb dropped 2-3 units during routine blood work measurements. Patient was given 1 unit of pRBCs and GI was consulted. Endoscopy was done which showed no active bleeding ulcers. Full report available in EMR. Patient was administered two more units of pRBCs as per cardio and GI. Repeat bloodwork showed and VSS are stable. Patient will be discharged and continue with aspirin, lipitor, protonix. Patient will not resume home blood pressure medications. Discharge Plan Patient is stable for discharge to home as per Dr. Heath. Patient will need to follow up with Dr. Jenkins and Dr. Cordero within 3-7 days of discahrge from hospital. Patient will resume only the following medications: Aspirin, Lipitor, Protonix until evaluation by Dr. Jenkins for blood pressure measurements. Jung cote will return to hospital if symptoms worsen or recur. Patient understands the plan as above and agrees. Disclaimer: Written above is a shortened synopsis of patient's current hospital admission. For full report refer to EMR. Discharge Exam - Head Exam Head Exam: NORMAL INSPECTION - Eye Exam Eye Exam: EOMI, Normal appearance. absent: Nystagmus, Scleral icterus - Respiratory Exam Respiratory Exam: NORMAL BREATHING PATTERN. absent: Rales, Rhonchi, Wheezes, Respiratory Distress - Cardiovascular Exam Cardiovascular Exam: REGULAR RHYTHM, +S1, +S2. absent: Tachycardia - GI/Abdominal Exam GI & Abdominal Exam: Normal Bowel Sounds, Soft. absent: Distended, Firm, Guarding, Tenderness - Neurological Exam Neurological exam: Alert, Normal Gait, Oriented x3 - Psychiatric Exam Psychiatric exam: Normal Affect, Normal Mood - Skin Skin Exam: Intact, Normal Color Discharge Plan - Discharge Medications Prescriptions: Pantoprazole [Protonix] 40 mg PO DAILY #30 ect - Follow Up Plan Condition: FAIR Disposition: HOME/ ROUTINE Patient education suggested?: Yes Additional Instructions: 1. Patient is stable for discharge to home as per Dr. Heath 2. Patient should followup with primary medical doctor, Dr. Jenkins, within 3-7 days of discharge from hospital. Patient should with Dr. Antunez/Gil with in 3- 7 days of discharge from hospital. 3. Patient should not continue home blood pressure medications Lopressor. Patient will continue lipitor, aspirin, and start taking protonix 40mg by mouth once daily. Patient will need to check his blood pressures at home and record it prior to meeting Dr. Jenkins. Primary medical doctor will restart blood pr essure medications after evaluation of patient if necessary. 4. Patient should return to hospital if symptoms worsen or recur. 5. Patient understands the plan as above and agrees. Referrals: Ankita Antunez MD [Staff Provider] - Derek Jenkins MD [Staff Provider] -
[2017-12-28 17:41] VITALS: BP 187/87; PULSE 82; RESP 20; TEMP 98
[2017-12-28 18:02] LABS: BASO # 0.04 K/mm3 (0.0-2.0); BASO % 0.6 % (0.0-3.0); EOS # 0.3 (0.0-0.7); EOS % 4.2 % (1.5-5.0); GRAN # 4.09 (1.4-6.5); GRAN % 59.3 % (50.0-68.0); HEMOGLOBIN 8.8 g/dL (14.0-18.0); LYMPH # 2.1 (1.2-3.4); LYMPH % 29.7 % (22.0-35.0); MEAN CELL VOLUME 90.2 fl (80.0-105.0); MEAN CORPUSCULAR HEMOGLOBIN 30.8 pg (25.0-35.0); MEAN CORPUSCULAR HGB CONC 34.1 g/dl (31.0-37.0); MEAN PLATELET VOLUME 9.3 fl (7.0-11.0); MONO # 0.4 (0.1-0.6); MONO % 6.2 % (1.0-6.0); RBC 2.86 10^6/uL (3.5-6.1); RED CELL DISTRIBUTION WIDTH 13.4 % (11.5-14.5); WHITE BLOOD COUNT 6.9 10^3/ul (4.5-11.0)
[2017-12-29] MEDS ORDERED: Pantoprazole 40 mg EC Tab PO SCH (06:00)
== END 2017-12-28 19:20 | disposition home or self-care (01) | DRG 377 ==
LOC: ED 14:10 → ERH 16:30 → 2RSO 18:15 → ICU 19:25 → 3RSO 12-28 12:32
PROVIDERS: ADMIT Internal Medicine; ATTEND Internal Medicine
PROC: 30233N1 Transfusion of Nonautologous Red Blood Cells into Peripheral Vein, Percutaneous Approach (ICD-10-PCS; 2017-12-25)
PROC: 0DJ08ZZ Inspection of Upper Intestinal Tract, Via Natural or Artificial Opening Endoscopic (ICD-10-PCS; principal; 2017-12-26 13:30)
DX: K92.2 Gastrointestinal hemorrhage, unspecified (principal); N17.0 Acute kidney failure with tubular necrosis; D62 Acute posthemorrhagic anemia; I50.22 Chronic systolic (congestive) heart failure; K22.10 Ulcer of esophagus without bleeding; K25.9 Gastric ulcer, unspecified as acute or chronic, without hemorrhage or perforation; K22.2 Esophageal obstruction; K44.9 Diaphragmatic hernia without obstruction or gangrene; K31.9 Disease of stomach and duodenum, unspecified; K63.5 Polyp of colon; I11.0 Hypertensive heart disease with heart failure; I25.10 Atherosclerotic heart disease of native coronary artery without angina pectoris; E11.9 Type 2 diabetes mellitus without complications; N40.0 Benign prostatic hyperplasia without lower urinary tract symptoms; K57.30 Diverticulosis of large intestine without perforation or abscess without bleeding; K64.8 Other hemorrhoids; J45.909 Unspecified asthma, uncomplicated; E86.0 Dehydration; I95.1 Orthostatic hypotension; I25.2 Old myocardial infarction; Z95.5 Presence of coronary angioplasty implant and graft; Z79.82 Long term (current) use of aspirin; Z79.02 Long term (current) use of antithrombotics/antiplatelets; Z88.0 Allergy status to penicillin

== ENCOUNTER 2018-03-16 11:04 | Day surgery (SDC) | payer MEDICARE, OTHER ==
[2018-03-09 11:39] VITALS: BMI 27.7
[2018-03-16 12:13] VITALS: RESP 18
[2018-03-16] MEDS ORDERED: Propofol 10 mg/ml Inj (20 ML) ONE (13:26)
[2018-03-16] MEDS ORDERED: Sodium Chloride 0.9% 1,000 ML IV SCH (13:30)
[2018-03-16 16:34] VITALS: BP 128/79; PULSE 62; TEMP 98.1; O2SAT 99
== END 2018-03-16 16:20 | disposition home or self-care (01) ==
LOC: ENDO 11:04
PROVIDERS: ATTEND Internal Medicine Gastroenterology
DX: K22.10 Ulcer of esophagus without bleeding (principal); K21.9 Gastro-esophageal reflux disease without esophagitis; K29.50 Unspecified chronic gastritis without bleeding; Z87.11 Personal history of peptic ulcer disease
CPT/HCPCS: 43239; 88305; 88312; 88342; J2001; J2704; J7030; J7040

== ENCOUNTER 2018-04-20 07:21 | Outpatient (CLI) | payer MEDICARE, OTHER | END 2018-04-20 07:22 | disposition home or self-care (01) | LOC: LAB 07:21 ==